=== PATIENT | female | born 1995 | race Caucasian/White ===

== ENCOUNTER 2024-04-08 19:03 | Emergency (ER) | payer OTHER, SELFPAY ==
[2024-04-08 19:15] VITALS: BP 139/81; PULSE 94; RESP 20; TEMP 36.7; O2SAT 98; BMI 32.3
--- NOTE | 2024-04-08 19:23 | CRLHL7_ITS ---
For Patients: As a result of the Cures Act, medical imaging exams and procedure reports are released immediately into your electronic medical record. You may view this report before your referring provider. If you have questions, please contact your health care provider. INDICATION: Shortness of breath TECHNIQUE: Chest radiograph 2 views COMPARISON: None FINDINGS: Mediastinum: The mediastinum is normal in appearance. The heart silhouette is normal in size and morphology. Mild elevation of the right hemidiaphragm is noted. Lung: Both lungs are unremarkable in appearance with small lung volumes. No sign of pleural effusion seen. No pneumothorax is identified. Bone and Soft tissue: Unremarkable for age. IMPRESSION: 1. No acute cardiopulmonary disease is seen. Dictated by Wood Sullivan MD @ 04/08/2024 7:45:11 PM Dictated by: Wood Sullivan MD @ 04/08/2024 19:45:20 (Electronically Signed)
--- OUTSIDE RECORDS SUMMARY | 2024-04-08 19:41 | XMS_ITS | Clinical Summary ---
Author Organization [facility] Address [address] [place] [address]. [place] [address] Care Team Providers Care Quarrying Specialist Name Role Phone Yael Neville MD Primary Care Provider mEmy Vance Industrial Machine Operator MACHINE RIVETER BILLING CUSTOMER SERVICE REPRESENTATIVE Unavailable [phone] Allergies Active Allergy Reactions Criticality Noted Date Comments Azithromycin 11/21/2011 Hives Contrast Dye 04/04/2006 Difficulty breathing Penicillins 12/16/2002 Medications buPROPion (WELLBUTRIN XL) 300 MG 24 hr tablet Take 300 mg by mouth daily 1 Active lamoTRIgine (LAMICTAL) 200 MG tablet Take 200 mg by mouth At Bedtime 1 Active SUMAtriptan (IMITREX) 100 MG tablet TK 1 T PO AOS OF HEADACHE. MAY REPEAT IN 2 H PRN 0 Active propranolol (INDERAL) 20 MG tablet Take 1 tablet (20 mg) by mouth 2 times daily 1 Active ipratropium (ATROVENT) 0.06 % nasal sprayIndicatio ns:Suspected COVID-19 virus infection Tyner 2 sprays in nostril 4 times daily 15 mL 1 1 Active guaiFENesin 1200 MG [id number] s:Suspected COVID-19 virus infection Take 1 tablet (1,200 mg) by mouth 2 times daily 60 tablet 1 Active metFORMIN (GLUCOPHAGE XR) 500 MG 24 hr tabletIndicati ons:PCOS (polycystic ovarian syndrome) TAKE 2 TABLETS BY MOUTH EVERY EVENING WITH DINNER 180 tablet 2 Active drospirenone-e thinyl estradiol (PASHA) 3-0.03 MG tabletIndicati ons:PCOS (polycystic ovarian syndrome) Take 1 tablet by mouth daily Patient will call when needs filled. 84 tablet 3 1 04/05/20 24 Discontinued Active Problems Problem Noted Date Diagnosed Date History of prolonged Q-T interval on ECG 020 Overview (01/13/2020): Associated with medication overdose. Normal after recovery. Seen by cardiology 01/02/20. 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 Provider to review and confirm. Passive suicidal ideations 06/12/2012 0 09/06/2016 Viral wart 06/10/2011 09/06/2016 Encounters Date Type Department Care Team Description 04/05/2024 4:55 AM GRAVITY METER OPERATOR - 04/05/2024 5:54 AM [facility] Emergency [facility] Emergency Dept [address] [place] [address] Juan Mares MD Sore throat; Acute cough Discharge Disposition: Home or Self Care 04/05/2024 Travel from Last 3 Months Immunizations Name Administration Dates Next Due COVID-19 MONOVALENT 12+ (Pfizer) 09/29/2020,05/0 06/2020 DTAP (<7y) 01/06/2003, 9,02/21/1998,12/23,1997 HEPA 07/15/2010,09/03/2009 HIB (PRP-T) 02/01/1999, 8,1997,11/03 HPV 03/03/2015,11/04/2014,07/25/2012 HepB 02/01/1999, 8,1997,09/13 Influenza (H1N1) 05/02/2009 Influenza (IIV3) PF 02/03/2011,06/17/2009 MMR 12/16/2002,02/01/1999 Mantoux Tuberculin Skin Test 12/07/2021,08/15/19 Meningococcal ACWY (Menactra ) 11/30/2015,07/25/2012 OPV, trivalent, live 09/22/1998,1997,11/03 Poliovirus, inactivated (IPV) 12/16/2002 TDAP Vaccine (Adacel) 10/10/2019,09/03/2009 Varicella 12/16/2002 Varicella Pt Report Hx of Varicella/Chicken Pox 05/01/2003 Family History Medical History Relation Comments Diabetes Maternal Grandfather Depression Mother Gastrointestinal Disease Other materna l aunt with IBS,mom's brother iwth some sort of gi issues Breast Cancer No family hx of C.A.D. No family hx of Cancer - colorectal No family hx of Hypertension No family hx of Relation Status Comments Father Alive Maternal Grandfather Mother Alive Other Social History Tobacco Use Types Packs/Day Years Used Date Smoking Tobacco: Former Vaping Device Quit: 12/02/2018 Smokeless Tobacco: Never Tobacco Cessation:Counseling Given: No Alcohol Use Standard Drinks/Week Comments Not Currently 0 (1 standard drink = 0.6 oz pur e alcohol) PHQ-2 Answer Date Recorded PHQ-2 Score 0 10/28/2020 Adolescent Education Answer Date Record ed Getting School Help Needed Not on file 02/01 Estimated Date of Delivery Comme nts Yes 08/06/2024 Sex and Gender Information Value Date Recorded Sex Assigned at Female 08/26/2020 11:58 AM CDT Legal Sex Female 3:37 AM GRAVITY METER OPERATOR Gender Identity Female 08/26/2020 11:58 AM CDT Sexual Orientation Choose not to disclose 2020 11:58 AM CDT Travel History Travel Start Travel End [place] 03/29/2024 03/31/2024 Last Filed Vital Signs Vital Sign Reading Time Taken Comments Blood Pressure 122/81 04/05/2024 4:49 AM GRAVITY METER OPERATOR Pulse 98 04/05/2024 4:49 AM GRAVITY METER OPERATOR Temperature 36.9 C (98.4 F) 04/05/2024 4:49 AM GRAVITY METER OPERATOR Respiratory Rate 20 04/05/2024 4:49 AM GRAVITY METER OPERATOR Oxygen Saturation 99% 04/05/2024 4:49 AM GRAVITY METER OPERATOR Inhaled Oxygen Concentration - - Weight 95.4 kg (210 lb 5.1 oz) 04/05/2024 4:49 A M GRAVITY METER OPERATOR Height 167.6 cm (5' 6) 04/05/2024 4:49 AM GRAVITY METER OPERATOR Body Mass Index 33.95 04/05/2024 4:49 AM GRAVITY METER OPERATOR Plan of Treatment Health Maintenance Due Date Last Done Comments PHQ-9 04/29/2021 10/28/2020, 04/2 11/2020, 09/10/2019, Additional history exists ANNUAL REVIEW OF HM ORDERS 10/28/2021 10/28/2020 YEARLY PREVENTIVE VISIT 10/28/2021 10/29/19 21, 08/14/2017, 11/30/2015, Additional history exists COVID-19 Vaccine ( season) 2023 04/19/2021, 09/29/2020, 08/31/2020 INFLUENZA VACCINE (#1) 2023 , 12/20/2021, 01/15/2021, Additional history exists ADVANCE CARE PLANNING 11/26/2024 11/27/2019 PAP 06/29/2025 06/29/2022, 10/28/2020 DTAP/TDAP/TD IMMUNIZATION (8 - Td or Tdap) 10/09/2029 10/10/2019, 09/03/2009, 01/06/2003, Additional history exists HEPATITIS B IMMUNIZATION Completed 999, 02/01/1999, 02/21/1998, Additional history exists HPV IMMUNIZATION Completed 03/13/2015, 06/2014, 11/04/2014, Additional history exists MENINGITIS IMMUNIZATION Completed 11/30/2015, 07/25 DEPRESSION ACTION PLAN Completed 11/28/2016, 2015 HEPATITIS C SCREENING Completed 10/28/2020 HIV SCREENING Completed 10/28/2020 CHLAMYDIA SCREENING Discontinued 06/29/2022, Pneumococcal Vaccine: Pediatrics (0 to 5 Years) and At-Risk Patients (6 to 64 Years) Aged Out No longer eligible based on patient's age to complete this topic RSV MONOCLONAL ANTIBODY Aged Out No l onger eligible based on patient's age to complete this topic RSV VACCINE (No Doses Required) Completed Procedures Procedure Name Priority Date/Time Associated Diagnosis Comments GROUP A STREPTOCOCCUS PCR THROAT SWAB STAT 04/05/2024 4:55 AM GRAVITY METER OPERATOR INFLUENZA A/B, RSV AND SARS-COV2 PCR STAT 04/05/2024 4:55 AM GRAVITY METER OPERATOR CHLAMYDIA TRACHOMATIS/NEISSERI A GONORRHOEAE BY PCR Routine 06/29/2022 4:48 PM GRAVITY METER OPERATOR Encounter for screening for infections with a predominantly sexual mode of transmission GYNECOLOGIC CYTOLOGY Routine 06/29/2022 4:06 PM GRAVITY METER OPERATOR Encounter for screening for malignant neoplasm of cervix [ICD-10-CM] HIV ANTIGEN ANTIBODY COMBO Routine 10/28/2020 4:20 PM CDT Screening for HIV (human immunodeficiency virus) HEPATITIS C SCREEN REFLEX TO HCV RNA QUANT AND GENOTYPE Routine 10/28/2020 4:20 PM CDT Need for hepatitis C screening test from Last 3 Months or Most Recently Relevant to Health Maintenance Results * Influenza A/B, RSV and SARS-CoV2 PCR (COVID-19) Nose (04/05/2024 4:55 AM GRAVITY METER OPERATOR) Influenza A PCR Negative Negative 04/05/2024 5:41 AM GRAVITY METER OPERATOR [facility] Influenza B PCR Negative Negative 04/05/2024 5:41 AM GRAVITY METER OPERATOR [facility] RSV PCR Negative Negative 04/05/2024 5:41 AM GRAVITY METER OPERATOR [facility] SARS CoV2 PCR Negative Negative 04/05/2024 5:41 AM GRAVITY METER OPERATOR [facility] Comment:NEGATIVE: SARS-CoV-2 (COVID-19) RNA not detected, presumed negative. Swab NASAL STRUCTURE / Unknown Non-blood Collection / Unknown 04/05/2024 4:55 AM GRAVITY METER OPERATOR 04/05/2024 5:02 AM GRAVITY METER OPERATOR Narrative LABORATORY - 04/05/2024 5:41 AM GRAVITY METER OPERATOR Testing was performed using the Xpert Xpress CoV2/Flu/RSV Assay on the [employer] Instrument. This test should be ordered for the detection of SARS- CoV2, influenza, and RSV viruses in individuals with signs and symptoms of respiratory tract infection. This test is for in vitro diagnostic use under the [place] FDA for laboratories certified under CLIA to perform high or moderate complexity testing. This test has been [place] FDA cleared. A negative result does not rule out the presence of PCR inhibitors in the specimen or target RNA in concentration below the limit of detection for the assay. If only one viral target is positive but coinfection with multiple targets is suspected, the sample should be re-tested with another FDA cleared, approved, or authorized test, if coninfection would change clinical management. This test was validated by the [facility] [employer]. These laboratories are certified under the Clinical Laboratory Improvement Amendments of 1988 (CLIA-88) as qualified to perfom high complexity laboratory testing. Juan Mares MD LAB - MICRO GENER AL ORDERABLES Final Result [facility] Acute Care Lab [address] [facility] (1st floor, no room number) [place] [address], [facility] * Group A Streptococcus PCR Throat Swab (04/05/2024 4:55 AM GRAVITY METER OPERATOR) Group A strep by PCR Not Detected Not Detected 04/05/2024 5:29 AM GRAVITY METER OPERATOR LABORATORY Swab STRUCTURE OF ANTERIOR PORTION OF NECK / Unknown Non-blood Collection / Unknown 04/05/2024 4:55 AM GRAVITY METER OPERATOR 04/05/2024 5:02 AM GRAVITY METER OPERATOR Narrative LABORATORY - 04/05/2024 5:29 AM GRAVITY METER OPERATOR The Xpert Xpress Strep A test, performed on the [employer] Systems, is a rapid, qualitative in vitro diagnostic test for the detection of Streptococcus pyogenes (Group A -hemolytic Streptococcus, Strep A) in throat swab specimens from patients with signs and symptoms of pharyngitis. The Xpert Xpress Strep A test can be used as an aid in the diagnosis of Group A Streptococcal pharyngitis. The assay is not intended to monitor treatment for Group A Streptococcus infections. The Xpert Xpress Strep A test utilizes an automated real-time polymerase chain reaction (PCR) to detect Streptococcus pyogenes DNA. us Juan Mares MD LAB - MICRO GENER AL ORDERABLES Final Result [facility] Acute [facility] Lab [address] [facility] (1st floor, no room number) [place] [address], [facility] * Chlamydia trachomatis/Neisseria gonorrhoeae by PCR (06/29/2022 4:48 PM GRAVITY METER OPERATOR) Pathologist [facility] Chlamydia Trachomatis Negative Negative 06/30/2022 12:02 PM GRAVITY METER OPERATOR [facility] Comment: Negative for C. trachomatis rRNA by edge grinder machine mediated amplification. A negative result by edge grinder machine mediated amplification does not preclude the presence of infection because results are dependent on proper and adequate collection, absence of inhibitors and sufficient rRNA to be detected. Neisseria gonorrhoeae Negative Negative 06/30/2022 12:02 PM GRAVITY METER OPERATOR [facility] Comment:Negative for N. gono rrhoeae rRNA by edge grinder machine mediated amplification. A negative result by edge grinder machine mediated amplification does not preclude the presence of C. trachomatis infection because results are dependent on proper and adequate collection, absence of inhibitors and sufficient rRNA to be detected. Swab VAGINAL STRUCTURE / Unknown Non-blood Collection / Unknown 06/29/2022 4:48 PM GRAVITY METER OPERATOR 06/29/2022 8:05 PM GRAVITY METER OPERATOR Rabia Aguilar MD LAB - MICRO G ENERAL ORDERABLES Final Result [facility] Inf. Diseases Diag. Lab [address] [facility], [address] [place] [address], [place] [phone] * Gynecologic Cytology (PAP) (06/29/2022 4:06 PM GRAVITY METER OPERATOR) Interpretation Negative for Intraepithelial Lesion or Malignancy (NILM) 07/04/2022 10:47 AM GRAVITY METER OPERATOR [facility] Comment Papanicolaou Test Limitations: Cervical cytology is a screening test with limited sensitivity, and regular screening is critical for cancer prevention. Pap tests are primarily effective for the diagnosis/prevent ion of squamous cell carcinoma, not adenocarcinoma or other cancers. 07/04/2022 10:47 AM GRAVITY METER OPERATOR [facility] Specimen Adequacy Satisfactory for evaluation, endocervical/holcomb sformation zone component present 07/04/2022 10:47 AM GRAVITY METER OPERATOR [facility] Clinical Information none 07/04/2022 10:47 AM GRAVITY METER OPERATOR [facility] LMP/Menopause Date 06/04/22 07/04/2022 10:47 AM GRAVITY METER OPERATOR [facility] Reflex Testing Yes if ASCUS 07/05/19 10:47 AM GRAVITY METER OPERATOR [facility] Previous Abnormal? No 07/04/2022 10:47 AM GRAVITY METER OPERATOR [facility] Previous Abnormal Diagnosis negative 07/04/2022 10:47 AM GRAVITY METER OPERATOR [facility] Performing Labs The technical component of this testing was completed at [facility] 07/04/2022 10:[address] [facility] Brushing ENDOCERVICAL STRUCTURE / Unknown 06/29/2022 4:06 PM GRAVITY METER OPERATOR 06/29/2022 8:03 PM GRAVITY METER OPERATOR Rabia Lilia RECINOS - TYRONE Final Result [facility] [address] [facility], [address] [place] [address], [facility] [phone] * HIV Antigen Antibody Combo (10/28/2020 4:20 PM CDT) HIV Antigen Antibody Combo Nonreactive NR^Nonrea ctive 10/29/2020 4:34 PM CDT [facility] Comment:HIV-1 p24 Ag & HIV-1 /HIV-2 Ab Not Detected Blood 10/28/2020 4:20 PM CDT 10/28/2020 4:21 PM CDT Yael Neville MD LAB - BLOOD ORDERABLES Cary l Result [facility] [address] [place] [address] * Hepatitis C Screen Reflex to HCV RNA Quant and Genotype (10/28/2020 4:20 PM CDT) Hepatitis C Antibody Nonreactive NR^Nonre active 10/29/2020 4:41 PM CDT [facility] Comment: Assay performance characteristics have not been established for newborns, infants, and children Blood 10/28/2020 4:20 PM CDT 10/28/2020 4:21 PM CDT Yael Neville MD LAB - BLOOD ORDERABLES Cary l Result Performing Organization Address [facility] Co de Phone Number [facility] [address] [place] [address] from Last 3 Months or Most Recently Relevant to Health Maintenance Insurance [employer] [facility] Advance Directives For more information, please contact: [phone] * Full Code (Latest Code Status on File) Date Activated Date Inactivated Comments 10/10/2019 12:38 PM 10/11/2019 4:37 PM Question Answer Comments Code status determined by: Discussion with patie nt/legal decision maker Care Teams Quarrying Specialist Relationship Specialty Start Date End Date Yael Neville MD [facility] [place] [address] PCP - General Internal Medicine 04/11/16 Emmy Vance Cnp, MARU BILLING CUSTOMER SERVICE REPRESENTATIVE [employer] [place] [address] [place] [address] Nurse Practitioner Nurse Practitioner 08/26/20
--- OUTSIDE RECORDS SUMMARY | 2024-04-08 19:42 | XMS_ITS | Encounter Summary ---
Author Organization [facility] Address [address] [place] [address]. [place] [address] Care Team Providers Care Deck And Hull Assembler Name Role Phone Yael Neville MD Primary Care Provider [phone] Yael Neville MD Unavailable [phone] Gabino Peña MD Unavailable [phone] Alison Yan PA-C Unavailable [phone] Emmy Vance Power Transformer Repair Supervisor REGISTERED ASSOCIATE INCLUSION SPECIAL EDUCATOR Unavailable [phone] Encounter Details Date Type Department Care Team (Late st Contact Info) Description 09/01/2020 Documentation Only INTERFACED REPORT Unknown, Provider Social History Tobacco Use Types Packs/Day Years Used Date Smoking Tobacco: Former Vaping Device Quit: 12/02/2018 Smokeless Tobacco: Never Alcohol Use Standard Drinks/Week Comments Not Currently 0 (1 standard drink = 0.6 oz pur e alcohol) PHQ-2 Answer Date Recorded PHQ-2 Score 0 12/02/2019 Comments No Sex and Gender Information Value Date Recorded Sex Assigned at Female 08/26/2020 11:58 AM CDT Legal Sex Female 3:37 AM VOICE ENGINEER Gender Identity Female 08/26/2020 11:58 AM CDT Sexual Orientation Choose not to disclose 2020 11:58 AM CDT Travel History Travel Start Travel End [place] 03/29/2024 03/31/2024 COVID-19 Exposure Response Date Recorded In the last month, have you been in contact with someone who was confirmed or suspected to have Coronavirus / COVID-19? No / Unsure 08/26/2020 2:17 PM CDT documented as of this encounter Plan of Treatment Not on file documented as of this encounter Visit Diagnoses Not on filedocumented in this encounter Additional Health Concerns Assessment Noted Time PHQ-9 Depression Total Score: 3 08/28/19 21 7:02 AM CDT documented as of this encounter Care Teams Deck And Hull Assembler Relationship Specialty Start Date End Date Yael Neville MD [address] [place] [address] [place] [address] PCP - General Internal Medicine 04/11/16 Yael Neville MD [address] [place] [address] [place] [address] Assigned PCP 06/13/16 03/22/24 Gabino Peña MD [address] [place] [address] Assigned Heart and Vascular Provider 02/21/20 07/03/21 Alison Yan PA-C [address] [place] [address] Assigned Sleep Provider 07/15/20 2 Emmy Vance Power Transformer Repair Supervisor, MARU INCLUSION SPECIAL EDUCATOR [employer] [place] [address] [place] [address] Nurse Practitioner Nurse Practitioner 08/26/20 documented as of this encounter
--- OUTSIDE RECORDS SUMMARY | 2024-04-08 19:42 | XMS_ITS | Encounter Summary ---
Author Organization [facility] Address [address] [place] [address]. [place] [address] Care Team Providers Care Structural Steel Worker Apprentice Name Role Phone Yael Neville MD Primary Care Provider [phone] Yael Neville MD Unavailable [phone] Frank Morrow Unavailable Unavailable Saul Freire Unavailable [phone] Gabino Peña MD Unavailable [phone] Alison Yan PA-C Unavailable [phone] Emmy Vance Nutrition Internship SUSTAINABILITY COACH LABORATORY COORDINATOR Unavailable [phone] Reason for Visit * Reason Comments Medication Refill Encounter Details Date Type Department Care Team (Late st Contact Info) Description 06/26/2019 Refill [facility] Jacek [address] [place] [address] [address] [place] [address] Yael Neville MD [address] [place] [address] [place] [address] Medication Refill Social History Tobacco Use Types Packs/Day Years Used Date Smoking Tobacco: Never Smokeless Tobacco: Never Alcohol Use Standard Drinks/Week Comments Yes 0 (1 standard drink = 0.6 oz pur e alcohol) PHQ-2 Answer Date Recorded PHQ-2 Score 0 05/14/2019 Comments No Sex and Gender Information Value Date Recorded Sex Assigned at Female 08/26/2020 11:58 AM CDT Legal Sex Female 3:37 AM COSTUMER Gender Identity Female 08/26/2020 11:58 AM CDT Sexual Orientation Choose not to disclose 2020 11:58 AM CDT Travel History Travel Start Travel End [place] 03/29/2024 03/31/2024 documented as of this encounter Miscellaneous Notes * Telephone Encounter - Arin Tay RN - 06/27/2019 9:51 AM COSTUMER Prescription approved per [facility] Refill Protocol. UMER documented in this encounter Plan of Treatment Not on file documented as of this encounter Visit Diagnoses Diagnosis 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 Polycystic ovaries documented in this encounter Additional Health Concerns Infection Onset Date Last Indicated Resolved Time Rule Out COVID-19 01/14/2020 01/14/2020 01/15/2020 10:31 PM CDT Rule Out COVID-19 04/06/2020 04/06/2020 04/07/2020 10:32 AM COSTUMER Rule Out COVID-19 06/11/2020 06/11/2020 06/11/2020 7:00 PM COSTUMER Assessment Noted Time PHQ-9 Depression Total Score: 8 05/15/19 20 7:02 AM COSTUMER documented as of this encounter Care Teams Structural Steel Worker Apprentice Relationship Specialty Start Date End Date Yael Neville MD [address] [place] [address] [place] [address] PCP - General Internal Medicine 04/11/16 Yael Neville MD [address] [place] [address] [place] [address] Assigned PCP 06/13/16 03/22/24 Frank Morrow Personal Advocate & Liaison (PAL) 03/11/19 11/03/19 Saul Freire LSW [facility] Digital Media Designer Primary Care - CC 12/02/1903/20 Gabino Peña MD [address] [place] [address] Assigned Heart and Vascular Provider 02/21/20 07/03/21 Alison Yan PA-C [address] [place] [address] Assigned Sleep Provider 07/15/20 2 Emmy Vance Cnp, APRN LABORATORY COORDINATOR [employer] [place] [address] [place], [place] [id number] Nurse Practitioner Nurse Practitioner 08/26/20 documented as of this encounter
--- OUTSIDE RECORDS SUMMARY | 2024-04-08 19:42 | XMS_ITS | Encounter Summary ---
Author Organization [facility] Address [address] [place] [address]. [place] [address] Care Team Providers Care Chemical Dependency Counselor Name Role Phone Yael Neville MD Primary Care Provider [phone] Yael Neville MD Unavailable Frank Morrow Unavailable Unavailable Saul Freire Unavailable [phone] Gabino Peña MD Unavailable [phone] Alison Yan PA-C Unavailable [phone] Emmy Vance Ged Preparation Teacher SHELLFISH WEIGHER SQUEEGEE FINISHER Unavailable [phone]- [phone] Encounter Details Date Type Department Care Team (Late st Contact Info) Description 10/07/2019 MyC Medical Advice [facility] [address] [facility] [address] [place] [address] Yael Neville MD [address] [facility] [place] [address] Social History Tobacco Use Types Packs/Day Years Used Date Smoking Tobacco: Never Smokeless Tobacco: Never Alcohol Use Standard Drinks/Week Comments Yes 0 (1 standard drink = 0.6 oz pur e alcohol) PHQ-2 Answer Date Recorded PHQ-2 Score 4 09/10/2019 Comments No Sex and Gender Information Value Date Recorded Sex Assigned at Female 08/26/2020 11:58 AM CDT Legal Sex Female 3:37 AM RESEARCH ARCHAEOLOGIST Gender Identity Female 08/26/2020 11:58 AM CDT Sexual Orientation Choose not to disclose 2020 11:58 AM CDT Travel History Travel Start Travel End [place] 03/29/2024 03/31/2024 COVID-19 Exposure Response Date Recorded In the last month, have you been in contact with someone who was confirmed or suspected to have Coronavirus / COVID-19? No / Unsure 10/10/2019 2:22 AM CDT documented as of this encounter Miscellaneous Notes * Telephone Encounter - Yael Neville MD - 10/09/2019 3:19 PM CDT To staff. saying OK to work on 10/12. She should be able to print from [employer]. Yael Neville M.D. documented in this encounter Plan of Treatment Not on file documented as of this encounter Visit Diagnoses Not on filedocumented in this encounter Additional Health Concerns Infection Onset Date Last Indicated Resolved Time Rule Out COVID-19 01/14/2020 01/14/2020 01/15/2020 10:31 PM CDT Rule Out COVID-19 04/06/2020 04/06/2020 04/07/2020 10:32 AM RESEARCH ARCHAEOLOGIST Rule Out COVID-19 06/11/2020 06/11/2020 06/11/2020 7:00 PM RESEARCH ARCHAEOLOGIST Assessment Noted Time PHQ-9 Depression Total Score: 16 020 8:26 AM CDT documented as of this encounter Care Teams Chemical Dependency Counselor Relationship Specialty Start Date End Date Yael Neville MD [address] [place] [address] [place] [address] PCP - General Internal Medicine 04/11/16 Yael Neville MD [address] [facility] [place] [address] Assigned PCP 06/13/16 03/22/24 Frank Morrow Personal Advocate & Liaison (PAL) 03/11/19 11/03/19 Saul Freire LSW Clinic Correction Officer Head Primary Care - CC 12/02/1903/20 Gabino Peña MD [address] [place] [id number] Assigned Heart and Vascular Provider 02/21/20 07/03/21 Alison Yan PA-C [address] [place] [address] Assigned Sleep Provider 07/15/20 2 Emmy Vance Cnp, MARU DOWNS [employer] [place] [address] [place] [address] Nurse Practitioner Nurse Practitioner 08/26/20 documented as of this encounter
--- OUTSIDE RECORDS SUMMARY | 2024-04-08 19:42 | XMS_ITS | Encounter Summary ---
Author Organization [facility] Address [address] [place] [address]. [place] [address] Care Team Providers Care Photographic Editor Name Role Phone Yael Neville MD Primary Care Provider [phone] Yael Neville MD Unavailable [phone] Gabino Peña MD Unavailable [phone] Alison Yan PA-C Unavailable [phone] Emmy Vance Grooving Machine Operator INSULATION CUPOLA CHARGER MACHINE FEATHEREDGER AND REDUCER Unavailable [phone] Encounter Details Date Type Department Care Team (Late st Contact Info) Description 09/30/2020 Documentation Only INTERFACED REPORT Unknown, Provider Social [...] AM CDT Legal Sex Female 3:37 AM HOTBED LEVER OPERATOR Gender Identity Female 08/26/2020 11:58 AM CDT Sexual Orientation Choose not to disclose 2020 11:58 AM CDT Travel History Travel Start Travel End [place] 03/29/2024 03/31/2024 documented as of this encounter Plan of Treatment Not on file documented as of this encounter Visit Diagnoses Not on filedocumented in this encounter Additional Health Concerns Assessment Noted Time PHQ-9 Depression Total Score: 3 08/28/19 21 7:02 AM CDT documented as of this encounter Care Teams Photographic Editor Relationship Specialty Start Date End Date Yael Neville MD [facility] [place] [address] PCP - General Internal Medicine 04/11/16 Yael Neville MD [address] [place] [address] [place] [address] Assigned PCP 06/13/16 03/22/24 Gabino Peña MD [address] [place] [address] Assigned Heart and Vascular Provider 02/21/20 07/03/21 Alison Yan PA-C [address] [place] [address] Assigned Sleep Provider 07/15/20 2 Emmy Vance Cnp, MARU DOWNS [employer] [place] [address] [place] [address] Nurse Practitioner Nurse Practitioner 08/26/20 documented as of this encounter
--- OUTSIDE RECORDS SUMMARY | 2024-04-08 19:42 | XMS_ITS | Referral Summary ---
Author Organization [facility] Address [address] [place] [address]. [place] [address] Care Team Providers Care Gas Torch Brazier Name Role Phone Yael Neville MD Primary Care Provider Emmy Vance Cardiology Physician AGENCY OPERATOR TAGMAN Unavailable [phone] Encounters Date Type Department Care Team Description 04/05/2024 Travel 04/05/2024 4:55 AM RUBBER TURNER - 04/05/2024 5:54 AM RUBBER TURNER Emergency [facility] Emergency Dept [address] [place] [address] Juan Mares MD Sore throat; Acute cough Discharge Disposition: Home or Self Care from Last 3 Months Allergies Active Allergy Reactions Criticality Noted Date [...] % nasal sprayIndicatio ns:Suspected COVID-19 virus infection [place] 2 sprays in nostril 4 times daily 15 mL 1 1 Active guaiFENesin 1200 MG [id number] s:Suspected COVID-19 virus infection Take 1 tablet [...] 06/12/2012 0 09/06/2016 Viral wart 06/10/2011 09/06/2016 Immunizations Name Administration Dates Next Due COVID-19 [...] Pt Report Hx of Varicella/Chicken Pox 05/01/2003 Social History Tobacco Use Types Packs/Day Years [...] AM CDT Legal Sex Female 3:37 AM RUBBER TURNER Gender Identity Female 08/26/2020 11:58 AM CDT Sexual Orientation Choose not to disclose 2020 11:58 AM CDT Travel History Travel Start Travel End [place] 03/29/2024 03/31/2024 Last Filed Vital Signs Vital Sign Reading Time Taken Comments Blood Pressure 122/81 04/05/2024 4:49 AM RUBBER TURNER Pulse 98 04/05/2024 4:49 AM RUBBER TURNER Temperature 36.9 C (98.4 F) 04/05/2024 4:49 AM RUBBER TURNER Respiratory Rate 20 04/05/2024 4:49 AM RUBBER TURNER Oxygen Saturation 99% 04/05/2024 4:49 AM RUBBER TURNER Inhaled Oxygen Concentration - - Weight 95.4 kg (210 lb 5.1 oz) 04/05/2024 4:49 A M RUBBER TURNER Height 167.6 cm (5' 6) 04/05/2024 4:49 AM RUBBER TURNER Body Mass Index 33.95 04/05/2024 4:49 AM RUBBER TURNER Plan of Treatment Not on file Procedures Procedure Name Priority Date/Time Associated Diagnosis Comments GROUP A STREPTOCOCCUS PCR THROAT SWAB STAT 04/05/2024 4:55 AM RUBBER TURNER INFLUENZA A/B, RSV AND SARS-COV2 PCR STAT 04/05/2024 4:55 AM RUBBER TURNER CHLAMYDIA TRACHOMATIS/NEISSERI A GONORRHOEAE BY PCR Routine 06/29/2022 4:48 PM RUBBER TURNER Encounter for screening for infections with a predominantly sexual mode of transmission GYNECOLOGIC CYTOLOGY Routine 06/29/2022 4:06 PM RUBBER TURNER Encounter for screening for malignant neoplasm of [...] SARS-CoV2 PCR (COVID-19) Nose (04/05/2024 4:55 AM RUBBER TURNER) Influenza A PCR Negative Negative 04/05/2024 5:41 AM RUBBER TURNER [facility] Influenza B PCR Negative Negative 04/05/2024 5:41 AM RUBBER TURNER [facility] RSV PCR Negative Negative 04/05/2024 5:41 AM RUBBER TURNER [facility] SARS CoV2 PCR Negative Negative 04/05/2024 5:41 AM RUBBER TURNER [facility] Comment:NEGATIVE: SARS-CoV-2 (COVID-19) RNA not detected, presumed negative. Swab NASAL STRUCTURE / Unknown Non-blood Collection / Unknown 04/05/2024 4:55 AM RUBBER TURNER 04/05/2024 5:02 AM RUBBER TURNER Narrative LABORATORY - 04/05/2024 5:41 AM RUBBER TURNER Testing was performed using the Xpert Xpress CoV2/Flu/RSV Assay on the [employer] Clubpert Instrument. This test should be ordered for [...] management. This test was validated by the [facility]. These laboratories are certified under the Clinical Laboratory Improvement Amendments of 1988 (CLIA-88) as qualified to perfom high complexity laboratory testing. Juan Mares MD LAB - MICRO GENER AL ORDERABLES Final Result LABORATORY [facility] Acute Care Lab [address] [facility] (1st floor, no room number) [place] [address], [facility] * Group A Streptococcus PCR Throat Swab (04/05/2024 4:55 AM RUBBER TURNER) Group A strep by PCR Not Detected Not Detected 04/05/2024 5:29 AM RUBBER TURNER LABORATORY Swab STRUCTURE OF ANTERIOR PORTION OF NECK / Unknown Non-blood Collection / Unknown 04/05/2024 4:55 AM RUBBER TURNER 04/05/2024 5:02 AM RUBBER TURNER Narrative LABORATORY - 04/05/2024 5:29 AM RUBBER TURNER The Xpert Xpress Strep A test, performed on the GeneXpert Instrument Systems, is a rapid, qualitative in [...] - MICRO GENER AL ORDERABLES Final Result [facility] Acute Care Lab [address] [facility] (1st floor, no room number) [place] [address], [facility] * Chlamydia trachomatis/Neisseria gonorrhoeae by PCR (06/29/2022 4:48 PM RUBBER TURNER) Pathologist [facility] Chlamydia Trachomatis Negative Negative 06/30/2022 12:02 PM RUBBER TURNER [facility] Comment: Negative for C. trachomatis rRNA by glass designer mediated amplification. A negative result by glass designer mediated amplification does not preclude the presence of infection because results are dependent on proper and adequate collection, absence of inhibitors and sufficient rRNA to be detected. Neisseria gonorrhoeae Negative Negative 06/30/2022 12:02 PM RUBBER TURNER [facility] Comment:Negative for N. gono rrhoeae rRNA by glass designer mediated amplification. A negative result by glass designer mediated amplification does not preclude the presence of C. trachomatis infection because results are dependent on proper and adequate collection, absence of inhibitors and sufficient rRNA to be detected. Swab VAGINAL STRUCTURE / Unknown Non-blood Collection / Unknown 06/29/2022 4:48 PM RUBBER TURNER 06/29/2022 8:05 PM RUBBER TURNER Rabia Aguilar MD LAB - MICRO G ENERAL ORDERABLES Final Result [facility] Inf. Diseases Diag. Lab [address] [facility], [address] [place] [address], [place] [phone] * Gynecologic Cytology (PAP) (06/29/2022 4:06 PM RUBBER TURNER) Interpretation Negative for Intraepithelial Lesion or Malignancy (NILM) 07/04/2022 10:47 AM RUBBER TURNER [facility] Comment Papanicolaou Test Limitations: Cervical cytology is a screening test with limited sensitivity, and regular screening is critical for cancer prevention. Pap tests are primarily effective for the diagnosis/prevent ion of squamous cell carcinoma, not adenocarcinoma or other cancers. 07/04/2022 10:47 AM RUBBER TURNER [facility] Specimen Adequacy Satisfactory for evaluation, endocervical/holocmb sformation zone component present 07/04/2022 10:47 AM RUBBER TURNER [facility] Clinical Information none 07/04/2022 10:47 AM RUBBER TURNER [facility] LMP/Menopause Date 06/04/22 07/04/2022 10:47 AM RUBBER TURNER [facility] Reflex Testing Yes if ASCUS 07/05/19 10:47 AM RUBBER TURNER [facility] Previous Abnormal? No 07/04/2022 10:47 AM RUBBER TURNER [facility] Previous Abnormal Diagnosis negative 07/04/2022 10:47 AM RUBBER TURNER [facility] Performing Labs The technical component of this testing was completed at [facility] 07/04/2022 10:47 AM [facility] Brushing ENDOCERVICAL STRUCTURE / Unknown 06/29/2022 4:06 PM RUBBER TURNER 06/29/2022 8:03 PM RUBBER TURNER Rabia Aguilar MD LAB - TYRONE Final Result [facility] [address] [facility], [address] [address], [facility] [phone] * HIV Antigen Antibody Combo (10/28/2020 4:20 PM CDT) HIV Antigen Antibody Combo Nonreactive NR^Nonrea ctive 10/29/2020 4:34 PM CDT [facility] Comment:HIV-1 p24 Ag & HIV-1 /HIV-2 Ab Not Detected Blood 10/28/2020 4:20 PM CDT 10/28/2020 4:21 PM CDT us Yael Neville MD LAB - BLOOD ORDERABLES Cary l Result [facility] [address] [place] [address] * Hepatitis C Screen Reflex to HCV RNA Quant and Genotype (10/28/2020 4:20 PM CDT) Hepatitis C Antibody Nonreactive NR^Nonre active 10/29/2020 4:41 PM CDT [facility] Comment: Assay performance characteristics have not been established for newborns, infants, and children Blood 10/28/2020 4:20 PM CDT 10/28/2020 4:21 PM CDT us Yael Neville MD LAB - BLOOD ORDERABLES Cary l Result Performing Organization Address City/[facility]/ZIP Co de Phone Number [address] [address] from Last 3 Months or Most Recently Relevant to Health Maintenance Insurance [employer] COMMERCIAL [facility] Advance Directives For more information, please contact: [phone] * Full Code (Latest Code Status on File) Date Activated Date Inactivated Comments 10/10/2019 12:38 PM 10/11/2019 4:37 PM Question Answer Comments Code status determined by: Discussion with patie nt/legal decision maker Care Teams Gas Torch Brazier Relationship Specialty Start Date End Date Yael Neville MD [address] [facility] [place] [address] PCP - General Internal Medicine 04/11/16 Emmy Vance Cnp, MARU DOWNS [employer] [place] [address] [place] [address] Nurse Practitioner Nurse Practitioner 08/26/20
--- OUTSIDE RECORDS SUMMARY | 2024-04-08 19:42 | XMS_ITS | Encounter Summary ---
Author Organization [facility] Address [address] [place] [address]. [place] [address] Care Team Providers Care Senior Asic Design Engineer Name Role Phone Yael Neville MD Primary Care Provider [phone] Yael Neville MD Unavailable [phone] Gabino Peña MD Unavailable [phone] Alison Yan PAAshlyC Unavailable [phone] Emmy Vance Communications Tower Climber VALVE MAKER GUNNER'S MATE Unavailable [phone] Encounter Details Date Type Department Care Team (Late st Contact Info) Description 12/10/2020 MyC Medical Advice [facility] [address] [place] [id number] Lucie Dao Social History Tobacco Use Types Packs/Day Years Used Date Smoking Tobacco: Former Vaping Device Quit: 12/02/2018 Smokeless Tobacco: Never Alcohol Use Standard Drinks/Week Comments Not Currently 0 (1 standard drink = 0.6 oz pur e alcohol) PHQ-2 Answer Date Recorded PHQ-2 Score 0 10/28/2020 Comments No Sex and Gender Information Value Date Recorded Sex Assigned at Female 08/26/2020 11:58 AM CDT Legal Sex Female 3:37 AM BREASTFEEDING EDUCATOR Gender Identity Female 08/26/2020 11:58 AM CDT Sexual Orientation Choose not to disclose 2020 11:58 AM CDT Travel History Travel Start Travel End [place] 03/29/2024 03/31/2024 documented as of this encounter Plan of Treatment Not on file documented as of this encounter Visit Diagnoses Not on filedocumented in this encounter Additional Health Concerns Assessment Noted Time PHQ-9 Depression Total Score: 1 10/30/19 21 7:05 AM CDT documented as of this encounter Care Teams Senior Asic Design Engineer Relationship Specialty Start Date End Date Yael Neville MD [address] [place] [address] [place] [address] PCP - General Internal Medicine 04/11/16 Yael Neville MD [address] [place] [address] [place] [address] Assigned PCP 06/13/16 03/22/24 Gabino Peña MD [address] [place] [address] Assigned Heart and Vascular Provider 02/21/20 07/03/21 Alison Yan PA-C [address] [place] [address] Assigned Sleep Provider 07/15/20 2 Emmy Vance Communications Tower Climber, VALVE MAKER GUNNER'S MATE [employer] [place] [address] [place] [address] Nurse Practitioner Nurse Practitioner 08/26/20 documented as of this encounter
--- OUTSIDE RECORDS SUMMARY | 2024-04-08 19:42 | XMS_ITS | Encounter Summary ---
Author Organization [facility] Address [address] [place] [address]. [place] [address] Care Team Providers Care Dry Box Operator Name Role Phone Yael Neville MD Primary Care Provider [phone] Yael Neville MD Unavailable [phone] Gabino Peña MD Unavailable [phone] Emmy Vance Diet Kitchen Cook TUBE TURNER REAL ESTATE ASSOCIATE ATTORNEY Unavailable [phone] Encounter Details Date Type Department Care Team (Late st Contact Info) Description 05/12/2021 MyC Medical Advice [facility] Jacek [address] [place] [address] Drive [address] [place] [phone] [place] [address] [place] [address] [place] [address] Social History Tobacco Use [...] AM CDT Legal Sex Female 3:37 AM BENZENE WORKER Gender Identity Female 08/26/2020 11:58 AM CDT Sexual Orientation Choose not to disclose 2020 11:58 AM CDT Travel History Travel Start Travel End [place] 03/29/2024 03/31/2024 documented as of this encounter Miscellaneous Notes * Telephone Encounter - Arin Tay RN - 05/12/2021 10:[address] Neville, Please see message and advise Thank you Arin Tay RN on 05/12/2021 at 10:54 AM ENE WORKER documented in this encounter Plan of Treatment Not on file documented as of this encounter Visit Diagnoses Not on filedocumented in this encounter Additional Health Concerns Assessment Noted Time PHQ-9 Depression Total Score: 1 10/30/19 21 7:05 AM CDT documented as of this encounter Care Teams Dry Box Operator Relationship Specialty Start Date End Date Yael Neville MD [address] [place] [address] [place] [address] PCP - General Internal Medicine 04/11/16 Yael Neville MD [address] [place] [address] [place] [address] Assigned PCP 06/13/16 03/22/24 Gabino Peña MD [address] [place] [address] Assigned Heart and Vascular Provider 02/21/20 07/03/21 Emmy Vance Cnp, TUBE TURNER REAL ESTATE ASSOCIATE ATTORNEY [facility] [employer] [place] [address] [place] [address] Nurse Practitioner Nurse Practitioner 08/26/20 documented as of this encounter
--- OUTSIDE RECORDS SUMMARY | 2024-04-08 19:42 | XMS_ITS | Encounter Summary ---
Author Organization [facility] Address [address] [place] [address]. [place] [address] Care Team Providers Care Food Supervisor Name Role Phone Yael Neville MD Primary Care Provider [phone] Yael Neville MD Unavailable [phone] Gabino Peña MD Unavailable [phone] Alison YanC Unavailable [phone] Emmy Vance Continuous Yarn Dyeing Machine Operator FITNESS WORKER BOXING INSPECTOR Unavailable [phone] Reason for Visit * Reason Onset Date Comments Appointment 12/09/2020 TB blood test Encounter Details Date Type Department Care Team (Late st Contact Info) Description [facility] [facility] [address] [facility] [address] [place] [phone] Yael Neville MD [address] [place] [address] [place] [address] Appointment (TB blood test) Social History Tobacco Use Types Packs/Day Years [...] AM CDT Legal Sex Female 3:37 AM HOG TRADER Gender Identity Female 08/26/2020 11:58 AM CDT Sexual Orientation Choose not to disclose 2020 11:58 AM CDT Travel History Travel Start Travel End [place] 03/29/2024 03/31/2024 documented as of this encounter Miscellaneous Notes * Telephone Encounter - Lucie Dao - 12/10/2020 11:15 AM CDT Vaximm message sent to patient. * Telephone Encounter - Brenda Kumar - 12/09/2020 8:07 PM CDT Patient needs a TB blood test for school. Can you please put order in for her? documented in this encounter Plan of Treatment Not on file documented as of this encounter Visit Diagnoses Not on filedocumented in this encounter Additional Health Concerns Assessment Noted Time PHQ-9 Depression Total Score: 1 10/30/19 21 7:05 AM CDT documented as of this encounter Care Teams Food Supervisor Relationship Specialty Start Date End Date Yael Neville MD [address] [place] [address] [place] [address] PCP - General Internal Medicine 04/11/16 Yael Neville MD [address] [place] [address] [place] [address] Assigned PCP 06/13/16 03/22/24 Gabino Peña MD [address] [place] [address] Assigned Heart and Vascular Provider 02/21/20 07/03/21 Alison Yan PA-C [address] [facility] [address] [place] [address] Assigned Sleep Provider 07/15/20 2 Emmy Vance Cnp, MARU DOWNS [employer] [place] [address] [place] [address] Nurse Practitioner Nurse Practitioner 08/26/20 documented as of this encounter
--- OUTSIDE RECORDS SUMMARY | 2024-04-08 19:42 | XMS_ITS | Encounter Summary ---
Author Organization [place] [facility] Address [address] [place] [address]. [place] [address] Care Team Providers Care Avid Editor Name Role Phone Yael Neville MD Primary Care Provider [phone] Yael Neville MD Unavailable Gabino Peña MD Unavailable [phone] Alison YanC Unavailable [phone] Emmy Vance Retirement Benefits Specialist TECHNICAL CUSTOMER SUPPORT SPECIALIST COCOA ROOM OPERATOR Unavailable [phone] Reason for Visit * Reason Comments Medication Refill Encounter Details Date Type Department Care Team (Late st Contact Info) Description 07/16/2020 [facility] Jacek [address] [place] [address] [address] [place] [phone] Yael Neville MD [address] [place] [address] [place] [address] Medication Refill Social History [...] AM CDT Legal Sex Female 3:37 AM DIRECTOR HOSPICE OPERATIONS Gender Identity Female 08/26/2020 11:58 AM CDT Sexual Orientation Choose not to disclose 2020 11:58 AM CDT Travel History Travel Start Travel End [place] 03/29/2024 03/31/2024 documented as of this encounter Miscellaneous Notes * Telephone Encounter - Liyah Sosa RN - 07/16/2020 10:35 AM CDT Prescription approved per [facility], [facility] or [facility] refill protocol. Liyah Centeno - Registered Nurse [facility] documented in this encounter Plan of Treatment Not on file documented as of this encounter Visit Diagnoses Diagnosis Suspected COVID-19 virus infection documented in this encounter Additional Health Concerns Assessment Noted Time PHQ-9 Depression Total Score: 16 020 8:26 AM CDT documented as of this encounter Care Teams Avid Editor Relationship Specialty Start Date End Date Yael Neville MD [facility] [place] [address] PCP - General Internal Medicine 04/11/16 Yael Neville MD [address] [place] [address] [place] [address] Assigned PCP 06/13/16 03/22/24 Gabino Peña MD [address] [place] [address] Assigned Heart and Vascular Provider 02/21/20 07/03/21 Alison Yan PA-C [address] [place] [address] Assigned Sleep Provider 07/15/20 2 Emmy Vance Retirement Benefits Specialist, MARU COCOA ROOM OPERATOR [employer] [place] [address], [place] [address] Nurse Practitioner Nurse Practitioner 08/26/20 documented as of this encounter
--- OUTSIDE RECORDS SUMMARY | 2024-04-08 19:42 | XMS_ITS | Encounter Summary ---
Author Organization [facility] Address [address] [place] [address]. [place] [address] Care Team Providers Care Harvest Worker Name Role Phone Yael Neville MD Primary Care Provider +1- [phone] Yael Neville MD Unavailable [phone] Gabino Peña MD Unavailable [phone] Alison Yan PA-C Unavailable + [phone] Emmy Vance Biomedical Specialist PODODERMATOLOGIST MACHINE DESIGN ENGINEER Unavailable +[phone]- [phone] Reason for Visit * Reason Onset Date Comments Refill Request 03/25/2020 metFORMIN (GLUCO PHAGE-XR) 500 MG 24 hr tablet Encounter Details Date Type Department Care Team (Late st Contact Info) Description 03/25/2020 Refill [facility] Jacek [address] [place] [address] [place] [address] [place] [address] [place] [address] Refill Request (metFORMIN (GLUCOPHAGE-XR) 500 MG 24 hr tablet) Social History Tobacco Use Types Packs/Day Years [...] AM CDT Legal Sex Female 3:37 AM POULTRY HANGER Gender Identity Female 08/26/2020 11:58 AM CDT Sexual Orientation Choose not to disclose 2020 11:58 AM CDT Travel History Travel Start Travel End [place] 03/29/2024 03/31/2024 documented as of this encounter Miscellaneous Notes * Telephone Encounter - Pao Stuart RN - 03/27/2020 9:18 AM POULTRY HANGER Prescription approved per [facility] Refill Protocol. Pao Stuart RN [facility] -- Triage Nurse TRY HANGER documented in this encounter Plan of Treatment Not on file documented as of this encounter Visit Diagnoses Diagnosis 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 Polycystic ovaries documented in this encounter Additional Health Concerns Infection Onset Date Last Indicated Resolved Time Rule Out COVID-19 04/06/2020 04/06/2020 04/07/2020 10:32 AM POULTRY HANGER Rule Out COVID-19 06/11/2020 06/11/2020 06/11/2020 7:00 PM POULTRY HANGER Assessment Noted Time PHQ-9 Depression Total Score: 16 020 8:26 AM CDT documented as of this encounter Care Teams Harvest Worker Relationship Specialty Start Date End Date Yael Neville MD [address] [place] [address] [place] [address] PCP - General Internal Medicine 04/11/16 Yael Neville MD [address] [place] [address] [place] [address] Assigned PCP 06/13/16 03/22/24 Gabino Peña MD [address] [place] [address] Assigned Heart and Vascular Provider 02/21/20 07/03/21 Alison Yan PA-C [address] [address] Assigned Sleep Provider 07/15/20 2 Emmy Vance Cnp, MARU DOWNS [facility] [place] [address] [address] Nurse Practitioner Nurse Practitioner 08/26/20 documented as of this encounter
--- OUTSIDE RECORDS SUMMARY | 2024-04-08 19:42 | XMS_ITS | Encounter Summary ---
Author Organization [facility] Address [address] [place] [address]. [place] [address] Care Team Providers Care Energy Manager Name Role Phone Yael Neville MD Primary Care Provider +[phone]- [phone] Yael Neville MD Unavailable [phone] Gabino Peña MD Unavailable [phone] Alison Yan PA-C Unavailable + [phone] Emmy Vance Silviculture Teacher STEAM CONDITIONER OPERATOR EMBEDDED SOFTWARE PROGRAMMER Unavailable [phone]- [phone] Encounter Details Date Type Department Care Team (Late st Contact Info) Description 02/22/2021 Documentation Only INTERFACED REPORT Unknown, Provider Social [...] AM CDT Legal Sex Female 3:37 AM PARTS CHASER Gender Identity Female 08/26/2020 11:58 AM CDT Sexual Orientation Choose not to disclose 2020 11:58 AM CDT Travel History Travel Start Travel End [place] 03/29/2024 03/31/2024 documented as of this encounter Plan of Treatment Not on file documented as of this encounter Visit Diagnoses Not on filedocumented in this encounter Additional Health Concerns Assessment Noted Time PHQ-9 Depression Total Score: 1 10/30/19 21 7:05 AM CDT documented as of this encounter Care Teams Energy Manager Relationship Specialty Start Date End Date Yael Neville MD [address] [place] [address] [place] [address] PCP - General Internal Medicine 04/11/16 Yael Neville MD [address] [place] [address] [place] [address] Assigned PCP 06/13/16 03/22/24 Gabino Peña MD [address] [place] [address] Assigned Heart and Vascular Provider 02/21/20 07/03/21 Alison Yan PA-C [address] [place] [address] Assigned Sleep Provider 07/15/20 2 Emmy Vance Cnp, MARU EMBEDDED SOFTWARE PROGRAMMER [employer] [facility] [place] [address] [place] [address] Nurse Practitioner Nurse Practitioner 08/26/20 documented as of this encounter
--- OUTSIDE RECORDS SUMMARY | 2024-04-08 19:42 | XMS_ITS | Encounter Summary ---
Author Organization [facility] Address [address] [place] [address]. [place] [address] Care Team Providers Care Mineral Mixer Name Role Phone Yael Neville MD Primary Care Provider +[phone]- [phone] Yael Neville MD Unavailable [phone] Frank Morrow Unavailable Unavailable Saul Freire Unavailable [phone] Gabino Peña MD Unavailable [phone] Alison Yan PA-C Unavailable [phone] Emmy Vance Thermocouple Tester CLAY MIXER RESEARCH AND DEVELOPMENT ENGINEER Unavailable [phone]- [phone] Encounter Details Date Type Department Care Team (Late st Contact Info) Description 08/20/[address] [facility] Jacek [address] [facility] [address] [place] [phone] Yael Neville MD [address] [facility] [place] [address] Social History Tobacco Use Types Packs/Day Years Used Date Smoking Tobacco: Never Smokeless Tobacco: Never Alcohol Use Standard Drinks/Week Comments Yes 0 (1 standard drink = 0.6 oz pur e alcohol) PHQ-2 Answer Date Recorded PHQ-2 Score 0 08/06/2019 Comments No Sex and Gender Information Value Date Recorded Sex Assigned at Female 08/26/2020 11:58 AM CDT Legal Sex Female 3:37 AM DOPE WORKER Gender Identity Female 08/26/2020 11:58 AM CDT Sexual Orientation Choose not to disclose 2020 11:58 AM CDT Travel History Travel Start Travel End [place] 03/29/2024 03/31/2024 documented as of this encounter Miscellaneous Notes * Telephone Encounter - Yael Neville MD - 08/21/2019 6:08 PM CDT Done. In my outbox. See additional similar encounter. Yael Neville M.D. documented in this encounter Plan of Treatment Not on file documented as of this encounter Visit Diagnoses Not on filedocumented in this encounter Additional Health Concerns Infection Onset Date Last Indicated Resolved Time Rule Out COVID-19 01/14/2020 01/14/2020 01/15/2020 10:31 PM CDT Rule Out COVID-19 04/06/2020 04/06/2020 04/07/2020 10:32 AM DOPE WORKER Rule Out COVID-19 06/11/2020 06/11/2020 06/11/2020 7:00 PM DOPE WORKER Assessment Noted Time PHQ-9 Depression Total Score: 17 020 7:03 AM CDT documented as of this encounter Care Teams Mineral Mixer Relationship Specialty Start Date End Date Yael Neville MD [address] [place] [address] [place] [address] PCP - General Internal Medicine 04/11/16 Yael Neville MD [address] [place] [address] [place] [address] Assigned PCP 06/13/16 03/22/24 Frank Morrow Personal Advocate & Liaison (PAL) 03/11/19 11/03/19 Saul Freire LSW Clinic Loading Dock Hand Primary Care - CC 12/02/1903/20 Gabino Peañ MD [address] [place] [address] Assigned Heart and Vascular Provider 02/21/20 07/03/21 Alison Yan PA-C [address] [place] [address] Assigned Sleep Provider 07/15/20 2 Emmy Vance Cnp, MARU RESEARCH AND DEVELOPMENT ENGINEER [employer] [facility] [place] [address] [place] [address] Nurse Practitioner Nurse Practitioner 08/26/20 documented as of this encounter
--- OUTSIDE RECORDS SUMMARY | 2024-04-08 19:42 | XMS_ITS | Encounter Summary ---
Author Organization [facility] Address [address] [place] [address]. [place] [address] Care Team Providers Care Sales Engineer Account Manager Name Role Phone Yael Neville MD Primary Care Provider [phone]- [phone] Yael Neville MD Unavailable [phone] Gabino Peña MD Unavailable [phone] Alison YanC Unavailable + [phone] Emmy Vance Recreation Therapist HOG OPERATOR TANNING SALON ATTENDANT Unavailable [phone] Reason for Visit * Reason Onset Date Comments Refill Request 06/23/2020 ipratropium (ATR OVENT) 0.06 % nasal spray Encounter Details Date Type Department Care Team (Late st Contact Info) Description 06/23/2020 Refill [facility] Jacek [address] [place] [address] [address] [place] [address] [place] [address] [place] [address] [place] [address] Refill Request (ipratropium (ATROVENT) 0.06 % nasal spray) Social History Tobacco Use Types Packs/Day Years [...] AM CDT Legal Sex Female 3:37 AM LIFE SCIENCE TECHNICAL OFFICER Gender Identity Female 08/26/2020 11:58 AM CDT Sexual Orientation Choose not to disclose 2020 11:58 AM CDT Travel History Travel Start Travel End [place] 03/29/2024 03/31/2024 COVID-19 Exposure Response Date Recorded In the last month, have you been in contact with someone who was confirmed or suspected to have Coronavirus / COVID-19? Unable to assess 06/11/2020 11:40 AM LIFE SCIENCE TECHNICAL OFFICER documented as of this encounter Miscellaneous Notes * Telephone Encounter - Yesi Best RN - 06/24/2020 12:52 PM CST Medication refilled per [facility] protocol Yesi Best RN SCIENCE TECHNICAL OFFICER documented in this encounter Plan of Treatment Not on file documented as of this encounter Visit Diagnoses Diagnosis Suspected COVID-19 virus infection documented in this encounter Additional Health Concerns Assessment Noted Time PHQ-9 Depression Total Score: 16 020 8:26 AM CDT documented as of this encounter Care Teams Sales Engineer Account Manager Relationship Specialty Start Date End Date Yael Neville MD [address] [place] [address] [place] [address] PCP - General Internal Medicine 04/11/16 Yael Neville MD [address] [place] [address] [place] [address] Assigned PCP 06/13/16 03/22/24 Gabino Peña MD [address] [place] [address] Assigned Heart and Vascular Provider 02/21/20 07/03/21 Alison Yan PA-C [address] [facility] [address] [place] [address] Assigned Sleep Provider 07/15/20 2 Emmy Vance Cnp, MARU DOWNS [employer] [facility] [place] [address] [place] [address] Nurse Practitioner Nurse Practitioner 08/26/20 documented as of this encounter
--- OUTSIDE RECORDS SUMMARY | 2024-04-08 19:42 | XMS_ITS | Encounter Summary ---
Author Organization [facility] Address [address] [place] [address]. [place] [address] Care Team Providers Care Nocturnist Physician Name Role Phone Yael Neville MD Primary Care Provider [phone]- [phone] Yael Neville MD Unavailable [phone] Frank Morrow Unavailable Unavailable Saul Freire Unavailable [phone] Gabino Peña MD Unavailable [phone] Alison Yan PA-C Unavailable [phone] Emmy Vance Cnp MANAGER BUSINESS MANAGEMENT CAD DESIGNER DRAFTER Unavailable [phone] Encounter Details Date Type Department Care Team (Latest Contact Info) Description 08/06/2019 Historic Results Social History Tobacco Use Types Packs/Day Years Used Date Smoking Tobacco: Never Smokeless Tobacco: Never Alcohol Use Standard Drinks/Week Comments Yes 0 (1 standard drink = 0.6 oz pur e alcohol) PHQ-2 Answer Date Recorded PHQ-2 Score 0 08/06/2019 Comments No Sex and Gender Information Value Date Recorded Sex Assigned at Female 08/26/2020 11:58 AM CDT Legal Sex Female 3:37 AM PHOTOGRAPHIC PROCESS ATTENDANT Gender Identity Female 08/26/2020 11:58 AM CDT [...] Out COVID-19 04/06/2020 04/06/2020 04/07/2020 10:32 AM PHOTOGRAPHIC PROCESS ATTENDANT Rule Out COVID-19 06/11/2020 06/11/2020 06/11/2020 7:00 PM PHOTOGRAPHIC PROCESS ATTENDANT Assessment Noted Time PHQ-9 Depression Total Score: 17 020 7:03 AM CDT documented as of this encounter Care Teams Nocturnist Physician Relationship Specialty Start Date End Date Yael Neville MD [address] [place] [address] [place] [address] PCP - General Internal Medicine 04/11/16 Yael Neville MD [address] [place] [address] [place] [address] Assigned PCP 06/13/16 03/22/24 Frank Morrow Personal Advocate & Liaison (PAL) 03/11/19 11/03/19 Saul Freire LSW Clinic Coil Inspector Primary Care - CC 12/02/1903/20 Gabino Peña MD [address] [place] [address] Assigned Heart and Vascular Provider 02/21/20 07/03/21 Alison Yan PA-C [address] [place] [address] Assigned Sleep Provider 07/15/20 2 Emmy Vance Water System Operator, MANAGER BUSINESS MANAGEMENT CAD DESIGNER DRAFTER [employer] [facility] [place] [address] [place], [place] [address] [phone] Nurse Practitioner Nurse Practitioner 08/26/20 documented as of this encounter
--- OUTSIDE RECORDS SUMMARY | 2024-04-08 19:42 | XMS_ITS | Encounter Summary ---
Author Organization [facility] Address [address] [place] [address]. [place] [address] Care Team Providers Care Awning Hanger Name Role Phone Yael Neville MD Primary Care Provider [phone]- [phone] Yael Neville MD Unavailable [phone] Emmy Vance Drill Operator ACCOUNTING COORDINATOR MAINTENANCE GROUNDMAN Unavailable [phone] Encounter Details Date Type Department Care Team (Late st Contact Info) Description 05/14/2022 MyC Medical Advice [facility] Jacek [address] [place] [address] Yael Neville MD [address] [facility] [place] [address] Social History Tobacco Use [...] AM CDT Legal Sex Female 3:37 AM GUEST SPECIALIST Gender Identity Female 08/26/2020 11:58 AM CDT Sexual Orientation Choose not to disclose 2020 11:58 AM CDT Travel History Travel Start Travel End [place] 03/29/2024 03/31/2024 documented as of this encounter Plan of Treatment Not on file documented as of this encounter Visit Diagnoses Not on filedocumented in this encounter Additional Health Concerns Assessment Noted Time PHQ-9 Depression Total Score: 1 10/30/19 21 7:05 AM CDT documented as of this encounter Care Teams Awning Hanger Relationship Specialty Start Date End Date Yael Neville MD [address] [place] [address] [place] [address] PCP - General Internal Medicine 04/11/16 Yael Neville MD [address] [place] [address] [place] [address] Assigned PCP 06/13/16 03/22/24 Emmy Vance Cnp, MARU DOWNS [facility] [place] [address], [place] [address] Nurse Practitioner Nurse Practitioner 08/26/20 documented as of this encounter
--- OUTSIDE RECORDS SUMMARY | 2024-04-08 19:42 | XMS_ITS | Encounter Summary ---
Author Organization [facility] Address [address] [place] [address]. [place] [address] Care Team Providers Care Business Unit Controller Name Role Phone Yael Neville MD Primary Care Provider [phone]- [phone] Yael Neville MD Unavailable [phone] Gabino Peña MD Unavailable [phone] Alison Yan PA-C Unavailable [phone] Emmy Vance Java Support Engineer SUPERVISOR WEBBING MIDDLEWARE CONSULTANT Unavailable [phone]- [phone] Encounter Details Date Type Department Care Team (Late st Contact Info) Description 12/11/2020 Orders Only [facility] Jacek [address] [place] [phone] Yael Neville MD [address] [place] [address] [place] [address] Social History Tobacco Use [...] AM CDT Legal Sex Female 3:37 AM REAL ESTATE REPRESENTATIVE Gender Identity Female 08/26/2020 11:58 AM CDT Sexual Orientation Choose not to disclose 2020 11:58 AM CDT Travel History Travel Start Travel End [place] 03/29/2024 03/31/2024 documented as of this encounter Plan of Treatment Not on file documented as of this encounter Visit Diagnoses Not on filedocumented in this encounter Additional Health Concerns Assessment Noted Time PHQ-9 Depression Total Score: 1 10/30/19 21 7:05 AM CDT documented as of this encounter Care Teams Business Unit Controller Relationship Specialty Start Date End Date Yael Neville MD [address] [place] [address] [place] [address] PCP - General Internal Medicine 04/11/16 Yael Neville MD [address] [place] [address] [place] [address] Assigned PCP 06/13/16 03/22/24 Gabino Peña MD [address] [place] [address] Assigned Heart and Vascular Provider 02/21/20 07/03/21 Alison Yan PA-C [address] [place] [address] Assigned Sleep Provider 07/15/20 2 Emmy Vance Java Support Engineer, SUPERVISOR WEBBING MIDDLEWARE CONSULTANT [employer] [facility] [place] [address] [place] [address] Nurse Practitioner Nurse Practitioner 08/26/20 documented as of this encounter
--- OUTSIDE RECORDS SUMMARY | 2024-04-08 19:42 | XMS_ITS | Encounter Summary ---
Author Organization [facility] Address [address] [place] [address]. [place] [address] Care Team Providers Care Building Cleaning Supervisor Name Role Phone Yael Neville MD Primary Care Provider [phone]- [phone] Yael Neville MD Unavailable [phone] Gabino Peña MD Unavailable [phone] Alison Yan PA-C Unavailable + [phone] Emmy Vance Manager Of Medical CUPOLA OPERATOR TRANSCRIPTER Unavailable [phone] Encounter Details Date Type Department Care Team (Late st Contact Info) Description 07/22/2020 MyC Medical Advice [address] [place] [id number] Mikki Gonzalez Social History Tobacco Use Types Packs/Day Years [...] AM CDT Legal Sex Female 3:37 AM PHP WEB DEVELOPER Gender Identity Female 08/26/2020 11:58 AM CDT [...] documented as of this encounter Care Teams Building Cleaning Supervisor Relationship Specialty Start Date End Date Yael Neville MD [address] [place] [address] [place] [address] PCP - General Internal Medicine 04/11/16 Yael Neville MD [address] [place] [address] [place] [address] Assigned PCP 06/13/16 03/22/24 Gabino Peña MD [address] [place] [address] Assigned Heart and Vascular Provider 02/21/20 07/03/21 Alison Yan PA-C [address] [place] [address] Assigned Sleep Provider 07/15/20 2 Emmy Vance Cnp, MARU TRANSCRIPTER [employer] [facility] [place] [address] [place] [address] Nurse Practitioner Nurse Practitioner 08/26/20 documented as of this encounter
--- OUTSIDE RECORDS SUMMARY | 2024-04-08 19:42 | XMS_ITS | Encounter Summary ---
Author Organization [facility] Address [address] [place] [address]. [place] [address] Care Team Providers Care Aerophysics Engineer Name Role Phone Yael Neville MD Primary Care Provider [phone]- [phone] Yael Neville MD Unavailable [phone] Gabino Peña MD Unavailable [phone] Alison YanC Unavailable [phone] Emmy Vance Boring Mill Set Up Operator Vertical CUSTOMER PRICING MANAGER MECHANISM INSPECTOR Unavailable [phone]- [phone] Encounter Details Date Type Department Care Team (Late st Contact Info) Description 07/21/2020 [facility] [address] [facility] [address] [place] [phone] Yael Neville MD [address] [place] [address] [place] [address] Social History Tobacco Use [...] AM CDT Legal Sex Female 3:37 AM ASSOCIATE PROFESSOR OF RADIOLOGY Gender Identity Female 08/26/2020 11:58 AM CDT Sexual Orientation Choose not to disclose 2020 11:58 AM CDT Travel History Travel Start Travel End [place] 03/29/2024 03/31/2024 documented as of this encounter Plan of Treatment Not on file documented as of this encounter Visit Diagnoses Not on filedocumented in this encounter Additional Health Concerns Assessment Noted Time PHQ-9 Depression Total Score: 16 020 8:26 AM CDT documented as of this encounter Care Teams Aerophysics Engineer Relationship Specialty Start Date End Date Yael Neville MD [address] [place] [address] [place] [address] PCP - General Internal Medicine 04/11/16 Yael Neville MD [address] [place] [address] [place] [address] Assigned PCP 06/13/16 03/22/24 Gabino Peña MD [address] [place] [address] Assigned Heart and Vascular Provider 02/21/20 07/03/21 Alison Yan PA-C [address] [place] [address] Assigned Sleep Provider 07/15/20 2 Emmy Vance Boring Mill Set Up Operator Vertical, MARU MECHANISM INSPECTOR [employer] [facility] [place] [address] [place] [address] Nurse Practitioner Nurse Practitioner 08/26/20 documented as of this encounter
--- OUTSIDE RECORDS SUMMARY | 2024-04-08 19:42 | XMS_ITS | Encounter Summary ---
Author Organization [facility] Address [address] [place] [address]. [place] [address] Care Team Providers Care Telecommunications Project Manager Name Role Phone Yael Neville MD Primary Care Provider [phone]- [phone] Yael Neville MD Unavailable [phone] Emmy Vance Deliverer Outside DENTAL HYGIENIST MOBILE COORDINATOR COUNTRY SALES MANAGER Unavailable + [phone] Encounter Details Date Type Department Care Team (Late st Contact Info) Description 07/28/2021 MyC Medical Advice [address] [address] Keya Jamison RN Social History Tobacco Use Types Packs/Day Years [...] AM CDT Legal Sex Female 3:37 AM WRIST HEMMER Gender Identity Female 08/26/2020 11:58 AM CDT Sexual Orientation Choose not to disclose 2020 11:58 AM CDT Travel History Travel Start Travel End [place] 03/29/2024 03/31/2024 documented as of this encounter Plan of Treatment Not on file documented as of this encounter Visit Diagnoses Not on filedocumented in this encounter Additional Health Concerns Assessment Noted Time PHQ-9 Depression Total Score: 1 10/30/19 21 7:05 AM CDT documented as of this encounter Care Teams Telecommunications Project Manager Relationship Specialty Start Date End Date Yael Neville MD [address] [place] [place] [address] [place] [address] PCP - General Internal Medicine 04/11/16 Yael Neville MD [address] [place] [address] [place] [address] Assigned PCP 06/13/16 03/22/24 Emmy Vance Cnp, MARU DOWNS [employer] [facility] [place] [address] [place] [address] Nurse Practitioner Nurse Practitioner 08/26/20 documented as of this encounter
--- OUTSIDE RECORDS SUMMARY | 2024-04-08 19:42 | XMS_ITS | Encounter Summary ---
Author Organization [facility] Address [address] [place] [address]. [place] [address] Care Team Providers Care Photo Equipment Technician Name Role Phone Yael Neville MD Primary Care Provider [phone] Yael Neville MD Unavailable Frank Morrow Unavailable Unavailable Saul Freire Unavailable [phone] Gabino Peña MD Unavailable [phone] Alison Yan PA-C Unavailable [phone] Emmy Vance Compliance Officer PEDIATRIC SPORTS MEDICINE SPECIALIST PURSE SEINER Unavailable [phone] Reason for Visit * Reason Onset Date Comments Refill Request 07/19/2018 Encounter Details Date Type Department Care Team (Late st Contact Info) Description 07/19/2018 MyC Refill M [facility] Jacek [address] [place] [address] Drive [address] [place] [phone] Yael Neville MD [address] [place] [address] [place] [address] Refill Request Social History Tobacco Use Types Packs/Day Years Used Date Smoking Tobacco: Never Smokeless Tobacco: Never Alcohol Use Standard Drinks/Week Comments Yes 0 (1 standard drink = 0.6 oz pur e alcohol) PHQ-2 Answer Date Recorded PHQ-2 Score 2 05/08/2018 Comments No Sex and Gender Information Value Date Recorded Sex Assigned at Female 08/26/2020 11:58 AM CDT Legal Sex Female 3:37 AM PRODUCTION INTERN Gender Identity Female 08/26/2020 11:58 AM CDT Sexual Orientation Choose not to disclose 2020 11:58 AM CDT Travel History Travel Start Travel End [place] 03/29/2024 03/31/2024 documented as of this encounter Plan of Treatment Not on file documented as of this encounter Visit Diagnoses Diagnosis 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 Polycystic ovaries documented in this encounter Additional Health Concerns Infection Onset Date Last Indicated Resolved Time Rule Out COVID-19 01/14/2020 01/14/2020 01/15/2020 10:31 PM CDT Rule Out COVID-19 04/06/2020 04/06/2020 04/07/2020 10:32 AM PRODUCTION INTERN Rule Out COVID-19 06/11/2020 06/11/2020 06/11/2020 7:00 PM PRODUCTION INTERN Assessment Noted Time PHQ-9 Depression Total Score: 17 019 11:09 AM PRODUCTION INTERN documented as of this encounter Care Teams Photo Equipment Technician Relationship Specialty Start Date End Date Yael Neville MD [address] [facility] [place] [address] PCP - General Internal Medicine 04/11/16 Yael Neville MD [facility] [place] [address] Assigned PCP 06/13/16 03/22/24 Frank Morrow Personal Advocate & Liaison (PAL) 03/11/19 11/03/19 Saul Freire LSW Clinic Plater Hot Dip Primary Care - CC 12/02/1903/20 Gabino Peña MD [address] [place] [address] Assigned Heart and Vascular Provider 02/21/20 07/03/21 Alison Yan PA-C [address] [facility] [address] [place] [address] Assigned Sleep Provider 07/15/20 2 Emmy Vance Cnp, APRN CNP [employer] [place] [address] [place] [address] Nurse Practitioner Nurse Practitioner 08/26/20 documented as of this encounter
--- OUTSIDE RECORDS SUMMARY | 2024-04-08 19:42 | XMS_ITS | Encounter Summary ---
Author Organization [facility] Address [address] [place] [address]. [place] [address] Care Team Providers Care Prosthetics Assistant Name Role Phone Yael Neville MD Primary Care Provider [phone] Yael Neville MD Unavailable Frank Morrow Unavailable Unavailable Saul Freire Unavailable [phone] Gabino Peña MD Unavailable [phone] Alison Yan PA-C Unavailable [phone] Emmy Vance Valve Grinder MEDICAL COLLECTIONS SPECIALIST FRIED CAKE MAKER Unavailable [phone] Reason for Visit * Reason Comments Medication Refill Encounter Details Date Type Department Care Team (Late st Contact Info) Description 09/07/2019 Refill [facility] Jacek [address] [place] [address] Drive [address] [place] [phone] Yael Neville MD [address] [place] [address] [place] [address] Medication Refill Social History [...] AM CDT Legal Sex Female 3:37 AM COMMISSIONING AGENT Gender Identity Female 08/26/2020 11:58 AM CDT Sexual Orientation Choose not to disclose 2020 11:58 AM CDT Travel History Travel Start Travel End [place] 03/29/2024 03/31/2024 COVID-19 Exposure Response Date Recorded In the last month, have you been in contact with someone who was confirmed or suspected to have Coronavirus / COVID-19? No / Unsure 09/10/2019 9:26 AM CDT documented as of this encounter Miscellaneous Notes * Telephone Encounter - Liyah Meza RN - 09/09/2019 2:29 PM CDT Prescription approved per [facility], [facility] or [facility] refill protocol. Liyah Centeno - Registered Nurse [facility] documented in this encounter Plan of Treatment Not on file documented as of this encounter Visit Diagnoses Diagnosis 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 Polycystic ovaries documented in this encounter Additional Health Concerns Infection Onset Date Last Indicated Resolved Time Rule Out COVID-19 01/14/2020 01/14/2020 01/15/2020 10:31 PM CDT Rule Out COVID-19 04/06/2020 04/06/2020 04/07/2020 10:32 AM COMMISSIONING AGENT Rule Out COVID-19 06/11/2020 06/11/2020 06/11/2020 7:00 PM COMMISSIONING AGENT Assessment Noted Time PHQ-9 Depression Total Score: 17 020 7:03 AM CDT documented as of this encounter Care Teams Prosthetics Assistant Relationship Specialty Start Date End Date Yael Neville MD [address] [place] [address] [place] [address] PCP - General Internal Medicine 04/11/16 Yael Neville MD [address] [place] [address] [place] [address] Assigned PCP 06/13/16 03/22/24 Frank Morrow Personal Advocate & Liaison (PAL) 03/11/19 11/03/19 Saul Freire LSW Clinic Blast Furnace Supervisor Primary Care - CC 12/02/1903/20 Gabino Peña MD [address] [place] [id number] Assigned Heart and Vascular Provider 02/21/20 07/03/21 Alison Yan PA-C [address] [place] [id number] Assigned Sleep Provider 07/15/20 2 Emmy Vance Cnp, MARU FRIED CAKE MAKER [employer] [place] [address] [place] [address] Nurse Practitioner Nurse Practitioner 08/26/20 documented as of this encounter
--- OUTSIDE RECORDS SUMMARY | 2024-04-08 19:42 | XMS_ITS | Encounter Summary ---
Author Organization [facility] Address [address] [place] [address]. [place] [address] Care Team Providers Care Radiochemical Technician Name Role Phone Yael Neville MD Primary Care Provider [phone] Yael Neville MD Primary Care Provider [phone] Yael Neville MD Unavailable [phone] Yael Neville MD Unavailable Frank Morrow Unavailable Unavailable Saul Freire Unavailable [phone] Gabino Peña MD Unavailable [phone] Alison Yan PA-C Unavailable [phone] Emmy Vance Deli Associate SITE DAMAGE PREVENTION TECHNICIAN TABLEAU ARCHITECT Unavailable [phone] Reason for Visit * Reason Onset Date Comments Refill Request 01/19/2015 ESCITALOPRAM 5MG Encounter Details Date Type Department Care Team (Late st Contact Info) Description 01/17/2015 Refill [facility] Jacek [address] [facility] [place] [address] Yael Neville MD [address] [facility] [place] [address] Refill Request (ESCITALOPRAM 5MG) Social History Tobacco Use Types Packs/Day Years Used Date Smoking Tobacco: Never Smokeless Tobacco: Never Alcohol Use Standard Drinks/Week Comments No 0 (1 standard drink = 0.6 oz pur e alcohol) Comments No Sex and Gender Information Value Date Recorded Sex Assigned at Female 08/26/2020 11:58 AM CDT Legal Sex Female 3:37 AM OXYGEN THERAPIST Gender Identity Female 08/26/2020 11:58 AM CDT Sexual Orientation Choose not to disclose 2020 11:58 AM CDT Travel History Travel Start Travel End [place] 03/29/2024 03/31/2024 documented as of this encounter Miscellaneous Notes * Telephone Encounter - Sandy Deleon LPN - 01/21/2015 4:25 PM CDT Called and talked with Mom, Amirah and Daysi had run out of pills and pharmacy's system was down and so they will warehouse order picker pills soon. [facility] will call us back to do PHQ 9 soon. Sandy Deleon LPN * Telephone Encounter - Lucero Vincent - 01/20/2015 10:53 AM CDT Escitalopram for anxiety. Depression on problem list. Needs phq9 or f/u visit to 11-04-14 appointment. Can you call her please? Medication is being filled for 1 time refill only due to: as above. Lucero Vincent RN * Telephone Encounter - Leslie Serra - 01/19/2015 8:09 AM CDT ESCITALOPRAM 5MG Last Written Prescription Date: 11/04/2014 Last Fill Quantity: 30, # refills: 1 Last Office Visit with [facility] primary care provider: 11/04/2014 Last PHQ-9 score on record= PHQ-9 SCORE 11/04/2014 Total Score 8 documented in this encounter Plan of Treatment Not on file documented as of this encounter Visit Diagnoses Diagnosis LINDA (generalised anxiety disorder)- Primary Generalized anxiety disorder documented in this encounter Additional Health Concerns Infection Onset Date Last Indicated Resolved Time Rule Out COVID-19 01/14/2020 01/14/2020 01/15/2020 10:31 PM CDT Rule Out COVID-19 04/06/2020 04/06/2020 04/07/2020 10:32 AM OXYGEN THERAPIST Rule Out COVID-19 06/11/2020 06/11/2020 06/11/2020 7:00 PM OXYGEN THERAPIST documented as of this encounter Care Teams Radiochemical Technician Relationship Specialty Start Date End Date Yael Neville MD [address] [place] [address] [place] [address] PCP - General Internal Medicine 06/12/12 03/28/16 Yael Neville MD [address] [place] [address] [place] [address] PCP - General Internal Medicine 04/11/16 Yael Neville MD [address] [place] [address] [place] [address] PCP - Assigned PCP 06/13/16 07/03/18 Yael Neville MD [address] [place] [address] [place] [address] Assigned PCP 06/13/16 03/22/24 Frank Morrow Personal Advocate & Liaison (PAL) 03/11/19 11/03/19 Saul Freire LSW Clinic Slurry Man Primary Care - CC 12/02/1903/20 Gabino Peña MD [address] [place] [address] Assigned Heart and Vascular Provider 02/21/20 07/03/21 Alison Yan PA-C [address] [facility] [address] [place] [address] Assigned Sleep Provider 07/15/20 2 Emmy Vance Cnp, MARU DOWNS [employer] [place] [address] [place] [address] Nurse Practitioner Nurse Practitioner 08/26/20 documented as of this encounter
--- OUTSIDE RECORDS SUMMARY | 2024-04-08 19:42 | XMS_ITS | Encounter Summary ---
Author Organization [facility] Address [address] [place] [address]. [place] [address] Care Team Providers Care Foil Stamp Operator Name Role Phone Yael Neville MD Primary Care Provider [phone] Yael Neville MD Unavailable Frank Morrow Unavailable Unavailable Saul Freire Unavailable [phone] Gabino Peña MD Unavailable [phone] Alison Yan PA-C Unavailable [phone] Emmy Vance Patient Scheduling Manager ROOMING HOUSE OPERATOR MANAGER [place] Unavailable [phone] Reason for Visit * Reason Onset Date Comments Refill Request 02/01/2019 Encounter Details Date Type Department Care Team (Late st Contact Info) Description 02/01/2019 Refill [facility] Jacek [address] [place] [address] Drive [address] [place] [address] Yael Neville MD [address] [place] [address] [place] [address] Refill Request Social History [...] AM CDT Legal Sex Female 3:37 AM BIODIESEL PRODUCTION TECHNICIAN Gender Identity Female 08/26/2020 11:58 AM CDT Sexual Orientation Choose not to disclose 2020 11:58 AM CDT Travel History Travel Start Travel End [place] 03/29/2024 03/31/2024 documented as of this encounter Miscellaneous Notes * Telephone Encounter - Kimmy Vernon, RN - 02/01/2019 12:31 PM CDT This medication was ordered 2 months ago with diagnosis of viral illness. Routing to provider to advise on refilling medication. Sophie YOO, RN documented in this encounter Plan of Treatment Not on file documented as of this encounter Visit Diagnoses Diagnosis Viral illness Unspecified viral infection, in conditions classified elsewhere and of unspecified site documented in this encounter Additional Health Concerns Infection Onset Date Last Indicated Resolved Time Rule Out COVID-19 01/14/2020 01/14/2020 01/15/2020 10:31 PM CDT Rule Out COVID-19 04/06/2020 04/06/2020 04/07/2020 10:32 AM BIODIESEL PRODUCTION TECHNICIAN Rule Out COVID-19 06/11/2020 06/11/2020 06/11/2020 7:00 PM BIODIESEL PRODUCTION TECHNICIAN Assessment Noted Time PHQ-9 Depression Total Score: 17 019 11:09 AM BIODIESEL PRODUCTION TECHNICIAN documented as of this encounter Care Teams Foil Stamp Operator Relationship Specialty Start Date End Date Yael Neville MD [address] [place] [address] [place] [address] PCP - General Internal Medicine 04/11/16 Yael Neville MD [address] [place] [address] [place] [address] Assigned PCP 06/13/16 03/22/24 Frank Morrow Personal Advocate & Liaison (PAL) 03/11/19 11/03/19 Saul FreireIRMA Clinic Pilot Boat Deckhand Primary Care - CC 12/02/1903/20 Gabino Peña MD [address] [place] [address] Assigned Heart and Vascular Provider 02/21/20 07/03/21 Alison Yan PA-C [address] [place] [address] Assigned Sleep Provider 07/15/20 2 Emmy Vance Cnp, APRN CNP [employer] [place] [address] [place] [address] Nurse Practitioner Nurse Practitioner 08/26/20 documented as of this encounter
--- OUTSIDE RECORDS SUMMARY | 2024-04-08 19:42 | XMS_ITS | Encounter Summary ---
Author Organization [place] Address [address] [place] [address]. [place] [address] Care Team Providers Care Lead Cargo Mover Name Role Phone Yael Neville MD Primary Care Provider Emmy Vance Group Burner Machine HYDROMETEOROLOGIST ENVIRONMENTAL CONFLICT MANAGER Unavailable [phone] Reason for Visit * Reason Comments Pharyngitis Encounter Details Date Type Department Care Team (Late st Contact Info) Description 04/05/2024 4:55 AM COMMUNICATIONS ENGINEERING TECHNICIAN - 04/05/2024 5:54 AM COMMUNICATIONS ENGINEERING TECHNICIAN Emergency [facility] Emergency Dept [address] [place] [address] Juan Mares MD [facility] [address] [place] [address] Sore throat; Acute cough Discharge Disposition: Home or Self Care Social History Tobacco Use Types Packs/Day Years [...] AM CDT Legal Sex Female 3:37 AM COMMUNICATIONS ENGINEERING TECHNICIAN Gender Identity Female 08/26/2020 11:58 AM CDT Sexual Orientation Choose not to disclose 2020 11:58 AM CDT Travel History Travel Start Travel End [place] 03/29/2024 03/31/2024 documented as of this encounter Last Filed Vital Signs Vital Sign Reading Time Taken Comments Blood Pressure 122/81 04/05/2024 4:49 AM COMMUNICATIONS ENGINEERING TECHNICIAN Pulse 98 04/05/2024 4:49 AM COMMUNICATIONS ENGINEERING TECHNICIAN Temperature 36.9 C (98.4 F) 04/05/2024 4:49 AM COMMUNICATIONS ENGINEERING TECHNICIAN Respiratory Rate 20 04/05/2024 4:49 AM COMMUNICATIONS ENGINEERING TECHNICIAN Oxygen Saturation 99% 04/05/2024 4:49 AM COMMUNICATIONS ENGINEERING TECHNICIAN Inhaled Oxygen Concentration - - Weight 95.4 kg (210 lb 5.1 oz) 04/05/2024 4:49 A M COMMUNICATIONS ENGINEERING TECHNICIAN Height 167.6 cm (5' 6) 04/05/2024 4:49 AM COMMUNICATIONS ENGINEERING TECHNICIAN Body Mass Index 33.95 04/05/2024 4:49 AM COMMUNICATIONS ENGINEERING TECHNICIAN documented in this encounter Discharge Instructions * Discharge Instructions* Juan Mares MD - 04/05/2024 5:47 AM COMMUNICATIONS ENGINEERING TECHNICIAN Natural, -Safe Remedies Before you try any medications, there are natural remedies you may find adequate relief from first.Here are a couple of safe, natural remedies to try: Gargle warm salt water Get as much restful sleep as possible Sip honey in hot water Stay well hydrated Use nasal saline sprays Try a humidifier While not all herbs and supplements are safe in . You may be able to safely take: Vitamin C Zinc Manuka Honey Elderberry Talk with your doctor or executive assistant before taking any supplements or trying at-home remedies or essential oils during . If natural remedies don???t provide enough relief, consider these -safe medications. -Safe Cold & Flu Medication It is best to avoid taking medications when possible. If you do need to take something, follow the package directions carefully. Talk with your doctor or executive assistant before taking medication during . These [id number] medications are considered safe for most patients: Acetaminophen (Tylenol) Safe during the entire . Take only as needed. Try to limit regular exposure. Not safe if you are allergic to it or have liver problems. Pseudoephedrine (Sudafed) Safe in the second and third trimester Not safe in the first trimester due to a small risk of abdominal wall defects Not safe if you have high blood pressure (hypertension) or a history of heart disease Chlorpheniramine (Chlor-Trimeton) Safe during . Not safe while . Diphenhydramine (Benadryl) Safe throughout . Watch out for extra ingredients. Many cold and flu medications treat more symptoms than you may be experiencing. For example, Tylenol Cold Multi-Symptom treats headaches, fever, body aches, cough, chest congestion, stuffy nose, and more. If you just have a stuffy nose, this is more medication than you need. A word about antibiotics. Some sinus infections are treated with antibiotics. In general, patients should not take antibiotics unless it is necessary. Make sure your health care provider knows you are if they prescribe antibiotics. UNICATIONS ENGINEERING TECHNICIAN * Attachments The following attachments cannot be sent through Care Everywhere. * Cough (Cook Islander) * Sore Throat ([place] Islander) * Sore Throat: Here's Help: Video ([place] Islander) documented in this encounter Medications at Time of Discharge buPROPion (WELLBUTRIN XL) 300 MG 24 hr tablet Take 300 mg by mouth daily 08/04/2020 guaiFENesin 1200 MG [id number]:S uspected COVID-19 virus infection Take 1 tablet (1,200 mg) by mouth 2 times daily 60 tablet 02/22/2021 ipratropium (ATROVENT) 0.06 % nasal sprayIndications: Suspected COVID-19 virus infection [place] 2 sprays in nostril 4 times daily 15 mL 1 02/22/2021 lamoTRIgine (LAMICTAL) 200 MG tablet Take 200 mg by mouth At Bedtime 08/15/2020 metFORMIN (GLUCOPHAGE XR) 500 MG 24 hr tabletIndications :PCOS (polycystic ovarian syndrome) TAKE 2 TABLETS BY MOUTH EVERY EVENING WITH DINNER 180 tablet 10/28/2021 propranolol (INDERAL) 20 MG tablet Take 1 tablet (20 mg) by mouth 2 times daily 10/28/2020 SUMAtriptan (IMITREX) 100 MG tablet TK 1 T PO AOS OF HEADACHE. MAY REPEAT IN 2 H PRN 01/01/2020 documented as of this encounter ED Notes * Juan Mares MD - 04/05/2024 4:57 AM CST Emergency Department Note History of Present Illness Chief Complaint Pharyngitis HPI Daysi Heck is a 28 year old female, currently 22 weeks , with history of PCOS who presents to the ED for evaluation of pharyngitis. Patient presents with 2 days of productive cough and pharyngitis. Daysi states she is bringing up green phlegm. She felt feverish last night and wokeup in a cold sweat. Patient took Tylenol earlier this morning around 0030. Endorses some shortness of breath and reports she feels like there are shards of glass in her back when she coughs. Notes nausea no vomiting. Denies history of asthma or previous breathing problems. Daysi reports she has been around an ill 12-week old. No complications during current . Independent Historian None Past Medical History Medical History and Problem List PCOS Moderate major depression LINDA Prolonged QT interval Colitis Hirsutism Insulin resistance Secondary amenorrhea Medications Wellbutrin Atrovent Lamictal Glucophage Inderal Imitrex Surgical History Bilateral mammoplasty reduction Physical Exam Patient Vitals for the past 24 hrs: BP Temp Temp src Pulse Resp SpO2 Height Weight 04/05/24 0449 122/81 98.4 ??F (36.9 ??C) Oral 98 20 99 % 1.676 m (5' 6) 95.4 kg (210 lb 5.1 oz) Physical Exam General: Patient is awake, alert Head: The scalp, face, and head appear normal Eyes: The pupils are equal, round, and reactive to light. Conjunctivae and sclerae are normal ENT: External acoustic canals are normal. The oropharynx is normal without erythema. Uvula is in the midline Neck: Normal range of motion. CV: Regular rate and rhythm. Resp: Lungs are clear without wheezes or rales. No respiratory distress. GI: Abdomen is soft, no rigidity, guarding, or rebound. No distension. No tenderness to palpation in any quadrant. MS: Normal tone. Joints grossly normal without effusions. No asymmetric leg swelling, calf or thightenderness. Skin: No rash or lesions noted. Normal capillary refill noted Neuro: Speech is normal and fluent. Face is symmetric. Moving all extremities. Psych: Normal affect. Appropriate interactions. Diagnostics Lab Results Labs Ordered and Resulted from Time of ED Arrival to Time of ED Departure INFLUENZA A/B, RSV AND SARS-COV2 PCR - Normal Result Value Influenza A PCR Negative Influenza B PCR Negative RSV PCR Negative SARS CoV2 PCR Negative GROUP A STREPTOCOCCUS PCR THROAT SWAB - Normal Group A strep by PCR Not Detected Imaging No orders to display Independent Interpretation None ED Course Medications Administered Medications - No data to display Procedures Procedures Discussion of Management None ED Course ED Course as of 04/05/24 0639 MonApr 05, 2024 0504 I obtained history and examined the patient as noted above. Additional Documentation None Medical Decision Making / Diagnosis [facility] Diagnoses: None MIPS None [facility] Daysi Heck is a 28 year old female who presents for evaluation of sore throat, cough and cold sweats. On initial evaluation here she is hemodynamically stable with normal vital signs. She isafebrile and oxygenating well on room air. Lungs are clear bilaterally on exam. COVID, influenza and RSV testing negative. Strep testing negative. Given that the patient is otherwise hemodynamically s table without significant hypoxia, I do not believe that the patient requires admission here today.They are at risk for pneumonia but no signs of this are detected on today's visit. Given that the patient is not febrile nor hypoxic and has a clear lung exam, I felt the risks of x-ray outweighed the benefits and a 22-week woman. However we did discuss reasons to return to the emergency department and early signs of pneumonia. Return to the ED for high fevers > 103 for more than 48 hours more, increasing productive cough, shortness of breath, or confusion. There is no signs of serious bacterial infection such as bacteremia, meningitis, UTI/pyelonephritis, strep pharyngitis, etc. I discussed my findings and plan with the patient and they are amenable at this time. All questions were answered and patient will be discharged home in stable condition. Disposition The patient was discharged. Diagnosis ICD-10-CM 1. Sore throat J02.9 2. Acute cough R05.1 Scribe Disclosure: Tito, Lilia Yeh, am serving as a scribe at 4:59 AM on 04/05/2024 to document services personallyperformed by Juan Mares MD based on my observations and the provider's statements to me. Juan Mares MD 04/05/24 0639 UNICATIONS ENGINEERING TECHNICIAN * Eva Ya RN - 04/05/2024 4:51 AM CST Presents with c/o cough and sore throat for 2 days. Unsure if she has had fever. Took apap at midnight. 22 weeks . No n/v/d or abdominal pain UNICATIONS ENGINEERING TECHNICIAN documented in this encounter Plan of Treatment Not on file documented as of this encounter Procedures Procedure Name Priority Date/Time Associated Diagnosis Comments INFLUENZA A/B, RSV AND SARS-COV2 PCR STAT 04/05/2024 4:55 AM COMMUNICATIONS ENGINEERING TECHNICIAN GROUP A STREPTOCOCCUS PCR THROAT SWAB STAT 04/05/2024 4:55 AM COMMUNICATIONS ENGINEERING TECHNICIAN documented in this encounter Results * Influenza A/B, RSV and SARS-CoV2 PCR (COVID-19) Nose (04/05/2024 4:55 AM COMMUNICATIONS ENGINEERING TECHNICIAN) Influenza A PCR Negative Negative 04/05/2024 5:41 AM COMMUNICATIONS ENGINEERING TECHNICIAN [facility] Influenza B PCR Negative Negative 04/05/2024 5:41 AM COMMUNICATIONS ENGINEERING TECHNICIAN [facility] RSV PCR Negative Negative 04/05/2024 5:41 AM COMMUNICATIONS ENGINEERING TECHNICIAN [facility] SARS CoV2 PCR Negative Negative 04/05/2024 5:41 AM COMMUNICATIONS ENGINEERING TECHNICIAN [facility] Comment:NEGATIVE: SARS-CoV-2 (COVID-19) RNA not detected, presumed negative. Swab NASAL STRUCTURE / Unknown Non-blood Collection / Unknown 04/05/2024 4:55 AM COMMUNICATIONS ENGINEERING TECHNICIAN 04/05/2024 5:02 AM COMMUNICATIONS ENGINEERING TECHNICIAN [facility] - 04/05/2024 5:41 AM COMMUNICATIONS ENGINEERING TECHNICIAN Testing was performed using the Xpert Xpress CoV2/Flu/RSV Assay on the Cepheid GeneXpert Instrument. This test should be ordered for [...] management. This test was validated by the [facility] [employer]. These laboratories are certified under the Clinical Laboratory Improvement Amendments of 1988 (CLIA-88) as qualified to perfom high complexity laboratory testing. Juan Mares MD LAB - MICRO GENER AL ORDERABLES Final Result [facility] [address] [facility] Lab (1st floor, no room number) [place] [address], [facility] * Group A Streptococcus PCR Throat Swab (04/05/2024 4:55 AM COMMUNICATIONS ENGINEERING TECHNICIAN) Group A strep by PCR Not Detected Not Detected 04/05/2024 5:29 AM [facility] Swab STRUCTURE OF ANTERIOR PORTION OF NECK / Unknown Non-blood Collection / Unknown 04/05/2024 4:55 AM COMMUNICATIONS ENGINEERING TECHNICIAN 04/05/2024 5:02 AM COMMUNICATIONS ENGINEERING TECHNICIAN [facility]ORY - 04/05/2024 5:29 AM COMMUNICATIONS ENGINEERING TECHNICIAN The Xpert Xpress Strep A test, performed on the [employer], is a rapid, qualitative in [...] - MICRO GENER AL ORDERABLES Final Result [facility] [address] [facility] Lab (1st floor, no room number) [place] [address], [facility] documented in this encounter Visit Diagnoses Diagnosis Sore throat Acute pharyngitis Acute cough documented in this encounter Additional Health Concerns Assessment Noted Time PHQ-9 Depression Total Score: 1 10/30/19 21 7:05 AM CDT documented as of this encounter Care Teams Lead Cargo Mover Relationship Specialty Start Date End Date Yael Neville MD [address] [facility] [place] [address] PCP - General Internal Medicine 04/11/16 Emmy Vance Cnp, MARU DOWNS [employer] [place] [address] [place] [address] Nurse Practitioner Nurse Practitioner 08/26/20 documented as of this encounter
--- OUTSIDE RECORDS SUMMARY | 2024-04-08 19:42 | XMS_ITS | Encounter Summary ---
Author Organization [place] Address [address] [place] [address]. [place] [address] Care Team Providers Care Toolroom Attendant Name Role Phone Yael Neville MD Primary Care Provider [phone] Yael Neville MD Unavailable Frank Morrow Unavailable Unavailable Saul Freire Unavailable [phone] Gabino Peña MD Unavailable [phone] Alison Yan PA-C Unavailable [phone] Emmy Vance Agriculture Scientist CREWMAN MAIN BATTLE TANK CLIN TECH Unavailable [phone] Reason for Visit * Reason Comments Medication Refill Lamictal 100 mg tabl et Encounter Details Date Type Department Care Team (Late st Contact Info) Description 07/03/2019 Refill [facility] Jacek [address] [place] [address] [address] [place] [id number] Yael Neville MD [address] [place] [address] [place] [address] Medication Refill (Lamictal 100 mg tablet) Social History Tobacco Use Types Packs/Day Years Used Date Smoking Tobacco: Never Smokeless Tobacco: Never Alcohol Use Standard Drinks/Week Comments Yes 0 (1 standard drink = 0.6 oz pur e alcohol) PHQ-2 Answer Date Recorded PHQ-2 Score 0 05/14/2019 Comments No Sex and Gender Information Value Date Recorded Sex Assigned at Female 08/26/2020 11:58 AM CDT Legal Sex Female 3:37 AM STRUCTURAL ANALYSIS ENGINEER Gender Identity Female 08/26/2020 11:58 AM CDT Sexual Orientation Choose not to disclose 2020 11:58 AM CDT Travel History Travel Start Travel End [place] 03/29/2024 03/31/2024 documented as of this encounter Miscellaneous Notes * Telephone Encounter - Sofya Schmid MA - 07/10/2019 3:50 PM CDT Called patient back and assisted in scheduling a phone visit with PCP for 07/14. Sofya Dunn MA 3:50 PM 07/10/2019 * Telephone Encounter - Nga Katz - 07/10/2019 1:37 PM CDT Patient called back pt prefers to do a telephone as PCP is schedule to August. Please call her and schedule one as I am not authorized to schedule a telephone visit on the PCP schedule. Please call her cell it is ok to leave a message * Telephone Encounter - Sofya Schmid MA - 07/10/2019 9:19 AM CDT 2nd attempt: left VM to return call. Please assist pt in scheduling a medication follow up or notify to establish care with psychiatry. Sofya Dunn MA 9:21 AM 07/10/2019 * Telephone Encounter - Kaylah Finley CMA - 07/09/2019 10:44 AM CDT Called pt and left VM Kaylah Finley MA 10:44 AM 07/09/2019 * Telephone Encounter - Yael Neville MD - 07/08/2019 7:05 PM CDT Needs follow up or to establish care with psychiatry. Filled x 3 months. Yael Neville M.D. * Telephone Encounter - Meg Yancey RN - 07/04/2019 9:14 AM CST Routing refill request to provider for review/approval because: Labs not current: CBC, Platelet PHQ9 score out of range T'd up 3 month for provider review. Requested Prescriptions Pending Prescriptions Disp Refills ??? lamoTRIgine (LAMICTAL) 100 MG tablet [Pharmacy Med Name: LAMOTRIGINE 100MG TABLETS] 30 tablet 3 Sig: TAKE 1 TABLET(100 MG) BY MOUTH DAILY Last Written Prescription Date: 03/12/2019 Last Fill Quantity: 30, # refills: 3 Last office visit: 05/14/2019 with prescribing provider: Future Office Visit: Anti-Seizure Meds Protocol Failed - 07/03/2019 3:27 AM Failed - Review Authorizing provider's last note. Refer to last progress notes: confirm request is for original authorizing provider (cannot be through other providers). PHQ-9 score: PHQ 05/14/2019 PHQ-9 Total Score 8 Q9: Thoughts of better off /self-harm past 2 weeks Not at all Failed - Normal CBC on file in past 26 months Recent Labs Lab Test 04/05/17 1248 WBC 7.3 RBC 4.36 HGB 12.9 HCT 38.3 PLT 261 Failed - Normal platelet count on file in past 26 months Recent Labs Lab Test 04/05/17 1248 PLT 261 Passed - Recent (12 mo) or future (30 days) visit within the authorizing provider's specialty Patient has had an office visit with the authorizing provider or a provider within the authorizing providers department within the previous 12 mos or has a future within next 30 days. See Patient Info tab in inbasket, or Choose Columns in Meds & Orders section of the refill encounter. Passed - Normal ALT or AST on file in past 26 months Recent Labs Lab Test 04/16/18 1017 ALT 24 Recent Labs Lab Test 04/16/18 1017 AST 12 Passed - Medication is active on med list Passed - No active on record Passed - No positive test in last 12 months Meg Yancey, RN CTURAL ANALYSIS ENGINEER documented in this encounter Plan of Treatment Not on file documented as of this encounter Visit Diagnoses Diagnosis Moderate major depression (H) Major depressive disorder, single episode, moderate Generalized anxiety disorder documented in this encounter Additional Health Concerns Infection Onset Date Last Indicated Resolved Time Rule Out COVID-19 01/14/2020 01/14/2020 01/15/2020 10:31 PM CDT Rule Out COVID-19 04/06/2020 04/06/2020 04/07/2020 10:32 AM STRUCTURAL ANALYSIS ENGINEER Rule Out COVID-19 06/11/2020 06/11/2020 06/11/2020 7:00 PM STRUCTURAL ANALYSIS ENGINEER Assessment Noted Time PHQ-9 Depression Total Score: 8 05/15/19 20 7:02 AM STRUCTURAL ANALYSIS ENGINEER documented as of this encounter Care Teams Toolroom Attendant Relationship Specialty Start Date End Date Yael Neville MD [address] [place] [address] [place] [address] PCP - General Internal Medicine 04/11/16 Yael Neville MD [address] [place] [address] [place] [address] Assigned PCP 06/13/16 03/22/24 Frank Morrow Personal Advocate & Liaison (PAL) 03/11/19 11/03/19 Saul Freire LSW [facility] Plate Glass Grinder [facility] - [facility] 12/02/1903/20 Gabino Peña MD [address] [place] [address] Assigned Heart and Vascular Provider 02/21/20 07/03/21 Alison Yan PA-C [address] [place] [address] Assigned Sleep Provider 07/15/20 2 Emmy Vance Cnp, MARU DOWNS [employer] [place] [address] [place] [address] Nurse Practitioner Nurse Practitioner 08/26/20 documented as of this encounter
--- OUTSIDE RECORDS SUMMARY | 2024-04-08 19:42 | XMS_ITS | Encounter Summary ---
Author Organization [place] Address [address] [place] [address]. [place] [address] Care Team Providers Care Sheriff'S Sergeant Name Role Phone Yael Neville MD Primary Care Provider [phone] Emmy Vance Industrial Boilermaker JOURNEYMAN MILLWRIGHT AGRONOMY RESEARCH MANAGER Unavailable [phone] Encounter Details Date Type Department Care Team (Latest Contact Info) Description 04/05/2024 Travel Social History Tobacco Use Types Packs/Day Years [...] AM CDT Legal Sex Female 3:37 AM FIELD COIL WINDER Gender Identity Female 08/26/2020 11:58 AM CDT Sexual Orientation Choose not to disclose 2020 11:58 AM CDT Travel History Travel Start Travel End [place] 03/29/2024 03/31/2024 documented as of this encounter Plan of Treatment Not on file documented as of this encounter Visit Diagnoses Not on filedocumented in this encounter Additional Health Concerns Assessment Noted Time PHQ-9 Depression Total Score: 1 10/30/19 7:05 AM CDT documented as of this encounter Care Teams Sheriff'S Sergeant Relationship Specialty Start Date End Date Yael Neville MD [address] [facility] [place] [address] PCP - General Internal Medicine 04/11/16 Emmy Vance Cnp, APRN CNP [employer] [place] [address], [place] [address] Nurse Practitioner Nurse Practitioner 08/26/20 documented as of this encounter
--- OUTSIDE RECORDS SUMMARY | 2024-04-08 19:42 | XMS_ITS | Encounter Summary ---
Author Organization [place] Address [address] [place] [address]. [place] [address] Care Team Providers Care Dish Cloth Inspector Name Role Phone Yael Neville MD Primary Care Provider [phone] Yael Neville MD Unavailable [phone] Gabino Peña MD Unavailable [phone] Alison Yan PA-C Unavailable [phone] Emmy Vance Garment Fitter BODY TECHNICIAN/PAINTER SPECIAL SERVICES DIRECTOR Unavailable [phone] Encounter Details Date Type Department Care Team (Late st Contact Info) Description 04/28/[address] [facility] [address] [facility] [address] [place] [phone] Yael Neville MD [address] [place] [address] [place] [id number] Social History Tobacco Use Types Packs/Day Years [...] AM CDT Legal Sex Female 3:37 AM CLOTH EDGE SINGER Gender Identity Female 08/26/2020 11:58 AM CDT [...] documented as of this encounter Care Teams Dish Cloth Inspector Relationship Specialty Start Date End Date Yael Neville MD [address] [place] [address] [place] [address] PCP - General Internal Medicine 04/11/16 Yael Neville MD [address] [place] [address] [place] [address] Assigned PCP 06/13/16 03/22/24 Gabino Peña MD [address] [place] [address] Assigned Heart and Vascular Provider 02/21/20 07/03/21 Alison Yan PA-C [address] [place] [address] Assigned Sleep Provider 07/15/20 2 Emmy Vance Garment Fitter, MARU SPECIAL SERVICES DIRECTOR [employer] [place] [address] [place] [address] Nurse Practitioner Nurse Practitioner 08/26/20 documented as of this encounter
--- OUTSIDE RECORDS SUMMARY | 2024-04-08 19:42 | XMS_ITS | Clinical Summary ---
Author Organization [facility] Address [place], [place] [address] Care Team Providers Care Food Operations Manager Name Role Phone Yael Neville MD Primary Care Provider Allergies Active Allergy Reactions Criticality Noted Date Comments Diatrizoate Allergen Hives,Shortness Of Breath 09/08/2016 Penicillins Hives 09/08/2016 Azithromycin Hives 09/08/2016 Medications drospirenone-e thinyl estradiol (PASHA, 28,) 3-0.03 mg tablet Take 1 tablet by mouth once daily. Active HYDROcodone-ac etaminophen, 5-325 mg, (NORCO) per tabletIndicati ons:Macromasti a Take 1-2 tablets by mouth every 4 hours if needed for Pain. Max acetaminophen dose: 4000 mg in 24 hrs. 50 tablet 09/08/2016 2:19 PM CDT 7 Active Social History Tobacco Use Types Packs/Day Years Used Date Smoking Tobacco: Never Assessed Comments Unknown Sex and Gender Information Value Date Recorded Sex Assigned at Not on file Legal Sex Female 3:33 PM CDT Gender Identity Not on file Sexual Orientation Not on file Obstetrics History Last Filed Vital Signs Vital Sign Reading Time Taken Comments Blood Pressure 122/59 09/08/2016 2:05 PM CDT Pulse 93 09/08/2016 2:05 PM CDT Temperature 37.2 C (99 F) 09/08/2016 1:20 PM CDT Respiratory Rate 16 09/08/2016 2:05 PM CDT Oxygen Saturation 95% 09/08/2016 2:05 PM CDT Inhaled Oxygen Concentration - - Weight 84.8 kg (187 lb) 09/08/2016 8:32 AM CDT Height 167 cm (5' 5.75) 09/08/2016 8:32 AM CDT Body Mass Index 30.41 09/08/2016 8:32 AM CDT Plan of Treatment Health Maintenance Due Date Last Done Comments Tdap 2008 Depression screening for age 12+ 2009 HIV for age 15-65 2012 HPV series for age 9-26 (1 - 3-dose series) 2012 Hepatitis C screening for ag e 18-79 08/24/2015 BMI (ht and wt on same day) for age 18+ 08/05/2017 08/05/2016 Tetanus booster 2017 Pap test for age 21-65 2018 COVID-19 vaccine series ( season) 2023 Influenza for age 9-49 12/31/2023 Pneumococcal series for age 6-64 Aged Out No longer eligible based on patient's age to complete this topic Advance Directives * Full Code (Latest Code Status on File) Date Activated Date Inactivated Comments 09/08/2016 8:19 AM 09/09/2016 2:31 AM Care Teams Food Operations Manager Relationship Specialty Start Date End Date Yael Neville MD [address] [place] [address] [place] [address] PCP - General Internal Medicine 09/06/16
[2024-04-08 19:47] LABS: Basophils Percent Auto 0.2 % (0.0-3.0); Eosinophils Percent Auto 0.5 % (0.0-7.0); Hematocrit 32.8 % (33.0-51.0); Hemoglobin* 10.6 gm/dL (12.0-16.0); Immature Granulocytes Pct Auto 0.6 %; Lymphocytes Percent Auto 19.5 % (20-44); Mean Corpuscular HGB Conc 32 gm/dL (32-36); Mean Corpuscular Hemoglobin 28 pg (26-34); Mean Corpuscular Volume 85 fL (80-100); Monocytes Percent Auto 9.1 % (0.0-11.0); Neutrophils Percent Auto 70.1 % (42.0-72.0); Platelet Count* 230 K/uL (140-440); RDW Coefficient of Variation % 13.5 % (11.5-15.5); Red Blood Count 3.86 m/uL (4.00-5.20)
--- NOTE | 2024-04-08 20:02 | ED_ITS ---
HPI - General Adult General Chief complaint: Cough Stated complaint: chest congestion, cough Time Seen by Provider: 04/08/24 19:22 Source: patient Mode of arrival: ambulatory Limitations: no limitations History of Present Illness HPI narrative: 28-year-old female G1 at 23 weeks gestation presenting today with cough, congestion insulin throat for 5 days. Patient states that she was seen at [facility] over 3 days ago he had all of her swabs were negative. She states that today her cough got worse and became productive. She describes feeling sweaty and that feeling chills, no measured elevated temperatures. has been uncomplicated. She denies any sick contacts. No significant diarrhea. No urinary symptoms. No abdominal or chest pain. No skin rashes. Generally healthy. Takes no medications. Related Data Home Medications ?Medication ?Instructions ?Recorded ?Confirmed No Known Home Medications 04/08/24 04/08/24 Allergies Allergy/AdvReac Type Severity Reaction Status Date / Time azithromycin AdvReac Verified 04/08/24 19:20 Penicillins AdvReac Verified 04/08/24 19:20 Review of Systems Status of ROS: Reports: 10 or more systems reviewed and unremarkable except as noted in History and below Exam Narrative: Exam Narrative: Well-nourished well-developed patient in no acute distress, appears tired. Aler t and oriented. Answers questions appropriately. Mood and affect are appropriate. Thoughts are goal oriented and rational. No tangential or magical thinking noted. Patient speaks in full sentences without needing to catch her breath. Voice does sound congested. HEENT: Normocephalic atraumatic. Pupils are equally round reactive to light. Extraocular muscles are intact. Conjunctivae are moist without any icterus noted. Moist mucous membranes. Posterior pharynx is normal. Neck is soft without any lymphadenopathy or thyromegaly. No masses are appreciated. Cardiovascular: Heart is regular rate and rhythm S1 and S2 are present without any murmurs. Lungs: Clear to auscultation bilaterally no wheezes rhonchi or rales are appreciated. Patient takes deep breaths without any discomfort. Abdomen: Soft and nontender nondistended with normal bowel sounds. Extremities: Bilateral lower extremities are without edema. Skin: Well perfused without any obvious rashes. Const: Vital Signs, click to edit/add: Vital Signs - 24 hr 04/08/24 19:15 Temperature 98.1 F Pulse Rate [Pulse Oximeter] 94 Respiratory Rate 20 Blood Pressure [Ri t Upper Arm] 139/81 Pulse Oximetry 98 Oxygen Delivery Me thod Room Air Course Course ED Course: CBC shows a slightly elevated white cell count and anemia-both consistent with . Triple swab is negative. Normal chemistries. Chest x-ray, read by me, does not show any acute infiltrates or pathology. Vital Signs Vital signs: Initial Vital Signs Temperature 98.1 F 04/08/24 19:15 Temperature Source Temporal Artery Scan 04/08/24 19:15 Pulse Rate 94 04/08/24 19:15 Respiratory Rate 20 04/08/24 19:15 Blood Pressure 139/81 04/08/24 19:15 Blood Pressure Mean 100 04/08/24 19:15 Blood Pressure Position Sitting 04/08/24 19:15 Pulse Oximetry 98 04/08/24 19:15 Oxygen Delivery Method Room Air 04/08/24 19:15 Vital Signs Temperature 98.1 F 04/08/24 19:15 Pulse Rate 94 04/08/24 19:15 Respiratory Rate 20 04/08/24 19:15 Blood Pressure 139/81 04/08/24 19:15 Pulse Oximetry 98 04/08/24 19:15 Oxygen Delivery Method Room Air 04/08/24 19:15 Temperature 98.1 F 04/08/24 19:15 Pulse Rate 94 04/08/24 19:15 Respiratory Rate 20 04/08/24 19:15 Blood Pressure 139/81 04/08/24 19:15 Pulse Oximetry 98 04/08/24 19:15 Oxygen Delivery Method Room Air 04/08/24 19:15 Medical Decision Making [facility] Narrative Medical decision making narrative: 28-year-old female with a URI. We did not do a rapid strep today as patient has been afebrile, cough is her main symptom which is causing a sore throat. Throat exam is normal and not consistent with strep pharyngitis. Did also order a pertusses PCR since pertusses has been going around the community. This is pending. No evidence of pneumonia. We discussed symptomatic treatment. Patient will follow-up with her OBGYN to discuss any antitussives. Lab Data Lab results reviewed: Yes I reviewed the patient's lab results Labs: Lab Results 04/08/24 04/08/24 Range/Units 19:33 19:42 WBC 13.00 H (4.50-11.00) K/uL RBC 3.86 L (4.00-5.20) m/uL Hgb 10.6 L (12.0-16.0) gm/dL Hct 32.8 L (33.0-51.0) % MCV 85 (80-100) fL MCH 28 (26-34) pg MCHC 32 (32-36) gm/dL RDW Coeff of Perla 13.5 (11.5-15.5) % Plt Count 230 (140-440) K/uL Neut % (Auto) 70.1 (42.0-72.0) % Lymph % (Auto) 19.5 L (20-44) % [place] % (Auto) 9.1 (0.0-11.0) % Eos % (Auto) 0.5 (0.0-7.0) % Baso % (Auto) 0.2 (0.0-3.0) % Neut # (Auto) 9.10 H (1.7-7.0) K/uL Lymph # (Auto) 2.50 (0.90-2.90) K/uL [place] # (Auto) 1.20 H (0.00-0.90) K/UL Eos # (Auto) 0.10 (0.00-0.50) K/uL Baso # (Auto) 0.00 (0.00-0.30) K/uL Abs Immat Gran (auto) 0.10 (0.00-0.30) K/uL Imm/Tot Granulo (auto) 0.6 % Sodium 136 (135-149) mmol/L Potassium 4.1 (3.6-5.1) mmol/L Chloride 109 (96-114) mmol/L Carbon Dioxide 21 (20-32) mmol/L Anion Gap 6 L (7-15) mEq/L BUN 9 (5-24) mg/dL Creatinine 0.4 L (0.5-1.5) mg/dL Estimated Creat Clear 199.52 Estimated GFR 140 ml/min Glucose 80 (60-115) mg/dL Calcium 9.2 (8.4-10.6) mg/dL SARS-CoV-2 (PCR) Negative SARS-CoV-2 (Negative) Influenza Type A (PCR) Negative PCR FLU A (Negative) Influenza Type B (PCR) Negative PCR FLU B (Negative) RSV (PCR) Negative PCR RSV (Negative) Imaging Data Chest x-ray: Attestation: I have reviewed the pertinent imaging results. Radiologist's impression: TECHNIQUE: Chest radiograph 2 views COMPARISON: None FINDINGS: Mediastinum: The mediastinum is normal in appearance. The heart silhouette is normal in size and morphology. Mild elevation of the right hemidiaphragm is noted. Lung: Both lungs are unremarkable in appearance with small lung volumes. No sign of pleural effusion seen. No pneumothorax is identified. Bone and Soft tissue: Unremarkable for age. IMPRESSION: 1. No acute cardiopulmonary disease is seen. Discharge Plan Discharge Clinical Impression: Acute upper respiratory infection Patient Disposition: Home, Self-Care Condition: Stable Instructions: Upper Respiratory Infection (DC) Additional Instructions: There is no evidence of pneumonia on your workup today. We also tested for COVID, influenza and RSV-all of which were negative. Last test that is pending is for whooping cough. If this is positive, you will be called with results. Recommend steamer or humidifier to help with cough. Can also try warm tea with honey. I would call your OBGYN 1st thing in the morning to ask their advice on any anti tussive medications then you can take while -this is medication to help with cough. Return to the emergency department if you develop high fevers or have difficulty breathing. Prescriptions: No Action No Known Home Medications Follow Up/Referrals: Yael Neville MD [Primary Care Provider] - Stand Alone Forms: [facility] Info Instructions
[2024-04-08 20:09] LABS: Slide Review Reflex No
[2024-04-08 20:10] LABS: Chloride* 109 mmol/L (96-114); Potassium* 4.1 mmol/L (3.6-5.1); Sodium* 136 mmol/L (135-149)
[2024-04-08 20:13] LABS: Anion Gap 6 mEq/L (7-15); Blood Urea Nitrogen* 9 mg/dL (5-24); Calcium* 9.2 mg/dL (8.4-10.6); Carbon Dioxide* 21 mmol/L (20-32); Creatinine* 0.4 mg/dL (0.5-1.5); Est. Creatinine Clearance* 199.52; Estimated Glomerular Filt Rate 140 ml/min; Glucose* 80 mg/dL (60-115)
[2024-04-08 20:19] LABS: PCR FLU A Negative PCR FLU A (Negative); PCR FLU B Negative PCR FLU B (Negative); PCR RSV Negative PCR RSV (Negative); SARS PCR* Negative SARS-CoV-2 (Negative)
[2024-04-08 20:58] VITALS: BP 128/74; PULSE 85; RESP 20; TEMP 36.7; O2SAT 98
[2024-04-11 19:29] LABS: B. pertussis/parapertus Source Not Provided; Bordetella parapertussis PCR Not Detected; Bordetella pertussis by PCR Not Detected
== END 2024-04-08 20:46 | disposition home or self-care (01) ==
PROVIDERS: Emergency Provider Family Medicine; PCP Internal Medicine
DX: J06.9 Acute upper respiratory infection, unspecified (principal)
CPT/HCPCS: 36415; 71046; 80048; 85025; 87631; 99283; 99284

== ENCOUNTER 2024-06-05 16:46 | Emergency (ER) | payer OTHER, SELFPAY ==
--- OUTSIDE RECORDS SUMMARY | 2024-06-05 16:49 | XMS_ITS | Encounter Summary ---
Author Organization [facility] Address [address] [place] [address]. [place] [address] Care Team Providers Care Medical Payment Poster Name Role Phone Yael Neville MD Primary Care Provider [phone] Yael Neville MD Unavailable [phone] Gabino Peña MD Unavailable [phone] Alison YanC Unavailable [phone] Emmy Vance Seed Laboratory Assistant FOOT DRILL OPERATOR KNOT SAW OPERATOR Unavailable [phone] Reason for Visit * Reason Onset Date Comments Refill Request 06/23/2020 ipratropium (ATR OVENT) 0.06 % nasal spray Encounter Details Date Type Department Care Team (Late st Contact Info) Description 06/23/[address] [facility] Jacek [address] [place] [address] Drive [address] [place] [phone] [place] [address] [place] [address] [place] [address] Refill Request (ipratropium (ATROVENT) 0.06 [...] AM CDT Legal Sex Female 3:37 AM CHARGE ACCOUNT AUTHORIZER Gender Identity Female 08/26/2020 11:58 AM CDT Sexual Orientation Choose not to disclose 2020 11:58 AM CDT COVID-19 Exposure Response Date Recorded In the last month, have you been in contact with someone who was confirmed or suspected to have Coronavirus / COVID-19? Unable to assess 06/11/2020 11:40 AM CHARGE ACCOUNT AUTHORIZER documented as of this encounter Miscellaneous Notes * Telephone Encounter - Yesi Best RN - 06/24/2020 12:52 PM CST Medication refilled per [facility] protocol Yesi Best RN GE ACCOUNT AUTHORIZER documented in this encounter Plan of Treatment Upcoming Encounters Date Type Department Care Team (Late st Contact Info) Description 06/19/2024 12:00 PM CHARGE ACCOUNT AUTHORIZER Infusion Therapy Visit [place] [address] [place] [phone] Jeff Wong MD [facility] [address] [place], [place] [phone] 06/24/2024 9:00 AM CHARGE ACCOUNT AUTHORIZER Infusion Therapy Visit [facility] [address] [place] [phone] Jeff Wong MD [facility] [address] [place], [place] [phone] 06/26/2024 2:00 PM CHARGE ACCOUNT AUTHORIZER Infusion Therapy Visit [facility] [address] [place] [phone] Jeff Wong MD [facility] [address] [place], [place] [phone] documented as of this encounter Visit Diagnoses Diagnosis Suspected COVID-19 virus infection documented in this encounter Additional Health Concerns Assessment Noted Time PHQ-9 Depression Total Score: 16 020 8:26 AM CDT documented as of this encounter Care Teams Medical Payment Poster Relationship Specialty Start Date End Date Yael Neville MD [address] [place] [address] [place] [address] PCP - General Internal Medicine 04/11/16 Yael Neville MD [address] [place] [address] [place] [address] Assigned PCP 06/13/16 03/22/24 Gabino Peña MD [address] [place] [address] Assigned Heart and Vascular Provider 02/21/20 07/03/21 Alison Yan PA-C [address] [place] [address] Assigned Sleep Provider 07/15/20 2 Emmy Vance Cnp, MARU KNOT SAW OPERATOR [employer] [facility] [place] [address] [place] [address] Nurse Practitioner Nurse Practitioner 08/26/20 documented as of this encounter
--- OUTSIDE RECORDS SUMMARY | 2024-06-05 16:49 | XMS_ITS | Encounter Summary ---
Author Organization [facility] Address [address] [place] [address]. [place] [address] Care Team Providers Care Park Activities Coordinator Name Role Phone Yael Neville MD Primary Care Provider [phone] Yael Neville MD Unavailable [phone] Gabino Peña MD Unavailable [phone] Alison Yan PAAshlyC Unavailable [phone] Emmy Vance Lathe Hand RESEARCH FOOD TECHNOLOGIST BLANKET BINDER Unavailable [phone] Encounter Details Date Type Department Care Team (Late st Contact Info) Description 07/22/2020 MyC Medical Advice [address] [place] [phone] Mikki Gonzalez Social History Tobacco Use [...] AM CDT Legal Sex Female 3:37 AM SUTURE POLISHER Gender Identity Female 08/26/2020 11:58 AM CDT Sexual Orientation Choose not to disclose 2020 11:58 AM CDT documented as of this encounter Plan of Treatment Upcoming Encounters Date Type Department Care Team (Late st Contact Info) Description 06/19/2024 12:00 PM SUTURE POLISHER Infusion Therapy Visit [place] [address] [facility] [address] [place] [phone] Jeff Wong MD [facility] [address] [place], [place] [phone] 06/24/2024 9:00 AM SUTURE POLISHER Infusion Therapy Visit [facility] [address] [facility] [address] [place] [phone] Jeff Wong MD [facility] [address] [place] [address] 06/26/2024 2:00 PM SUTURE POLISHER Infusion Therapy Visit [facility] [address] [place] [phone] Jeff Wong MD [facility] [address] [place] [address] documented as of this encounter Visit Diagnoses Not on filedocumented in this encounter Additional Health Concerns Assessment Noted Time PHQ-9 Depression Total Score: 16 020 8:26 AM CDT documented as of this encounter Care Teams Park Activities Coordinator Relationship Specialty Start Date End Date Yael Neville MD [address] [place] [address] [place] [address] PCP - General Internal Medicine 04/11/16 [place] [address] [place] [address] [place] [address] Assigned PCP 06/13/16 03/22/24 Gabino Peña MD [address] [place] [address] Assigned Heart and Vascular Provider 02/21/20 07/03/21 Alison Yan PA-C [address] [place] [address] Assigned Sleep Provider 07/15/20 2 Emmy Vance Cnp, APRN CNP [facility] [place] [address] [place] [address] Nurse Practitioner Nurse Practitioner 08/26/20 documented as of this encounter
--- OUTSIDE RECORDS SUMMARY | 2024-06-05 16:49 | XMS_ITS | Encounter Summary ---
Author Organization [facility] Address [address] [place] [address]. [place] [address] Care Team Providers Care Strategy Analyst Name Role Phone Yael Neville MD Primary Care Provider [phone] Yael Neville MD Unavailable [phone] Gabino Peña MD Unavailable [phone] Alison YanC Unavailable [phone] Emmy Vance Sand Digger GAS PROCESSING PLANT OPERATOR CONCRETE CONVEYOR OPERATOR Unavailable [phone] Reason for Visit * Reason Onset Date Comments Refill Request 03/25/2020 metFORMIN (GLUCO PHAGE-XR) 500 MG 24 hr tablet Encounter Details Date Type Department Care Team (Late st Contact Info) Description [facility] [address] [place] [phone] [place] [address] [place] [address] [place] [address] Refill Request (metFORMIN (GLUCOPHAGE-XR) [...] AM CDT Legal Sex Female 3:37 AM NICKEL OPERATOR Gender Identity Female 08/26/2020 11:58 AM CDT Sexual Orientation Choose not to disclose 2020 11:58 AM CDT documented as of this encounter Miscellaneous Notes * Telephone Encounter - Pao Stuart RN - 03/27/2020 9:18 AM NICKEL OPERATOR Prescription approved per [facility] Refill Protocol. Pao Stuart RN [facility] -- Triage Nurse EL OPERATOR documented in this encounter Plan of Treatment Upcoming Encounters Date Type Department Care Team (Late st Contact Info) Description 06/19/2024 12:00 PM NICKEL OPERATOR Infusion Therapy Visit [place] [address] [place] [phone] Jeff Wong MD [facility] [address] [place], [place] [phone] 06/24/2024 9:00 AM NICKEL OPERATOR Infusion Therapy Visit [place] [address] [place] [phone] Jeff Wong MD [facility] [address] [place], [place] [phone] 06/26/2024 2:00 PM NICKEL OPERATOR Infusion Therapy Visit [place] [address] [place] [phone] Jeff Wong MD [facility] [address] [place], [place] [phone] documented as of this encounter Visit Diagnoses Diagnosis 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 Polycystic ovaries documented in this encounter Additional Health Concerns Infection Onset Date Last Indicated Resolved Time Rule Out COVID-19 04/06/2020 04/06/2020 04/07/2020 10:32 AM NICKEL OPERATOR Rule Out COVID-19 06/11/2020 06/11/2020 06/11/2020 7:00 PM NICKEL OPERATOR Assessment Noted Time PHQ-9 Depression Total Score: 16 020 8:26 AM CDT documented as of this encounter Care Teams Strategy Analyst Relationship Specialty Start Date End Date Yael Neville MD [address] [place] [address] [place] [address] PCP - General Internal Medicine 04/11/16 Yael Neville MD [address] [place] [address] [place] [address] Assigned PCP 06/13/16 03/22/24 Gabino Peña MD [address] [place] [address] Assigned Heart and Vascular Provider 02/21/20 07/03/21 Alison Yan PA-C [address] [place] [address] Assigned Sleep Provider 07/15/20 2 Emmy Vance Cnp, MARU CONCRETE CONVEYOR OPERATOR [employer] [facility] [place] [address] [place] [address] Nurse Practitioner Nurse Practitioner 08/26/20 documented as of this encounter
--- OUTSIDE RECORDS SUMMARY | 2024-06-05 16:49 | XMS_ITS | Encounter Summary ---
Author Organization [facility] Address [address] [place] [address]. [place] [address] Care Team Providers Care Supervisor Cured Meats Name Role Phone Yael Neville MD Primary Care Provider [phone] Yael Neville MD Unavailable [phone] Emmy Vance Cherry Grower KILN FEEDER DRAMA TEACHER Unavailable Encounter Details Date Type Department Care Team (Late st Contact Info) Description 05/14/2022 MyC Medical Advice [facility] Jacek [address] [place] [phone] Yael Neville MD [address] [facility] [place] [address] Social History Tobacco [...] AM CDT Legal Sex Female 3:37 AM HIM ASSISTANT Gender Identity Female 08/26/2020 11:58 AM CDT Sexual Orientation Choose not to disclose 2020 11:58 AM CDT documented as of this encounter Plan of Treatment Upcoming Encounters Date Type Department Care Team (Late st Contact Info) Description 06/19/2024 12:00 PM HIM ASSISTANT Infusion Therapy Visit [place] [address] [facility] [address] [place] [phone] Jeff Wong MD [facility] [address] [place], [place] [phone] 06/24/2024 9:00 AM HIM ASSISTANT Infusion Therapy Visit [place] [address] [place] [phone] Jeff Wong MD [facility] [address] [place] [address] 06/26/2024 2:00 PM HIM ASSISTANT Infusion Therapy Visit [place] [address] [place] [phone] Jeff Wong MD [facility] [address] [place] [address] documented as of this encounter Visit Diagnoses Not on filedocumented in this encounter Additional Health Concerns Assessment Noted Time PHQ-9 Depression Total Score: 1 10/30/19 21 7:05 AM CDT documented as of this encounter Care Teams Supervisor Cured Meats Relationship Specialty Start Date End Date Yael Neville MD [address] [place] [address] [place] [address] PCP - General Internal Medicine 04/11/16 [place] [address] [place] [address] [place] [address] Assigned PCP 06/13/16 03/22/24 Emmy Vance Cnp, MARU DOWNS [facility] [address] [address] Nurse Practitioner Nurse Practitioner 08/26/20 documented as of this encounter
--- OUTSIDE RECORDS SUMMARY | 2024-06-05 16:49 | XMS_ITS | Encounter Summary ---
Author Organization [facility] Address [address] [place] [address]. [place] [address] Care Team Providers Care Artist Manager Name Role Phone Yael Neville MD Primary Care Provider [phone] Yael Neville MD Unavailable [phone] Gabino Peña MD Unavailable [phone] Alison YanC Unavailable [phone] Emmy Vance Primary Teacher [employer]ZE SUPER[employer] H[employer] TRIMMER Unavailable [phone] Reason for Visit * Reason Onset Date Comments Appointment 12/09/2020 TB blood test Encounter Details Date Type Department Care Team (Late st Contact Info) Description 12/09/[facility] [address] [place] [phone] Yael Neville MD [address] [place] [address] [place] [id number] Appointment (TB blood test) [...] CDT Legal Sex Female 3:37 AM RESEARCH GENETICIST Gender Identity Female 08/26/2020 11:58 AM CDT Sexual Orientation Choose not to disclose 2020 11:58 AM CDT documented as of this encounter Miscellaneous Notes * Telephone Encounter - Lucie Dao - 12/10/2020 11:15 AM CDT [employer] message sent to patient. * Telephone Encounter - Brenda Kumar - 12/09/2020 8:07 PM CDT Patient needs a TB blood test for school. Can you please put order in for her? documented in this encounter Plan of Treatment Upcoming Encounters Date Type Department Care Team (Late st Contact Info) Description 06/19/2024 12:00 PM RESEARCH GENETICIST Infusion Therapy Visit [place] [id number] [place] [phone] Jeff Wong MD [facility] [address] [place] [address] 06/24/2024 9:00 AM RESEARCH GENETICIST Infusion Therapy Visit [facility] [id number] [place] [phone] Jeff Wong MD [facility] [address] [place], [place] [id number] 06/26/2024 2:00 PM RESEARCH GENETICIST Infusion Therapy Visit [facility] [address] [place] [phone] Jeff Wong MD [facility] [address] [place], [place] [id number] documented as of this encounter Visit Diagnoses Not on filedocumented in this encounter Additional Health Concerns Assessment Noted Time PHQ-9 Depression Total Score: 1 10/30/19 21 7:05 AM CDT documented as of this encounter Care Teams Artist Manager Relationship Specialty Start Date End Date Yael Neville MD [address] [place] [address] [place] [id number] PCP - General Internal Medicine 04/11/16 Yael Neville MD [address] [place] [address] [place] [id number] Assigned PCP 06/13/16 03/22/24 Gabino Peña MD [address] [place] [address] Assigned Heart and Vascular Provider 02/21/20 07/03/21 Alison Yan PA-C [address] [place] [address] Assigned Sleep Provider 07/15/20 2 Emmy Vance Cnp, GLAZE SUPERVISOR HIDE TRIMMER [employer] [facility] [address] [place] [address] Nurse Practitioner Nurse Practitioner 08/26/20 documented as of this encounter
--- OUTSIDE RECORDS SUMMARY | 2024-06-05 16:49 | XMS_ITS | Data Portability ---
Author Organization [facility], [id number] Address [address] [address] [place] [address] Assessment Encounter Date Assessment Date Assessment LastModified by Organization Details LastModified Time 06/26/2023 06/26/2023 27yo G1 with a missed @ 7w4d, measuring 7w3d. I reviewed the ultrasound findings with Daysi and her partner. We discussed the findings of a collapsing GS, larger KIRBY as well as no FCA, diagnostic of a missed . As such, we reviewed management options as well as the risks and benefits of each including but not limited to expectant management x 1-2 weeks, medical management and surgical management (in office ipas versus in OR suction D&C). Daysi elects for a suction D&C in the OR [facility]. Surgery orders were placed and her preoperative exam was completed today. All risks, benefits and alternatives of the procedure were discussed today including but not limited to bleeding, infection, injury to surrounding organs/structure s (bowel, bladder, ureters, urethra, vagina, cervix, ovaries, tubes)/blood vessels/nerves, need for further procedure, need for hysterectomy, medical complications (pneumonia, stroke, heart attack, DVT/PE, ), risks of anesthesia, uterine perforation (<1/100), uterine scarring, complications for future pregnancies. She will be scheduled for the above procedure and contacted by our digital traffic coordinator and scheduled for any necessary pre and postoperative visits. Bleeding precautions were reviewed. All of her questions were answered. [email or web address] Not available 06/26/2023 14:10:27 Plan of Treatment Reminders Order Date Submit Date Provider Last Modified By Organization Details Last Modified Time Details Appointments None record ed. Lab None record ed. Referral None record ed. Procedures None record ed. Surgeries suctio n dilati on & curett age (SURG) 2023 024 [facility], [address], [address], [place], [address], 4 11:33:02 Imaging US, obstet kaz, transv aginal 2023 024 [email or web address] [id number] [facility], [address], [address], [place], [address], 4 13:21:57 US, obstet kaz, transv aginal 2023 024 [email or web address] [id number] [facility], [address], [address], [place], [address], 4 09:29:41 US, obstet kaz, transv aginal 2023 024 [email or web address] [id number] [facility], [address], [address], [place], [address], 4 14:05:36 Medication Orders None record ed. Patient TargetsNo targets recorded. Patient InstructionsNo instructions recorded. Reason for Referral None Reported. Results Created Date Observation Date Name Description Value Unit Range Abnormal Flag Note LastModifiedBy Organization Detail LastModifiedTime 05/26/19 24 05/26/2023 HCG PREGN ABHIJEET QUANT ITATI VE SERUM /PLAS MA HCG quantitative 20 mIU/m L <5 high Adult : 0-5 mIU/m L for healt hy non-p regna nt perso n Neona swetha: Shoul d be withi n candido l range s by 2 days after Not Available [address], [place], [address], 05/26/2023 16:43:03 05/26/19 05/26/2023 ABO RH TYPE AND SCREE N specimen expiration date [id number] 00 Not Available [address], [place], [address], 05/26/2023 16:43:05 05/26/19 24 05/26/2023 ABO RH TYPE AND SCREE N ABO Rh(D) O POS Not Available [address], [place], [address], 05/26/2023 16:43:05 05/26/19 24 05/26/2023 ABO RH TYPE AND SCREE N antibody screen Negati ve negati ve Not Available [address], [place], [address], 05/26/2023 16:43:05 05/29/19 24 05/29/2023 HCG PREGN ABHIJEET QUANT ITATI VE SERUM /PLAS MA HCG quantitative 106 mIU/m L <5 high Adult : 0-5 mIU/m L for healt hy non-p regna nt perso n Neona swetha: Shoul d be withi n candido l range s by 2 days after Not Available [address], [place], [address], 05/29/2023 13:09:29 05/31/19 24 05/31/2023 HCG PREGN ABHIJEET QUANT ITATI VE SERUM /PLAS MA HCG quantitative 281 mIU/m L <5 high Adult : 0-5 mIU/m L for healt hy non-p regna nt perso n Neona swetha: Shoul d be withi n candido l range s by 2 days after Not Available [address], [place], [address], 05/31/2023 12:22:17 06/02/19 24 06/02/2023 HCG PREGN ABHIJEET QUANT ITATI VE SERUM /PLAS MA HCG quantitative 805 mIU/m L <5 high Adult : 0-5 mIU/m L for healt hy non-p regna nt perso n Neona swetha: Shoul d be withi n candido l range s by 2 days after Not Available [facility] [address], [place], [address], 06/02/2023 12:33:15 06/06/19 24 06/06/2023 HCG PREGN ABHIJEET QUANT ITATI VE SERUM /PLAS MA HCG quantitative 4170 mIU/m L <5 high Adult : 0-5 mIU/m L for healt hy non-p regna nt perso n Neona swetha: Shoul d be withi n candido l range s by 2 days after Not Available [facility] [address], [place], [address], 06/07/2023 16:26:21 10/24/19 24 10/24/2023 HCG PREGN ABHIJEET QUANT ITATI VE SERUM /PLAS MA HCG quantitative 1 mIU/m L <5 Adult : 0-5 mIU/m L for healt hy non-p regna nt perso n Neona swetha: Shoul d be withi n candido l range s by 2 days after Not Available [facility] [address], [place], [address], 10/24/2023 12:15:24 06/07/19 24 06/07/2023 US, obste tric, trans vagin al No observ ation record ed. [email or web address] [address]ya [address], [place], [address], 06/11/2023 22:06:32 06/21/19 24 06/21/2023 US, obste tric, trans vagin al No observ ation record ed. [email or web address] [address], [place], [address], 06/22/2023 10:40:28 06/26/19 24 06/26/2023 US, obste tric, trans vagin al No observ ation record ed. [email or web address] [address], [place], [address], 06/27/2023 12:21:08 Result Notes None recorded. Problems Name Problem SNOMED Code Status Onset Date Resolution Date Notes Provider Name and Address Organization Details Recorded Time Colitis 77683328 Active Asha Chau (TERMED) null, [place] STOCK REPAIRER 2 15:47:11 Anxiety 19225508 Active Asha Cahu (TERMED) null, [facility] STOCK REPAIRER 2 15:47:22 Depressive disorder 84852521 Active Asha Chau (TERMED) null, [facility] STOCK REPAIRER 2 15:47:30 Problem Notes None recorded. Procedures Surgical History Date Name Laterality Status Provider Name and Address Organization Details Recorded Time 4 SUCTION DILATION & CURETTAGE (SURG) completed Yuki Díaz [facility]/GYN 07/03/2023 07:55:49 3 Date of Last Pap Smear completed Stephanie Cervantes [facility] STOCK REPAIRER 07/04/2022 13:50:17 1 Date of Last Colonoscopy completed Asha Mcgrann (TERMED) [facility]GYN 07/29/2021 15:48:04 7 Other completed Carmen Loomis [facility] STOCK REPAIRER 05/26/2023 10:05:20 [place] [address] [address] [facility],[address], [place], [address], Critical [facility] hospital STOCK REPAIRER 07/29/2021 16:03:28 [place] [address], [place], [address], Critical access hospital STOCK REPAIRER 07/29/2021 16:03:40 extraction [place] [address], [place], [address], Critical access hospital STOCK REPAIRER 07/29/2021 16:03:47 Imaging Results Imaging Date Name Status LastModified by Organization Details LastModified Time 06/07/2023 US, obstetric, transvaginal completed [email or web address] [address]ya [address], [place], [address], 06/11/2023 22:06:32 06/21/2023 US, obstetric, transvaginal completed [email or web address] [address], [place], [address], 06/22/2023 10:40:28 06/26/2023 US, obstetric, transvaginal completed [email or web address] [address], [place], [address], 06/27/2023 12:21:08 Procedure Notes None recorded. Medical Equipment None Reported. Allergies Allergen ID Allergen Name Allergen Category Reaction Reaction Severity Criticality Documentation Date Start Date Code Code System Note Provider Name and Address Organization Details Recorded Time 21290804 penicilli n G Not available hives Not available Not available 07/29/2021 7980 RxNorm Asha Mcgrann (TERMED) [place], [facility] STOCK REPAIRER 2 15:15:57 846193 Iodinated contrast media (substanc e) medicatio n hives Not available Not available 07/29/2021 41876 2004 SNOMED Ash[facility] Mcgrann (TERMED) [place] [facility] 2 15:16:18 482258 azithromy jaimee medicatio n hives Not available Not available 07/29/2021 70894 RxNorm Asha Mcgrann (TERMED) [place], [facility] STOCK REPAIRER 2 15:16:42 Medications Name Sig Start Date Stop Date Status Note LastModified by Organization Details LastModified Time cyclobenzap rine 10 mg tablet 03/09 completed Not Available Not Available Not Available lamotrigine 200 mg tablet TAKE 1 TABLET BY MOUTH DAILY 05/04 completed Not Available Not Available Not Available prednisone 20 mg tablet TAKE 2 TABLETS BY MOUTH DAILY active Not Available Not Available No t Available buspirone 10 mg tablet TAKE 1 TABLET BY MOUTH TWICE DAILY 03/09 completed Not Available Not Available Not Available hyoscyamine 0.125 mg sublingual tablet 01/04 /2024 completed Not Available Not Available Not Available norethindro ne acetate 1 mg-ethinyl estradiol 20 mcg tablet TAKE 1 TABLET BY MOUTH EVERY DAY 05/04 completed Not Available Not Available Not Available ibuprofen 600 mg tablet 03/09 completed Not Available Not Available Not Available propranolol 20 mg tablet TAKE 1 TABLET BY MOUTH THREE TIMES DAILY NEEDED 05/04 completed Not Available Not Available Not Available metformin ER 500 mg tablet,exte nded release 24 hr 05/04 completed Not Available Not Available Not Available drospirenon e 3 mg-ethinyl estradiol 0.03 mg tablet TAKE 1 TABLET BY MOUTH DAILY 03/09 completed Not Available Not Available Not Available cyclobenzap rine 5 mg tablet TAKE 1 TO 2 TABLETS BY MOUTH THREE TIMES DAILY NEEDED active Not Available Not Available No t Available bupropion HCl XL 300 mg 24 hr tablet, extended release TAKE 1 TABLET BY MOUTH DAILY 05/04 completed Not Available Not Available Not Available bupropion HCl XL 150 mg 24 hr tablet, extended release TAKE 1 TABLET BY MOUTH DAILY 05/04 completed Not Available Not Available Not Available + DHA daily active Not Available Not Available Not Available Linzess 145 mcg capsule 03/09 completed Not Available Not Available Not Available QuickVue At-Home COVID-19 Test kit TEST DIRECTED 06/06 completed Not Available Not Available Not Available Vitals Date Recorded Body height Body mass index (BMI) Body weight Systolic blood pressure Diastolic blood pressure Provider Name and Address Organization Details Last Updated DateTime 06/21/2023 167.64 cm 27.8 kg/m2 77145.32 g 110 mm[Hg] 70 mm[Hg] [facility] 12:10:17 Date Recorded Body height Systolic blood pressure Diastolic blood pressure Provider Name and Address Organization Details Last Updated DateTime 06/26/2023 167.64 cm 126 mm[Hg] 72 mm[Hg] Raffaele Silva(TERM) [facility] STOCK REPAIRER 06/26/2023 12:51:51 Social History Question Answer Notes LastModified by Organizat ion Details LastModified Time Tobacco [place] [address] [facility],[address], [place], [address], [place] - [facility] STOCK REPAIRER 07/29/2021 16:06:18 What Is Your Level Of Alcohol Consumption? None Former Social Drinking, Sober X 2 Years 2021 [email or web address] Information not available 07/29/2021 What Is Your Level Of Caffeine Consumption? Moderate 1-3 C/d Information not available 05/26/2023 Are You Currently Employed? 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 Domestic Partner Information not available 05/26/2023 Are You Sexually Active? Yes Information not available 05/26/2023 How Much Tobacco Do You Smoke? No Information not available 05/26/2023 Do You Use Any Illicit Or Recreational Drugs? No [email or web address] Information not available 03/09/2022 Are You Currently In School? Yes RN Information not available 05/26/2023 Sex: Unknown Functional Status Question Answer Note LastModified by Organizat ion Details LastModified Time What is your exercise level? Occasional Information not available 05/26/2023 Mental Status None recorded. Family History Relationship Description Onset Age of this Age Resolved Age Notes LastModified by Organization Details LastModified Time Mother Depressive disorder [email or web address] Not available 2021 15:49:13 Mother Anal polyp [email or web address] Not av ailable 05/04/2023 16:47:29 Mother Endometriosi s (clinical) [email or web address] Not available 05/04/2023 16:47:29 Maternal Grandmother Depressive disorder [email or web address] Not available 2021 15:49:13 Maternal Grandmother Endometrial hyperplasia [email or web address] Not available 05/04/2023 16:47:29 Maternal Grandmother Hysterectomy [email or web address] Not avail able 05/04/2023 16:47:29 Maternal Aunt Depressive disorder [email or web address] Not available 2021 15:49:13 Maternal Uncle Depressive disorder [email or web address] Not available 2021 15:49:13 Maternal Uncle Diabetes mellitus [email or web address] Not available 2021 15:49:38 Maternal Grandfather Diabetes mellitus 75 [email or web address] Not available 12/2021 10:40:50 Medical History Condition Response Psych- Anxiety Disorder Y ID-Other N Psych- Depression Y GI- Irritable Bowel Syndrome Y Gynecological History Statement/Question Response Sexually Active N History of Abnormal PAP N Age at Menarche: 20 Date of Last Colonoscopy 05/01/2020 Date of LMP 04/24/2023 Y History of Sexually Transmitted Infectio n N HPV Vaccine Complete Current Control Method Planning Pr egnancy Menstrual Cycle Length (days) 28 Urinary Incontinence Symptoms N Date of Last Pap Smear 06/29/2022 Obstetrics History GPAL:G 1 P 0 0 1 0 Type Value Multiple Births 0 Full Term 0 Induced 0 Spontaneous 1 Premature 0 Living 0 Ectopics 0 Total 1 Immunizations Vaccine Type Date Status Note Provider Nam e and Address Organization Details Recorded Time Hib, unspecified formulation 8 completed Africa Leidner null, [place] - [facility] REPAIR[facility] 06/29/2022 15:34:00 Hib, unspecified formulation 8 completed Africa Leidner null, [place] [facility]PA[facility] 06/29/2022 15:34:00 IPV 3 completed Africa Leidner null, [place] [facility]PA[facility] 06/29/2022 15:34:00 Influenza, MDCK, quadrivalent, PF 2 completed Africa Leidner null, [place] [facility]PA[facility] 06/29/2022 15:34:00 MMR 3 completed Africa Leidner null, [place] [facility]PA[facility] 06/29/2022 15:34:00 MMR 9 completed Africa Leidner null, [place] [facility]PA[facility] 06/29/2022 15:34:00 COVID-19, mRNA, LNP-S, PF, 30 mcg/0.3 mL dose 1 completed Africa Leidner null, [place] [facility]PA[facility] 06/29/2022 15:34:00 COVID-19, mRNA, LNP-S, PF, 30 mcg/0.3 mL dose 1 completed Africa Leidner null, [place] [facility]PA[facility] 06/29/2022 15:34:00 COVID-19, mRNA, LNP-S, PF, 30 mcg/0.3 mL dose 1 completed Africa Leidner null, [place] [facility]PA[facility] 06/29/2022 15:34:00 Tdap 0 completed Africa Leidner null, [place] [facility]PA[facility] 06/29/2022 15:34:00 Tdap 0 completed Africa Leidner [place], [place] [facility]PA[facility] 06/29/2022 15:34:00 varicella 3 completed Africa Leidner [place], [place] [facility]PA[facility] 06/29/2022 15:34:00 OPV 9 completed Africa Leidner null, [place] [facility] REPA[facility] 06/29/2022 15:34:00 OPV 8 completed Africa Leidner [place] [facility]PA[facility] 06/29/2022 15:34:00 OPV 8 completed Africa Leidner [place] [facility]PA[facility] 06/29/2022 15:34:00 HPV, unspecified formulation 5 completed Africa Leidner [place] [facility]PA[facility] 06/29/2022 15:34:00 Influenza, split virus, trivalent, preservative 1 completed Africa Leidner null, [place] [facility]PA[facility] 06/29/2022 15:34:00 Influenza, split virus, trivalent, PF 0 completed Africa Leidner [place] [facility]PA[facility] 06/29/2022 15:34:00 HPV, quadrivalent 3 completed Africa Leidner [place] [facility]PA[facility] 06/29/2022 15:34:00 HPV, quadrivalent 5 completed Africa Leidner [place] [facility]PA[facility] 06/29/2022 15:34:00 Hep B, adolescent or pediatric 8 completed Africa Leidner [place] [facility]PA[facility] 06/29/2022 15:34:00 Hep B, adolescent or pediatric 8 completed Africa Leidner [place] [facility]PA[facility] 06/29/2022 15:34:00 Hep B, adolescent or pediatric 9 completed Africa Leidner [place] [facility]PA[facility] 06/29/2022 15:34:00 Hep B, adolescent or pediatric 8 completed Africa Leidner [place] [facility]PA[facility] 06/29/2022 15:34:00 Hep A, ped/adol, 2 dose 1 completed Africa Leidner [place] [facility]PA[facility] 06/29/2022 15:34:00 Hep A, ped/adol, 2 dose 0 completed Africa Leidner [place] [facility]PA[facility] 06/29/2022 15:34:00 Meningococcal MCV4O 3 completed Africa Leidner [place] [facility]PA[facility] 06/29/2022 15:34:00 meningococcal MCV4P 6 completed Africa Leidner [place] [facility]PA[facility] 06/29/2022 15:34:00 DTaP 8 completed Africa Leidner [place] [facility]PA[facility] 06/29/2022 15:34:00 DTaP 3 completed Africa Leidner [place] [facility]PA[facility] 06/29/2022 15:34:00 DTaP 8 completed Africa Leidner [place] [facility]PA[facility] 06/29/2022 15:34:00 DTaP-Hib 8 completed Africa Leidner [place] [facility]PA[facility] 06/29/2022 15:34:00 DTaP-Hib 9 completed Africa Leidner [place] [facility] 06/29/2022 15:34:00 Influenza, split virus, quadrivalent, PF 1 completed Africa Skinner [place], [place] [facility]PA[facility] 06/29/2022 15:34:00 Influenza, split virus, quadrivalent, PF 9 completed Africa Skinner [place] [facility] 06/29/2022 15:34:00 Influenza, split virus, quadrivalent, PF 3 completed Carmen Vladislav null, [place] [facility]PA[facility] 06/02/2023 08:37:44 Past Encounters Encounter ID Performer Location Encounter Start Date Encounter Closed Date Diagnosis/Indication Diagnosis SNOMED-CT Code Diagnosis ICD10 Code Diagnosis Note [id number] VAL SHI MD [id number] ,[facility] [address] [place] [id number] 07/29/2021 15:03:45 07/29/2021 16:19:35 Polycystic ovary syndrome 620858995 E28.2 -plan labs today-cont inue on ocp and metformin. will call with results to determine if plan of care needs to change.-di scussed increased insulin resistance with pcos and risk of developing cardiovasc ular disease and recommend healthy diet and exercise to avoid this. 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 -on meds [id number] TERESITA JIANG MD [id number] ,[facility] [address] [place] [address] 03/09/2022 10:33:47 03/17/2022 15:56:21 Polycystic ovary syndrome 626668406 E28.2 recommend pt discontinu e metformin as she has had chronic and on going GI issues and this has not improved androgen levels or regulated menses trial of a different OCP as drosperino ne was causing multiple side effects Irritable bowel syndrome characterized by constipation 330491120 K58.1 likely due to metformin usewill discontinu e Mixed anxi ety and depressive disorder 709418047 F41.8 on meds and stable; was worse on Karla [id number] TERESITA JIANG MD [id number] [place]_[facility] [address] ,[address] [place] [address] 06/29/2022 15:32:03 06/29/2022 17:41:59 Screening for malignant neoplasm of cervix 982157844 Z12.4 pt due for pap smear Contracept ion care management 750032143 Z30.9 OCP use for prevention reviewed Polycystic ovary syndrome 468633136 E28.2 will stay off of metformin and continue OCPs Venereal d isease screening 960948983 Z11.3 [id number] TERESITA JIANG MD [id number] [facility]_ED [facility]JU [address] [place] [address], [address] [place] [id number] 05/04/2023 16:45:25 05/23/2023 15:16:51 Reproductive care management 460415749 Z31.9 Discussed preconcept ion recommenda tions with the patient. Discussed starting a vitamin and the importance of folic acid. Discussed and offered genetic carrier screening. No family history of concerns.D iscussed timing of intercours e and ovulation predictor kits. Reviewed the patient s current medication s and discussed risks, benefits, and alternativ es in . Recommend tracking menstrual cycles. Encouraged to call the clinic with a positive test. Encouraged enrolling in [employer] lity which can assist in lifestyle optimizati on Polycystic ovary syndrome 846180243 E28.2 pt stopped metformin about a year ago and felt much betternow off OCPs and menses monthly and normaldisc ussed JOHN misael to track cycles and predict ovulationr eviewed options for fertility management for associated oligoovula tion including clomid and letrazole Anxiety 81327673 F41.9 off medication and doing very wellreview safe options for treatment preconcept ion and [id number] TERESITA JIANG MD [id number] [facility] [address] [place] [address],[address] [address] [place] [address] 06/06/2023 16:41:33 06/07/2023 15:24:55 First trimester bleeding 7585320527 513786 O46.91 normal rising BhCG - plan to recheck todaysched ule ultrasound to determine location of given heavy bleeding 1 week agopt has had blood type checked : O+ [id number] VAL SHI MD [id number] [facility]_[address] ,[address] [place] [address] 06/07/2023 11:19:18 06/07/2023 12:03:39 Vaginal bleeding complicating early 466333411 O20.9 [id number] TERESITA JIANG MD [id number] [facility]_[address] ,[address] [place], [place] [address] 06/07/2023 13:54:55 06/20/2023 16:24:12 First trimester bleeding 7953656445 006787 O46.91 sono confimrs intrauteri ne pregnancyn ormal rising [facility] to recheck sono in 2 weeks to confirm viabilityp recautions given for on going risk of miscarriag ebld type : O+ [id number] NINO PENDLETON MD [id number] [place] ,[address] [place] [address] 06/21/2023 11:24:59 06/21/2023 12:41:48 Finding of viability of 361096809 O36.80X0 Gestation period, 6 weeks 83320638 Z3A.01 [id number] TERESITA JIANG MD [id number] [place] ,[address] [place] [address] 06/21/2023 12:07:45 07/07/2023 20:11:24 Threatened miscarriage 72251729 O20.0 no bleeding in > 1 weeksono reassuring : viable IUP with appropriat e growth from previous ultrasound schedule NOB patient advise sm amount of spotting ok but she should call with nay heavy bleedingRh + [id number] MD EZRA HARRINGTON004_SOU [place]_[facility] [place] [address] [place] [address],[place] [address] 06/26/2023 12:06:22 06/27/2023 14:05:35 Vaginal bleeding complicating early 991947042 O20.9 Gestation period, 7 weeks 38375565 Z3A.01 [id number] JUAN FIELD MD [id number] [place]_[facility] [place] [address] [place] [address] 06/26/2023 12:46:19 06/27/2023 14:06:00 Missed miscarriage [id number] O02.1 Surgery Scheduling : 1. Surgery: suction D&C 2. Reason/ind ication: missed 3. Instructor Ground Services? : none 4. Anesthesia : MAC 5. Location/a dmission status: [facility]/first available( tomorrow) 6. Time: 75 7. Instrument s: suction D&C 8. Rep?: none 9. Antibiotic s?: Doxycyline PO 200mg x 1 in preop 10. Preop: done today11. Postop: 2 weeks with whomever does their surgery Health Concerns Section Related Observation LastModified by Organization Detai ls LastModified Time None Recorded Concern Status LastModified by Organization Details LastModified Time None Recorded Advance Directives Directive None Recorded Payers Encounter Date Sequence Insurance Name Policy Number Policy Donaldson Covered Member ID Donaldson Member ID Guarantor Name 06/07/2023 1 [facility] [id number] Daysi Mcgraw Aracelisbacam [id number] Daysi Mcgraw Maria R 06/21/2023 1 [facility] [id number] Daysi Mcgraw Aracelisbacam [id number] Daysi Mcgraw Aracelisbacam 06/21/2023 1 [facility] [id number] Daysi Mcgraw [place] [id number] Daysi Mcgraw Aracelisbacam 06/26/2023 1 [facility] [id number] Daysi Mcgraw Aracelisbacam [id number] Daysi Mcgraw Maria R 06/26/2023 1 [facility] [facility] [id number] Daysi Mcgraw Aracelisbacam [id number] Daysi Mcgraw Maria R Notes Date Note Type Note Provider Name and Address Organization Details Recorded Time 06/07/2023 text/html ultrasound today for recent 1st trimester bleedingnormally rising BhCG sono: 5+2 gestational sac; no pole [place]no [place] [address], [place], [address], [place] [facility] STOCK REPAIRER 06/17/2023 14:15:29 06/21/2023 text/html follow up ultras ound for uncertain viability and 1st trimester bleedingsono : IUP at 6+6; very sm KIRBY c/w bleeding 2 wks ago no bleeding or pain pt reassured ; [place] [address], [place], [address], [place] [facility] STOCK REPAIRER 06/28/2023 14:00:09 06/26/2023 text/html 27yo G1 @ 7w4d b y 6wk U/S who presents with complaints of increased vaginal bleeding in early . She has been followed since 05/26 with serial hcgs which have been as follows:05/26: 201/29: 1061/31: 2812/2: 8052/6: 4170 She is Rh positive. Pelvic U/S 06/21 showed the followinw6d fetus, FCA 118bpm, KIRBY 1.5cm Today, pelvic U/S showed a CRL 1.2cm, corresponding to 7w3d, and no FCA. Today, the KIRBY measured 5.8cm Daysi reports her bleeding started after having intercourse Monday night. This became heavier Monday night. Now, it has tapered some. She denies pre/syncope. She denies fevers, chills, abdominal or pelvic pain. She denies constipation, diarrhea, dysuria. POC hgb [place] [address], [place], [address], [facility] STOCK REPAIRER 06/26/2023 14:11:08 OBGyn Episode No OBEpisode recorded.
--- OUTSIDE RECORDS SUMMARY | 2024-06-05 16:49 | XMS_ITS | Encounter Summary ---
Author Organization [facility] Address [address] [place] [address]. [place] [address] Care Team Providers Care Supervisor Metal Placing Name Role Phone Yael Neville MD Primary Care Provider [phone]- [phone] Yael Neville MD Unavailable [phone] Gabino Peña MD Unavailable [phone] Alison Yan PA-C Unavailable + [phone] Emmy Vance Hearing Aid Technician CARPET LOOM FIXER CADMIUM LIQUOR MAKER Unavailable [phone]- [phone] Encounter Details Date Type Department Care Team [...] AM CDT Legal Sex Female 3:37 AM POCKET GRINDER OPERATOR Gender Identity Female 08/26/2020 11:58 AM CDT Sexual Orientation Choose not to disclose 2020 11:58 AM CDT documented as of this encounter Plan of Treatment Upcoming Encounters Date Type Department Care Team (Late st Contact Info) Description 06/19/2024 12:00 PM POCKET GRINDER OPERATOR Infusion Therapy Visit [facility] [address] [address] [address] [place] [address] Jeff Wong MD [facility] [address] [place] [address] 06/24/2024 9:00 AM POCKET GRINDER OPERATOR Infusion Therapy Visit [facility] [address] [place] [address] [place] [address] Jeff Wong MD [facility] [address] [place] [address] 06/26/2024 2:00 PM POCKET GRINDER OPERATOR Infusion Therapy Visit [facility] [address] [address] [address] [place] [address] Jeff Wong MD [facility] [address] [place] [address] documented as of this encounter Visit Diagnoses Not on filedocumented in this encounter Additional Health Concerns Assessment Noted Time PHQ-9 Depression Total Score: 1 10/30/19 21 7:05 AM CDT documented as of this encounter Care Teams Supervisor Metal Placing Relationship Specialty Start Date End Date Yael Neville MD [address] [place] [address] [place] [address] PCP - General Internal Medicine 04/11/16 [place] [address] [place] [address] [place] [address] Assigned PCP 06/13/16 03/22/24 Gabino Peña MD [address] [place] [address] Assigned Heart and Vascular Provider 02/21/20 07/03/21 Alison Yan PA-C [address] [place] [address] Assigned Sleep Provider 07/15/20 2 Emmy Vance Cnp, APRN CNP [facility] [place] [address] [place] [address] Nurse Practitioner Nurse Practitioner 08/26/20 documented as of this encounter
--- OUTSIDE RECORDS SUMMARY | 2024-06-05 16:49 | XMS_ITS | Encounter Summary ---
Author Organization [facility] Address [address] [place] [address]. [place] [address] Care Team Providers Care Parking Enforcer Name Role Phone Yael Neville MD Primary Care Provider [phone]- [phone] Yael Neville MD Unavailable [phone] Gabino Peña MD Unavailable [phone] Alison YanC Unavailable + [phone] Emmy Vance Document Management Specialist GIS PROGRAMMER DRIVER UTILITY WORKER Unavailable [phone]- [phone] Reason for Visit * Reason Comments Medication Refill Encounter Details Date Type Department Care Team (Late st Contact Info) Description 07/16/2020 [facility] Jacek [address] [place] [address] [address] [place] [address] Yael Neville MD [address] [place] [address] [place] [address] Medication Refill Social History [...] AM CDT Legal Sex Female 3:37 AM TANK CAR REPAIRER Gender Identity Female 08/26/2020 11:58 AM CDT Sexual Orientation Choose not to disclose 2020 11:58 AM CDT documented as of this encounter Miscellaneous Notes * Telephone Encounter - Liyah Sosa RN - 07/16/2020 10:35 AM CDT Prescription approved per [facility], [facility] or [facility] refill protocol. Liyah Centeno - Registered Nurse [facility] documented in this encounter Plan of Treatment Upcoming Encounters Date Type Department Care Team (Late st Contact Info) Description 06/19/2024 12:00 PM TANK CAR REPAIRER Infusion Therapy [place] [address] [place] [place] [address] Jeff Wong MD [facility] [address] [place], [place] [address] 06/24/2024 9:00 AM TANK CAR REPAIRER Infusion Therapy Visit [place] [address] [address] [place] [address] Jeff Wong MD [facility] [address] [place], [place] [address] 06/26/2024 2:00 PM TANK CAR REPAIRER Infusion Therapy Visit [place] [address] [address] [place] [address] Jeff Wong MD [facility] [address] [place], [place] [address] documented as of this encounter Visit Diagnoses Diagnosis Suspected COVID-19 virus infection documented in this encounter Additional Health Concerns Assessment Noted Time PHQ-9 Depression Total Score: 16 020 8:26 AM CDT documented as of this encounter Care Teams Parking Enforcer Relationship Specialty Start Date End Date Yael Neville MD [address] [place] [address] [place] [address] PCP - General Internal Medicine 04/11/16 Yael Neville MD [address] [place] [address] [place] [address] Assigned PCP 06/13/16 03/22/24 Gabion Peña MD [address] [place] [address] Assigned Heart and Vascular Provider 02/21/20 07/03/21 Alison Yan PA-C [address] [place] [address]3025 Assigned Sleep Provider 07/15/20 2 Emmy Vance Cnp, MARU DRIVER UTILITY WORKER [facility] [place] [address] [place] [address] Nurse Practitioner Nurse Practitioner 08/26/20 documented as of this encounter
--- OUTSIDE RECORDS SUMMARY | 2024-06-05 16:49 | XMS_ITS | Encounter Summary ---
Author Organization [facility] Address [address] [place] [address]. [place] [address] Care Team Providers Care Import Coordinator Name Role Phone Yael Neville MD Primary Care Provider [phone]- [phone] Yael Neville MD Unavailable [phone] Gabino Peña MD Unavailable [phone] Alison Yan PA-C Unavailable [phone] Emmy Vance Water Filterer CERTIFIED MEDICAL CODING SPECIALIST OCCUPATIONAL THERAPY DIRECTOR Unavailable [phone]- [phone] Encounter Details Date Type Department Care Team (Late st Contact Info) Description 12/11/2020 Orders Only [facility] Jacek [address] [place] [address] [place] [address] [place] [address] [place] [address] Social History Tobacco Use [...] AM CDT Legal Sex Female 3:37 AM THERAPY AIDE Gender Identity Female 08/26/2020 11:58 AM CDT Sexual Orientation Choose not to disclose 2020 11:58 AM CDT documented as of this encounter Plan of Treatment Upcoming Encounters Date Type Department Care Team (Late st Contact Info) Description 06/19/2024 12:00 PM THERAPY AIDE Infusion Therapy Visit [place] [address] [place] [address] [place] [address] Jeff Wong MD [facility] [address] [place], [place] [address] 06/24/2024 9:00 AM THERAPY AIDE Infusion Therapy Visit [facility] [address] [address] [place] [address] Jeff Wong MD [facility] [address] [place] [address] 06/26/2024 2:00 PM THERAPY AIDE Infusion Therapy Visit [place] [address] [address] [place] [address] Jeff Wong MD [facility] [address] [place], [place] [address] documented as of this encounter Visit Diagnoses Not on filedocumented in this encounter Additional Health Concerns Assessment Noted Time PHQ-9 Depression Total Score: 1 10/30/19 21 7:05 AM CDT documented as of this encounter Care Teams Import Coordinator Relationship Specialty Start Date End Date Yael Neville MD [address] [place] [address] [place] [address] PCP - General Internal Medicine 04/11/16 Yael Neville MD [address] [facility] [place] [address] Assigned PCP 06/13/16 03/22/24 Gabino Peña MD [address] [place] [address]27[address] Assigned Heart and Vascular Provider 02/21/20 07/03/21 Alison Yan PA-C [address] [place] [address] Assigned Sleep Provider 07/15/20 2 Emmy Vance Cnp, MARU OCCUPATIONAL THERAPY DIRECTOR [employer] [facility] [place] [address] [place] [address] Nurse Practitioner Nurse Practitioner 08/26/20 documented as of this encounter
--- OUTSIDE RECORDS SUMMARY | 2024-06-05 16:49 | XMS_ITS | Encounter Summary ---
Author Organization [facility] Address [address] [place] [address]. [place] [address] Care Team Providers Care Wrapper And Preserver Name Role Phone Yael Neville MD Primary Care Provider [phone]- [phone] Yael Neville MD Unavailable [phone] Emmy Vance Asset Management Analyst LIVE TRUCK TECHNICIAN HOT WOUND SPRING PRODUCTION SUPERVISOR Unavailable + [phone] Encounter Details Date Type Department Care Team (Late st Contact Info) Description 07/28/2021 MyC Medical Advice [address] [address] Keya Jamison RN Social History [...] AM CDT Legal Sex Female 3:37 AM TOOLING ENGINEER Gender Identity Female 08/26/2020 11:58 AM CDT Sexual Orientation Choose not to disclose 2020 11:58 AM CDT documented as of this encounter Plan of Treatment Upcoming Encounters Date Type Department Care Team (Late st Contact Info) Description 06/19/2024 12:00 PM TOOLING ENGINEER Infusion Therapy Visit [facility] [address] [place] [address] [place] [address] Jeff Wong MD [facility] [address] [place] [address] 06/24/2024 9:00 AM TOOLING ENGINEER Infusion Therapy Visit [facility] [address] [place] [address] [place] [address] Jeff Wong MD [facility] [address] [place] [address] 06/26/2024 2:00 PM TOOLING ENGINEER Infusion Therapy Visit [place] [address] [place] [address] [place] [address] Jeff Wong MD [facility] [address] [place] [address] documented as of this encounter Visit Diagnoses Not on filedocumented in this encounter Additional Health Concerns Assessment Noted Time PHQ-9 Depression Total Score: 1 10/30/19 21 7:05 AM CDT documented as of this encounter Care Teams Wrapper And Preserver Relationship Specialty Start Date End Date Yael Neville MD [address] [place] [address] [place] [address] PCP - General Internal Medicine 04/11/16 Yael Neville MD [address] [place] [address] [place] [address] Assigned PCP 06/13/16 03/22/24 Emmy Vance Cnp, LIVE TRUCK TECHNICIAN HOT WOUND SPRING PRODUCTION SUPERVISOR [employer] [facility] [place] [address] [place] [address] Nurse Practitioner Nurse Practitioner 08/26/20 documented as of this encounter
--- OUTSIDE RECORDS SUMMARY | 2024-06-05 16:49 | XMS_ITS | Encounter Summary ---
Author Organization [facility] Address [address] [place] [address]. [place] [address] Care Team Providers Care Cassandra Consultant Name Role Phone Yael Neville MD Primary Care Provider [phone]- [phone] Yael Neville MD Unavailable [phone] Gabino Peña MD Unavailable [phone] Alison Yan PA-C Unavailable + [phone] Emmy Vance Stone Finisher PATIENT SUPPORT ASSOCIATE EDGE STITCHER Unavailable [phone] Encounter Details Date Type Department Care Team [...] AM CDT Legal Sex Female 3:37 AM BROADCASTER Gender Identity Female 08/26/2020 11:58 AM CDT Sexual Orientation Choose not to disclose 2020 11:58 AM CDT documented as of this encounter Plan of Treatment Upcoming Encounters Date Type Department Care Team (Late st Contact Info) Description 06/19/2024 12:00 PM BROADCASTER Infusion Therapy Visit [facility] [address] [place] [address] [place] [address] Jeff Wong MD [facility] [address] [place] [address] 06/24/2024 9:00 AM BROADCASTER Infusion Therapy Visit [facility] [address] [place] [address] [place] [address] Jeff Wong MD [facility] [address] [place] [address] 06/26/2024 2:00 PM BROADCASTER Infusion Therapy Visit [place] [address] [place] [address] [place] [address] Jeff Wong MD [facility] [address] , [address] [place] [address] documented as of this encounter Visit Diagnoses Not on filedocumented in this encounter Additional Health Concerns Assessment Noted Time PHQ-9 Depression Total Score: 3 08/28/19 21 7:02 AM CDT documented as of this encounter Care Teams Cassandra Consultant Relationship Specialty Start Date End Date Yael Neville MD [address] [place] [address] [place] [address] PCP - General Internal Medicine 04/11/16 Yael Neville MD [address] [place] [address] [place] [address] Assigned PCP 06/13/16 03/22/24 Gaibno Peña MD [address] [place] [address] Assigned Heart and Vascular Provider 02/21/20 07/03/21 Alison Yan PA-C [address] [place] [address] Assigned Sleep Provider 07/15/20 2 Emmy Vance Cnp, MARU EDGE STITCHER [employer] [facility] [place] [address] [place] [address] Nurse Practitioner Nurse Practitioner 08/26/20 documented as of this encounter
--- OUTSIDE RECORDS SUMMARY | 2024-06-05 16:49 | XMS_ITS | Encounter Summary ---
Author Organization [facility] Address [address] [place] [address]. [place] [address] Care Team Providers Care Anthropology Instructor Name Role Phone Yael Neville MD Primary Care Provider [phone]- [phone] Yael Neville MD Unavailable [phone] Gabino Peña MD Unavailable [phone] Alison Yan PA-C Unavailable + [phone] Emmy Vance Head Men'S Golf Coach BULK INTAKE WORKER WOOL MIXER Unavailable [phone] Encounter Details Date Type Department Care Team [...] AM CDT Legal Sex Female 3:37 AM RADIO REPAIRMAN Gender Identity Female 08/26/2020 11:58 AM CDT [...] st Contact Info) Description 06/19/2024 12:00 PM RADIO REPAIRMAN Infusion Therapy Visit [place] [address] [place] [address] Jeff Wong MD [facility] [address] [place] [address] 06/24/2024 9:00 AM RADIO REPAIRMAN Infusion Therapy Visit [place] [address] [place] [address] [place] [address] Jeff Wong MD [facility] [address] [place] [address] 06/26/2024 2:00 PM RADIO REPAIRMAN Infusion Therapy Visit [place] [address] [place] [address] [place] [address] Jeff Wong MD [facility] [address] [place], [place] [address] documented as of this encounter Visit Diagnoses Not on filedocumented in this encounter Additional Health Concerns Assessment Noted Time PHQ-9 Depression Total Score: 3 08/28/19 21 7:02 AM CDT documented as of this encounter Care Teams Anthropology Instructor Relationship Specialty Start Date End Date Yael Neville MD [address] [place] [address] [place] [address] PCP - General Internal Medicine 04/11/16 Yael Neville MD [address] [place] [address] [place] [address] Assigned PCP 06/13/16 03/22/24 Gabino Peña MD [address] [place] [address] Assigned Heart and Vascular Provider 02/21/20 07/03/21 Alison Yan PA-C [address] [place] [address] Assigned Sleep Provider 07/15/20 2 Emmy Vance Cnp, APRN CNP [facility] [place] [address] [place] [address] Nurse Practitioner Nurse Practitioner 08/26/20 documented as of this encounter
--- OUTSIDE RECORDS SUMMARY | 2024-06-05 16:49 | XMS_ITS | Encounter Summary ---
Author Organization [facility] Address [address] [place] [address]. [place] [address] Care Team Providers Care Database Management System Specialist Name Role Phone Yael Neville MD Primary Care Provider [phone] Yael Neville MD Unavailable Gabino Peña MD Unavailable [phone] Emmy Vance Counter Intelligence Technician LINE CONSTRUCTION SUPERINTENDENT MILITARY NURSE Unavailable [phone] Encounter Details Date Type Department Care Team (Late st Contact Info) Description 05/12/2021 MyC Medical Advice [facility] Jacek [address] [place] [address] Drive [address] [place] [address] [place] [address] [place] [address] [place] [address] Social History Tobacco Use [...] AM CDT Legal Sex Female 3:37 AM BANKING REPRESENTATIVE Gender Identity Female 08/26/2020 11:58 AM CDT Sexual Orientation Choose not to disclose 2020 11:58 AM CDT documented as of this encounter Miscellaneous Notes * Telephone Encounter - Arin Tay RN - 05/12/2021 10:[address] Nev[place], Please see message and advise Thank you Arin Tay RN on 05/12/2021 at 10:54 AM ING REPRESENTATIVE documented in this encounter Plan of Treatment Upcoming Encounters Date Type Department Care Team (Late st Contact Info) Description 06/19/2024 12:00 PM BANKING REPRESENTATIVE Infusion Therapy Visit [place] [address] [place] [address] [place] [address] Jeff Wong MD [facility] [address] [place], [place] [address] 06/24/2024 9:00 AM BANKING REPRESENTATIVE Infusion Therapy Visit [place] [address] [address] [place] [address] Jeff Wong MD [facility] [address] [place], [place] [address] 06/26/2024 2:00 PM BANKING REPRESENTATIVE Infusion Therapy Visit [facility] [address] [address] [place] [address] Jeff Wong MD [facility] [address] [place], [place] [address] documented as of this encounter Visit Diagnoses Not on filedocumented in this encounter Additional Health Concerns Assessment Noted Time PHQ-9 Depression Total Score: 1 10/30/19 21 7:05 AM CDT documented as of this encounter Care Teams Database Management System Specialist Relationship Specialty Start Date End Date Yael Neville MD [address] [place] [address] [place] [address] PCP - General Internal Medicine 04/11/16 Yael Neville MD [address] [place] [address] [place] [address] Assigned PCP 06/13/16 03/22/24 Gabino Peña MD [address] [place] [address] Assigned Heart and Vascular Provider 02/21/20 07/03/21 Emmy Vance Counter Intelligence Technician, LINE CONSTRUCTION SUPERINTENDENT MILITARY NURSE [facility] [place] [address] [place] [address] Nurse Practitioner Nurse Practitioner 08/26/20 documented as of this encounter
--- OUTSIDE RECORDS SUMMARY | 2024-06-05 16:49 | XMS_ITS | Encounter Summary ---
Author Organization [facility] Address [address] [place] [address]. [place] [address] Care Team Providers Care Candy Separator Enrobing Name Role Phone Yael Neville MD Primary Care Provider [phone]- [phone] Yael Neville MD Unavailable Frank Morrow Unavailable Unavailable Saul Freire Unavailable [phone] Gabino Peña MD Unavailable [phone] Alison Yan PA-C Unavailable [phone] Emmy Vance Night Time Babysitter BIOTECHNOLOGIST DELI CUTTER SLICER Unavailable [phone] Reason for Visit * Reason Onset Date Comments Refill Request 07/19/2018 Encounter Details Date Type Department Care Team (Late st Contact Info) Description 07/19/2018 MyC Refill M [facility] Jace[address] [place] [address] Drive [address] [place] [phone] Yael Neville MD [address] [place] [address] [place] [address] Refill Request Social History Tobacco Use [...] AM CDT Legal Sex Female 3:37 AM BUNCH BREAKER Gender Identity Female 08/26/2020 11:58 AM CDT Sexual Orientation Choose not to disclose 2020 11:58 AM CDT documented as of this encounter Plan of Treatment Upcoming Encounters Date Type Department Care Team (Late st Contact Info) Description 06/19/2024 12:00 PM BUNCH BREAKER Infusion Therapy Visit [facility] [address] [place] [address] [place] [address] Jeff Wong MD [facility] [address] [place], [place] [address] 06/24/2024 9:00 AM BUNCH BREAKER Infusion Therapy Visit [facility] [address] [address] [place] [address] Jeff Wong MD [facility] [address] [place], [place] [address] 06/26/2024 2:00 PM BUNCH BREAKER Infusion Therapy Visit [facility] [address] [address] [place] [address] Jeff Wong MD [facility] [address] [place], [place] [address] documented as of this encounter Visit Diagnoses Diagnosis 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 Polycystic ovaries documented in this encounter Additional Health Concerns Infection Onset Date Last Indicated Resolved Time Rule Out COVID-19 01/14/2020 01/14/2020 01/15/2020 10:31 PM CDT Rule Out COVID-19 04/06/2020 04/06/2020 04/07/2020 10:32 AM BUNCH BREAKER Rule Out COVID-19 06/11/2020 06/11/2020 06/11/2020 7:00 PM BUNCH BREAKER Assessment Noted Time PHQ-9 Depression Total Score: 17 019 11:09 AM BUNCH BREAKER documented as of this encounter Care Teams Candy Separator Enrobing Relationship Specialty Start Date End Date Yael Neville MD [address] [place] [address] [place] [address] PCP - General Internal Medicine 04/11/16 Yael Neville MD [address] [place] [address] [place] [address] Assigned PCP 06/13/16 03/22/24 Frank Morrow Personal Advocate & Liaison (PAL) 03/11/19 11/03/19 Saul Freire [facility] Sound Effects Person Primary Care - CC 12/02/1903/20 Gabino Peña MD [address] [place] [address] Assigned Heart and Vascular Provider 02/21/20 07/03/21 Alison Yan PA-C [address] [place] [address] Assigned Sleep Provider 07/15/20 2 Emmy Vance Cnp, BIOTECHNOLOGIST DELI CUTTER SLICER [facility] [place] [address] [place] [address] Nurse Practitioner Nurse Practitioner 08/26/20 documented as of this encounter
--- OUTSIDE RECORDS SUMMARY | 2024-06-05 16:49 | XMS_ITS | Encounter Summary ---
Author Organization [facility] Address [address] [place] [address]. [place] [address] Care Team Providers Care Pilot Teacher Name Role Phone Yael Neville MD Primary Care Provider [phone] Yael Neville MD Unavailable [phone] Gabino Peña MD Unavailable [phone] Alison Yan PAAshlyC Unavailable + [phone] Emmy Vance Jockey Room Custodian AREA CAPTAIN ELECTROPHONIC ENGINEER Unavailable [phone]- [phone] Encounter Details Date Type Department Care Team (Late st Contact Info) Description 12/10/2020 [facility] [address] [place] [phone] Lucie Dao Social History Tobacco Use [...] AM CDT Legal Sex Female 3:37 AM EMPLOYEE DEVELOPMENT MANAGER Gender Identity Female 08/26/2020 11:58 AM CDT Sexual Orientation Choose not to disclose 2020 11:58 AM CDT documented as of this encounter Plan of Treatment Upcoming Encounters Date Type Department Care Team (Late st Contact Info) Description 06/19/2024 12:00 PM EMPLOYEE DEVELOPMENT MANAGER Infusion Therapy [place] [address] [place] [address] Jeff Wong MD [facility] [address] [place], [place] [phone] 06/24/2024 9:00 AM EMPLOYEE DEVELOPMENT MANAGER Infusion Therapy Visit [place] [address] [place] [address] Jeff Wong MD [facility] [address] [place] [address] 06/26/2024 2:00 PM EMPLOYEE DEVELOPMENT MANAGER Infusion Therapy Visit [place] [address] [place] [address] Jeff Wong MD [facility] [address] [place] [address] documented as of this encounter Visit Diagnoses Not on filedocumented in this encounter Additional Health Concerns Assessment Noted Time PHQ-9 Depression Total Score: 1 10/30/19 21 7:05 AM CDT documented as of this encounter Care Teams Pilot Teacher Relationship Specialty Start Date End Date Yael Neville MD [address] [place] [address] [place] [address] PCP - General Internal Medicine 04/11/16 [place] [address] [place] [address] [place] [address] Assigned PCP 06/13/16 03/22/24 Gabino Peña MD [address] [place] [address] Assigned Heart and Vascular Provider 02/21/20 07/03/21 Alison Yan PA-C [address] [place] [address] Assigned Sleep Provider 07/15/20 2 Emmy Vance Cnp, APRN CNP [facility] [place] [address] [place] [address] Nurse Practitioner Nurse Practitioner 08/26/20 documented as of this encounter
--- OUTSIDE RECORDS SUMMARY | 2024-06-05 16:49 | XMS_ITS | Encounter Summary ---
Author Organization [facility] Address [address] [place] [address]. [place] [address] Care Team Providers Care Grad Intern Name Role Phone Yael Neville MD Primary Care Provider [phone] Yael Neville MD Primary Care Provider [phone] Yael Neville MD Unavailable [phone] Yael Neville MD Unavailable Frank Morrow Unavailable Unavailable Saul Freire Unavailable [phone] Gabino Peña MD Unavailable [phone] Alison Yan PA-C Unavailable [phone] Emmy Vance Weigh Boss DISTRIBUTION ANALYST OLIVE PICKER Unavailable [phone] Reason for Visit * Reason Onset Date Comments Refill Request 01/19/2015 ESCITALOPRAM 5MG Encounter Details Date Type Department Care Team (Late st Contact Info) Description 01/17/2015 Refill [facility] Jacek [address] [facility] [place] [address] Yael Neville MD [address] [facility] [place] [address] Refill Request (ESCITALOPRAM 5MG) Social History Tobacco Use Types Packs/Day Years Used Date Smoking Tobacco: Never Smokeless Tobacco: Never Alcohol Use Standard Drinks/Week Comments No 0 (1 standard drink = 0.6 oz pur e alcohol) Comments No Sex and Gender Information Value Date Recorded Sex Assigned at Female 08/26/2020 11:58 AM CDT Legal Sex Female 3:37 AM DIRECTOR OF HUMAN RESOURCES Gender Identity Female 08/26/2020 11:58 AM CDT Sexual Orientation Choose not to disclose 2020 11:58 AM CDT documented as of this encounter Miscellaneous Notes * Telephone Encounter - Sandy Deleon LPN - 01/21/2015 4:25 PM CDT Called and talked with Mom, Amirah and Daysi had run out of pills and pharmacy's system was down and so they will knot picker cloth pills soon. Daysi will call us back [...] # refills: 1 Last Office Visit with [facility] primary care provider: 11/04/2014 Last PHQ-9 score on record= PHQ-9 SCORE 11/04/2014 Total Score 8 documented in this encounter Plan of Treatment Upcoming Encounters Date Type Department Care Team (Late st Contact Info) Description 06/19/2024 12:00 PM DIRECTOR OF HUMAN RESOURCES Infusion Therapy Visit [facility] [place] [address] [place] [place] [address] Jeff Wong MD [facility] [address] [place] [address] 06/24/2024 9:00 AM DIRECTOR OF HUMAN RESOURCES Infusion Therapy Visit [place] [address] [place] [address] Jeff Wong MD [facility] [address] [place] [address] 06/26/2024 2:00 PM DIRECTOR OF HUMAN RESOURCES Infusion Therapy Visit [place] [address] [place] [place] [address] Jeff Wong MD [facility] [address] [place] [address] documented as of this encounter Visit Diagnoses Diagnosis LINDA (generalised anxiety disorder)- Primary Generalized anxiety disorder documented in this encounter Additional Health Concerns Infection Onset Date Last Indicated Resolved Time Rule Out COVID-19 01/14/2020 01/14/2020 01/15/2020 10:31 PM CDT Rule Out COVID-19 04/06/2020 04/06/2020 04/07/2020 10:32 AM DIRECTOR OF HUMAN RESOURCES Rule Out COVID-19 06/11/2020 06/11/2020 06/11/2020 7:00 PM DIRECTOR OF HUMAN RESOURCES documented as of this encounter Care Teams Grad Intern Relationship Specialty Start Date End Date Yael Neville MD [address] [place] [address] [place] [address] PCP - General Internal Medicine 06/12/12 03/28/16 Yael Neville MD [address] [place] [address] [place] [address] PCP - General Internal Medicine 04/11/16 Yael Neville MD [address] [place] [address] [place] [address] PCP - Assigned PCP 06/13/16 07/03/18 Yael Neville MD [address] [place] [address] [place] [address] Assigned PCP 06/13/16 03/22/24 Frank Morrow Personal Advocate & Liaison (PAL) 03/11/19 11/03/19 Saul Freire LSW Clinic Tube Puller Primary Care - CC 12/02/1903/20 Gabino Peña MD [address] [place] [address] Assigned Heart and Vascular Provider 02/21/20 07/03/21 Alison Yan PA-C [address] [place] [address] Assigned Sleep Provider 07/15/20 Emmy Alegre Cnp, DISTRIBUTION ANALYST OLIVE PICKER [employer] [facility] [place] [address] [place] [address] Nurse Practitioner Nurse Practitioner 08/26/20 documented as of this encounter
--- OUTSIDE RECORDS SUMMARY | 2024-06-05 16:49 | XMS_ITS | Encounter Summary ---
Author Organization [facility] Address [address] [place] [address]. [place] [address] Care Team Providers Care It Network Administrator Name Role Phone Yael Neville MD Primary Care Provider [phone] Yael Neville MD Unavailable Gabino Peña MD Unavailable [phone] Alison YanC Unavailable [phone] Emmy Vance Product Safety Coordinator STRIP TANK TENDER INSULATION MECHANIC Unavailable [phone] Encounter Details Date Type Department Care Team (Late st Contact Info) Description 07/21/2020 MyC Medical Advice [facility] Jacek [address] [facility] [address] [place] [address] Yael Neville MD [address] [place] [address] [place] [address] Social History Tobacco Use [...] AM CDT Legal Sex Female 3:37 AM HUMAN RESOURCES HR REPRESENTATIVE Gender Identity Female 08/26/2020 11:58 AM CDT Sexual Orientation Choose not to disclose 2020 11:58 AM CDT documented as of this encounter Plan of Treatment Upcoming Encounters Date Type Department Care Team (Late st Contact Info) Description 06/19/2024 12:00 PM HUMAN RESOURCES HR REPRESENTATIVE Infusion Therapy Visit [place] [address] [place] [address] Jeff Wong MD [facility] [address] [place], [place] [address] 06/24/2024 9:00 AM HUMAN RESOURCES HR REPRESENTATIVE Infusion Therapy Visit [facility] [address] [place] [address] Jeff Wong MD [facility] [address] [place] [address] 06/26/2024 2:00 PM HUMAN RESOURCES HR REPRESENTATIVE Infusion Therapy Visit [place] [address] [place] [address] Jeff Wong MD [facility] [address] [place], [place] [phone] documented as of this encounter Visit Diagnoses Not on filedocumented in this encounter Additional Health Concerns Assessment Noted Time PHQ-9 Depression Total Score: 16 020 8:26 AM CDT documented as of this encounter Care Teams It Network Administrator Relationship Specialty Start Date End Date Yael Neville MD [address] [place] [address] [place] [address] PCP - General Internal Medicine 04/11/16 Yael Neville MD [address] [facility] [place] [address] Assigned PCP 06/13/16 03/22/24 Gaibno Peña MD [address] [place] [address] Assigned Heart and Vascular Provider 02/21/20 07/03/21 Alison Yan PA-C [address] [place] [address] Assigned Sleep Provider 07/15/20 2 Emmy Vance Cnp, MARU INSULATION MECHANIC [employer] [facility] [place] [address] [place] [address] Nurse Practitioner Nurse Practitioner 08/26/20 documented as of this encounter
--- OUTSIDE RECORDS SUMMARY | 2024-06-05 16:49 | XMS_ITS | Encounter Summary ---
Author Organization [facility] Address [address] [place] [address]. [place] [address] Care Team Providers Care Event Marketing Manager Name Role Phone Yeal Neville MD Primary Care Provider [phone] Yael Neville MD Unavailable Gabino Peña MD Unavailable [phone] Alison Yan PA-C Unavailable [phone] Emmy Vance Food Expeditor FILLING OPERATOR OFFICIAL GREETER Unavailable [phone] Encounter Details Date Type Department Care Team (Late st Contact Info) Description 04/28/2021 [facility] [address] [facility] [address] [place] [address] Yael Neville MD [address] [place] [address] [place] [id number] Social History Tobacco Use Types Packs/Day Years [...] AM CDT Legal Sex Female 3:37 AM INCOME TAX ADMINISTRATOR Gender Identity Female 08/26/2020 11:58 AM CDT Sexual Orientation Choose not to disclose 2020 11:58 AM CDT documented as of this encounter Plan of Treatment Upcoming Encounters Date Type Department Care Team (Late st Contact Info) Description 06/19/2024 12:00 PM INCOME TAX ADMINISTRATOR Infusion Therapy Visit [facility] [address] [place] [address] [place] [address] Jeff Wong MD [facility] [address] [place], [place] [phone] 06/24/2024 9:00 AM INCOME TAX ADMINISTRATOR Infusion Therapy Visit [facility] [address] [place] [address] Jeff Wong MD [facility] [address] [place] [address] 06/26/2024 2:00 PM INCOME TAX ADMINISTRATOR Infusion Therapy Visit [place] [address] [place] [address] Jeff Wong MD [facility] [address] [place], [place] [phone] documented as of this encounter Visit Diagnoses Not on filedocumented in this encounter Additional Health Concerns Assessment Noted Time PHQ-9 Depression Total Score: 1 10/30/19 21 7:05 AM CDT documented as of this encounter Care Teams Event Marketing Manager Relationship Specialty Start Date End Date Yael Neville MD [address] [facility] [place] [address] PCP - General Internal Medicine 04/11/16 aYel Neville MD [address] [facility] [place] [address] Assigned PCP 06/13/16 03/22/24 Gabino Peña MD [address] [place] [address] Assigned Heart and Vascular Provider 02/21/20 07/03/21 Alison Yan PA-C [address] [place] [address] Assigned Sleep Provider 07/15/20 Emmy Alegre Cnp, MARU OFFICIAL GREETER [employer] [facility] [place] [address] [place] [address] Nurse Practitioner Nurse Practitioner 08/26/20 documented as of this encounter
--- OUTSIDE RECORDS SUMMARY | 2024-06-05 16:50 | XMS_ITS | Encounter Summary ---
Author Organization [facility] Address [address] [place] [address]. [place] [address] Care Team Providers Care Java Jsf Developer Name Role Phone Yael Neville MD Primary Care Provider [phone] Yael Neville MD Unavailable Frank Morrow Unavailable Unavailable Saul Freire Unavailable [phone] Gabino Peña MD Unavailable [phone] Alison Yan PA-C Unavailable [phone] Emmy Vance Developmental Training Counselor MARKET ASSET PROTECTION MANAGER OUTREACH PROFESSIONAL Unavailable [phone] Reason for Visit * Reason Comments Medication Refill Lamictal 100 mg tabl et Encounter Details Date Type Department Care Team (Late st Contact Info) Description 07/03/2019 Refill [facility] Jacek [address] [place] [address] [address] [place] [phone] Yael Neville MD [address] [place] [address] [place] [address] Medication Refill (Lamictal 100 [...] AM CDT Legal Sex Female 3:37 AM INFORMATICS DEVELOPER Gender Identity Female 08/26/2020 11:58 AM [...] positive test in last 12 months Meg Yancey RN RMATICS DEVELOPER documented in this encounter Plan of Treatment Upcoming Encounters Date Type Department Care Team (Late st Contact Info) Description 06/19/2024 12:00 PM INFORMATICS DEVELOPER Infusion Therapy Visit [place] [address] [place] [address] [place] [address] Jeff Wong MD [facility] [address] [place], [place] [phone] 06/24/2024 9:00 AM INFORMATICS DEVELOPER Infusion Therapy Visit [facility] [address] [place] [address] [place] [phone] Jeff Wong MD [facility] [address] [place] [address] 06/26/2024 2:00 PM INFORMATICS DEVELOPER Infusion Therapy Visit [place] [address] [place] [address] Jeff Wong MD [facility] [address] [place], [place] [phone] documented as of this encounter Visit Diagnoses Diagnosis Moderate major depression (H) Major depressive disorder, single episode, moderate Generalized anxiety disorder documented in this encounter Additional Health Concerns Infection Onset Date Last Indicated Resolved Time Rule Out COVID-19 01/14/2020 01/14/2020 01/15/2020 10:31 PM CDT Rule Out COVID-19 04/06/2020 04/06/2020 04/07/2020 10:32 AM INFORMATICS DEVELOPER Rule Out COVID-19 06/11/2020 06/11/2020 06/11/2020 7:00 PM INFORMATICS DEVELOPER Assessment Noted Time PHQ-9 Depression Total Score: 8 05/15/19 7:02 AM INFORMATICS DEVELOPER documented as of this encounter Care Teams Java Jsf Developer Relationship Specialty Start Date End Date Yael Neville MD [address] [place] [address] [place] [address] PCP - General Internal Medicine 04/11/16 Yael Neville MD [address] [place] [address] [place] [address] Assigned PCP 06/13/16 03/22/24 Frank Morrow Personal Advocate & Liaison (PAL) 03/11/19 11/03/19 Saul Freire LSW Clinic Environmental Tech Primary Care - CC 12/02/1903/20 Gabino Peña MD [address] [place] [address] Assigned Heart and Vascular Provider 02/21/20 07/03/21 Alison Yan PA-C [address] [place] [address] Assigned Sleep Provider 07/15/20 2 Emmy Vance Cnp, MARKET ASSET PROTECTION MANAGER OUTREACH PROFESSIONAL [employer] [facility] [place] [address] [place] [address] Nurse Practitioner Nurse Practitioner 08/26/20 documented as of this encounter
--- OUTSIDE RECORDS SUMMARY | 2024-06-05 16:50 | XMS_ITS | Encounter Summary ---
Author Organization [facility] Address [address] [place] [address]. [place] [address] Care Team Providers Care Installation Helper Name Role Phone Yael Neville MD Primary Care Provider [phone] Yael Neville MD Unavailable [phone] Frank Morrow Unavailable Unavailable Saul Freire Unavailable [phone] Gabino Peña MD Unavailable [phone] Ailson Yan PA-C Unavailable [phone] Emmy Vance Casual Shoe Inspector MAILER APPRENTICE STAKE SETTER Unavailable [phone] Reason for Visit * Reason Comments Medication Refill Encounter Details Date Type Department Care Team (Late st Contact Info) Description 06/26/2019 Refill [facility] Jacek [address] [place] [address] [address] [place] [address] Yael Neville MD [address] [place] [address] [place] [address] Medication Refill Social History [...] AM CDT Legal Sex Female 3:37 AM MEDICAL BILLING COORDINATOR Gender Identity Female 08/26/2020 11:58 AM CDT Sexual Orientation Choose not to disclose 2020 11:58 AM CDT documented as of this encounter Miscellaneous Notes * Telephone Encounter - Arin Tay RN - 06/27/2019 9:51 AM MEDICAL BILLING COORDINATOR Prescription approved per [facility] Refill Protocol. CAL BILLING COORDINATOR documented in this encounter Plan of Treatment Upcoming Encounters Date Type Department Care Team (Late st Contact Info) Description 06/19/2024 12:00 PM MEDICAL BILLING COORDINATOR Infusion Therapy Visit [place] [address] [place] [address] [place] [phone] Jeff Wong MD [facility] [address] [place], [place] [phone] 06/24/2024 9:00 AM MEDICAL BILLING COORDINATOR Infusion Therapy Visit [place] [phone] [place] [address] Jeff Wong MD [facility] [address] [place], [place] [phone] 06/26/2024 2:00 PM MEDICAL BILLING COORDINATOR Infusion Therapy Visit [facility] [address] [place] [address] Jeff Wong MD [facility] [address] [place], [place] [address] documented as of this encounter Visit Diagnoses Diagnosis 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 Polycystic ovaries documented in this encounter Additional Health Concerns Infection Onset Date Last Indicated Resolved Time Rule Out COVID-19 01/14/2020 01/14/2020 01/15/2020 10:31 PM CDT Rule Out COVID-19 04/06/2020 04/06/2020 04/07/2020 10:32 AM MEDICAL BILLING COORDINATOR Rule Out COVID-19 06/11/2020 06/11/2020 06/11/2020 7:00 PM MEDICAL BILLING COORDINATOR Assessment Noted Time PHQ-9 Depression Total Score: 8 05/15/19 7:02 AM MEDICAL BILLING COORDINATOR documented as of this encounter Care Teams Installation Helper Relationship Specialty Start Date End Date Yael Neville MD [facility] [place] [address] PCP - General Internal Medicine 04/11/16 Yael Neville MD [address] [place] [address] [place] [address] Assigned PCP 06/13/16 03/22/24 Frank Morrow Personal Advocate & Liaison (PAL) 03/11/19 11/03/19 Saul Freire LSW Clinic Nurse First Assist Primary Care - CC 12/02/1903/20 Gabino Peña MD [address] [place] [address] Assigned Heart and Vascular Provider 02/21/20 07/03/21 Alison Yan PA-C [address] [place] [address] Assigned Sleep Provider 07/15/20 2 Emmy Vance Casual Shoe Inspector, MARU STAKE SETTER [employer] [place] [address] [place] [address] Nurse Practitioner Nurse Practitioner 08/26/20 documented as of this encounter
--- OUTSIDE RECORDS SUMMARY | 2024-06-05 16:50 | XMS_ITS | Clinical Summary ---
[facility] Organization [facility] Address [address] [place] [address] Care Team Providers Care Credit Analyst Name Role Phone Yael Neville MD Primary Care Provider [phone] Source Comments You are receiving this document as you are listed as the primary care provider,follow-up provider, or the patient has been referred to you for consultation.This is in compliance with the Medicare and[facility] Cent[facility] EHR Incentive Program,which states Providers who transition their patient to another setting of careor provider of care or refers their patient to another provider of care shouldprovide summary care record for each transition of care or referral. [facility] Allergies Active Allergy Reactions Criticality Noted Date Comments Azithromycin Hives 06/06/2012 Iodinated Contrast Media Anaphylaxis High 06/06/2012 Penicillins Hives 06/06/2012 Medications Medication Sig Dispensed Refills Start Date End Date Status metFORMIN (AKA GLUCOPHAGE XR) 750 MG 24 hour release tabletIndications:PCO S (polycystic ovarian syndrome) ([facility]) Take 1 tablet by mouth daily (with dinner). 90 tablet 3 10/30/2013 Active escitalopram oxalate (AKA LEXAPRO) 10 MG tabletIndications:KYLEE KIM Oly September 11, 2014 10:08 AM Received Sig: Take 10 mg by mouth daily (every 24 hours). 08/01/2014 Active Drospirenone-Ethinyl Estradiol (PASHA) 3-0.03 MG tabletIndications:PCO S (polycystic ovarian syndrome) ([facility]) Take 1 tablet by mouth daily (every 24 hours). 84 tablet 0 07/13/2015 Active ibuprofen (MOTRIN) 600 MG tablet Take 1 Tablet (600 mg) by mouth every 6 hours as needed for Pain. 30 Tablet 10/28/2021 Active cyclobenzaprine (FLEXERIL) 10 MG tablet Take 1 Tablet (10 mg) by mouth three times a day as needed for Muscle Spasms. 10 Tablet 10/28/2021 Active Active Problems Problem Noted Date Diagnosed Date Acanthosis nigricans 04/17/2013 PCOS (polycystic ovarian syndrome) 06/15/2012 Insulin resistance 06/15/2012 BMI (body mass index), pediatric, 95-99% for age 0206/06/2012 Hirsutism 06/06/2012 Secondary amenorrhea 06/06/2012 Family History Medical History Relation Name Comments Polycystic Ovary Syndrome [Other] Maternal Aunt 1 Polycystic Ovary Syndrome [Other] Maternal Aunt 2 Diabetes, Type I Maternal Grandfather Diabetes, Type II Maternal Uncle Relation Name Status Comments Maternal Aunt 1 Maternal Aunt 2 Maternal Grandfather Maternal Uncle Social History Tobacco Use Types Packs/Day Years Used Date Smoking Tobacco: Never Sex and Gender Information Value Date Recorded Sex Assigned at Not on file Gender Identity Not on file Sexual Orientation Not on file Last Filed Vital Signs Vital Sign Reading Time Taken Comments Blood Pressure 123/92 10/28/2021 1:26 PM CDT Pulse 63 10/28/2021 1:26 PM CDT Temperature 37.3 C (99.2 F) 10/28/2021 1:26 PM CDT Respiratory Rate 16 10/28/2021 1:26 PM CDT Oxygen Saturation 97% 10/28/2021 1:26 PM CDT Inhaled Oxygen Concentration - - Weight 77.1 kg (170 lb) 07/13/2019 4:24 AM CDT Height 167.1 cm (5' 5.8) 09/11/2014 9:50 AM CDT Body Mass Index - - Plan of Treatment Health Maintenance Due Date Last Done Comments Cervical Cancer Screening Due 1997 Hep C Screening (Preventive Services) 1997 HIV Screening (Preventive Services) 2013 Adult Preventive Visit 08/24/2015 HepB (1) 2016 COVID-19 Vaccine ( season) 2023 09/29/2020, 08/31/2020 Influenza (#1) 2023 02/03/2011, 06/17/2009 DTaP/Tdap/Td (8 - Tdap) 10/09/2029 10/10/19 20, 09/03/2009, 01/06/2003, Additional history exists Zoster/Shingles (1 of 2) 08/24/2047 Hib Completed 02/01/1999, 01/30, 1997, Additional history exists IPV (Polio) Completed 12/16/2002, 08/30, 1997, Additional history exists HepA Completed 07/15/2010, 09/03/2009 HPV Vaccine Completed 03/03/2015, 0710/2014, 07/25/2012 MCV4 Completed 11/30/2015, 07/25/2012 Chlamydia Discontinued 10/28/2020 Pneumococcal Aged Out No longer eligi ble based on patient's age to complete this topic Care Teams Credit Analyst Relationship Specialty Start Date End Date Yael Neville MD [address] [facility] [place] [address] [facility] - General 06/06/12
--- OUTSIDE RECORDS SUMMARY | 2024-06-05 16:50 | XMS_ITS | Referral Summary ---
Author Organization [place] Address Formerly [facility] [place] [address] Care Team Providers Care Radioisotope Technologist Name Role Phone Yael Neville MD Primary Care Provider Emmy Vance Brewer Helper MULE PACKER ROLLING UP MACHINE OPERATOR Unavailable [phone] Encounters Date Type Department Care Team Description 06/04/2024 Travel 06/04/2024 8:22 PM CHILD'S NURSE - 06/04/2024 9:51 PM CHILD'S NURSE Emergency [facility] Emergency Dept [address] [place] [phone] Sterling Salas MD Right leg pain; state, incidental Discharge Disposition: Home or Self Care 05/27/2024 Travel 05/27/2024 9:17 PM CHILD'S NURSE - 05/27/2024 10:30 PM CHILD'S NURSE Hospital Encounter [facility] [address] [place] [address] Triston Jiménez MD Discharge Disposition: Home or Self Care 05/27/2024 Orders Only [facility] [address], [address] [place] [address] Jeff Wong MD Iron deficiency anemia, unspecified (Primary Dx); Anemia complicating in third trimester 05/21/2024 Medical Correspondence [facility] Information Management [address] [facility] [place] [address] Scan, Non-Provider 04/05/2024 Travel 04/05/2024 4:55 AM CHILD'S NURSE - 04/05/2024 5:54 AM CHILD'S NURSE Emergency [facility] Emergency Dept [address] [place] [address] Juan Mares MD Sore throat; Acute cough Discharge Disposition: Home or Self Care from Last 3 Months Allergies Active Allergy Reactions Criticality Noted Date Comments Azithromycin 11/21/2011 Hives Contrast Dye 04/04/2006 Difficulty breathing Penicillins 12/16/2002 Medications buPROPion (WELLBUTRIN XL) 300 MG 24 hr tablet Take 300 mg by mouth daily 08/04/2020 Active lamoTRIgine (LAMICTAL) 200 MG tablet Take 200 mg by mouth At Bedtime 08/15/2020 Active SUMAtriptan (IMITREX) 100 MG tablet TK 1 T PO AOS OF HEADACHE. MAY REPEAT IN 2 H PRN 01/01/2020 Active propranolol (INDERAL) 20 MG tablet Take 1 tablet (20 mg) by mouth 2 times daily 10/28/2020 Active ipratropium (ATROVENT) 0.06 % nasal sprayIndication s:Suspected COVID-19 virus infection [place] 2 sprays in nostril 4 times daily 15 mL 1 02/22/2021 Active guaiFENesin 1200 MG [id number] :Suspected COVID-19 virus infection Take 1 tablet (1,200 mg) by mouth 2 times daily 60 tablet 02/22/2021 Active metFORMIN (GLUCOPHAGE XR) 500 MG 24 hr tabletIndicatio ns:PCOS (polycystic ovarian syndrome) TAKE 2 TABLETS BY MOUTH EVERY EVENING WITH DINNER 180 tablet 10/28/2021 Active Active Problems Problem Noted Date Diagnosed Date Iron deficiency anemia, unspecified 05/27/2024 Anemia complicating in third trimester 05/27/2024 Encounter for triage in patient 025 History of prolonged Q-T interval on ECG [...] Dates Next Due COVID-19 MONOVALENT 12+ (Pfizer) 09/29/2020,0506/2020 DTAP (<7y) 01/06/2003, 9,02/21/1998,12/23,1997 HEPA 07/15/2010,09/03/2009 HIB (PRP-T) 02/01/1999, 8,1997,11/03 HPV 03/03/2015,11/04/2014,07/25/2012 HepB 02/01/1999, 8,1997,09/13 Influenza (H1N1) 05/02/2009 Influenza (IIV3) PF 02/03/2011,06/17/2009 MMR 12/16/2002,02/01/1999 Mantoux Tuberculin Skin Test 12/07/2021,08/15/19 18 Meningococcal ACWY (Menactra ) 11/30/2015,07/25/2012 OPV, trivalent, [...] AM CDT Legal Sex Female 3:37 AM CHILD'S NURSE Gender Identity Female 08/26/2020 11:58 AM CDT Sexual Orientation Choose not to disclose 2020 11:58 AM CDT Last Filed Vital Signs Vital Sign Reading Time Taken Comments Blood Pressure 125/79 06/04/2024 7:54 PM CHILD'S NURSE Pulse 85 06/04/2024 7:53 PM CHILD'S NURSE Temperature 37.2 C (99 F) 06/04/2024 7:53 PM CHILD'S NURSE Respiratory Rate 18 06/04/2024 7:53 PM CHILD'S NURSE Oxygen Saturation 98% 06/04/2024 7:53 PM CHILD'S NURSE Inhaled Oxygen Concentration - - Weight 100.9 kg (222 lb 7.1 oz) 06/04/2024 7:53 PM CHILD'S NURSE Height 167.6 cm (5' 6) 06/04/2024 7:53 PM CHILD'S NURSE Body Mass Index 35.9 06/04/2024 7:53 PM CHILD'S NURSE Plan of Treatment Upcoming Encounters Date Type Department Care Team (Late st Contact Info) Description 06/19/2024 12:00 PM CHILD'S NURSE Infusion Therapy Visit [address] [place] [address] Jeff Wong MD [facility] [address] [place] [address] 06/24/2024 9:00 AM CHILD'S NURSE Infusion Therapy Visit [facility] [address] [place] [phone] Jeff Wong MD [facility] [address] [place] [address] 06/26/2024 2:00 PM CHILD'S NURSE Infusion Therapy Visit [facility] [address] [place] [phone] Jeff Wong MD [facility] [address] [place] [address] Procedures Procedure Name Priority Date/Time Associated Diagnosis Comments US LOWER EXTREMITY VENOUS DUPLEX RIGHT STAT 06/04/2024 9:26 PM CHILD'S NURSE LAB RESULT - HIM SCAN 05/20/2024 12:00 AM CHILD'S NURSE XRAY IMAGING - HIM SCAN 04/08/2024 12:00 AM CHILD'S NURSE GROUP A STREPTOCOCCUS PCR THROAT SWAB STAT 04/05/2024 4:55 AM CHILD'S NURSE INFLUENZA A/B, RSV AND SARS-COV2 PCR STAT 04/05/2024 4:55 AM CHILD'S NURSE CHLAMYDIA TRACHOMATIS/NEISSERI A GONORRHOEAE BY PCR Routine 06/29/2022 4:48 PM CHILD'S NURSE Encounter for screening for infections with a predominantly sexual mode of transmission GYNECOLOGIC CYTOLOGY Routine 06/29/2022 4:06 PM CHILD'S NURSE Encounter for screening for malignant neoplasm of cervix [ICD-10-CM] HIV ANTIGEN ANTIBODY COMBO Routine 10/28/2020 4:20 PM CDT Screening for HIV (human immunodeficiency virus) HEPATITIS C SCREEN REFLEX TO HCV RNA QUANT AND GENOTYPE Routine 10/28/2020 4:20 PM CDT Need for hepatitis C screening test from Last 3 Months or Most Recently Relevant to Health Maintenance Results * US Lower Extremity Venous Duplex Right (06/04/2024 9:26 PM CHILD'S NURSE) Anatomical Region Laterality Modality Lower Extremity Ultrasound 06/04/2024 9:26 PM CHILD'S NURSE Impressions 06/04/2024 9:34 PM CHILD'S NURSE IMPRESSION: 1. No deep venous thrombosis in the right lower extremity. Narrative 06/04/2024 9:34 PM CHILD'S NURSE EXAM: US LOWER EXTREMITY VENOUS DUPLEX RIGHT LOCATION: [facility] DATE: 06/04/2024 INDICATION: 31 weeks , leg pain and swelling COMPARISON: None. TECHNIQUE: Venous Duplex ultrasound of the right lower extremity with and without compression, augmentation and duplex. Color flow and spectral Doppler with waveform analysis performed. FINDINGS: Exam includes the common femoral, femoral, popliteal, and contralateral common femoral veins as well as segmentally visualized deep calf veins and greater saphenous vein. RIGHT: No deep vein thrombosis. No superficial thrombophlebitis. No popliteal cyst. Procedure Note Cody Kumar MD - 06/04/2024 EXAM: US LOWER EXTREMITY VENOUS DUPLEX RIGHT LOCATION: [facility] DATE: 06/04/2024 INDICATION: 31 weeks , leg pain and swelling COMPARISON: None. TECHNIQUE: Venous Duplex ultrasound of the right lower extremity with andwithout compression, augmentation and duplex. Color flow and spectralDoppler with waveform analysis performed. FINDINGS: Exam includes the common femoral, femoral, popliteal, andcontralateral common femoral veins as well as segmentally visualized deepcalf veins and greater saphenous vein. RIGHT: No deep vein thrombosis. No superficial thrombophlebitis. Nopopliteal cyst. IMPRESSION: 1. No deep venous thrombosis in the right lower extremity. Sterling Salas MD G US ORDERABLES Final R esult * Lab Result - HIM Scan (05/20/2024 12:00 AM CHILD'S NURSE) 05/20/2024 Provider Outside NON-BEAKER LAB TESTING Final Result * Xray Imaging - HIM Scan (04/08/2024 12:00 AM CHILD'S NURSE) Anatomical Region Laterality Modality Other 04/08/2024 us Provider Outside IMG DIAGNOSTIC IMAGING ORDERABL ES Final Result * Influenza A/B, RSV and SARS-CoV2 PCR (COVID-19) Nose (04/05/2024 4:55 AM CHILD'S NURSE) Influenza A PCR Negative Negative 04/05/2024 5:41 AM CHILD'S NURSE [facility] Influenza B PCR Negative Negative 04/05/2024 5:41 AM CHILD'S NURSE [facility] RSV PCR Negative Negative 04/05/2024 5:41 AM CHILD'S NURSE [facility] SARS CoV2 PCR Negative Negative 04/05/2024 5:41 AM CHILD'S NURSE [facility] Comment:NEGATIVE: SARS-CoV-2 (COVID-19) RNA not detected, presumed negative. Swab NASAL STRUCTURE / Unknown Non-blood Collection / Unknown 04/05/2024 4:55 AM CHILD'S NURSE 04/05/2024 5:02 AM CHILD'S NURSE Narrative [facility] - 04/05/2024 5:41 AM CHILD'S NURSE Testing was performed using the Xpert Xpress CoV2/Flu/RSV Assay on the [employer] GeneXpert Instrument. This test should be ordered [...] management. This test was validated by the [facility] [email or web address]. These laboratories are certified under the Clinical Laboratory Improvement Amendments of 1988 (CLIA-88) as qualified to perfom high complexity laboratory testing. Juan Mares MD LAB - MICRO GENER AL ORDERABLES Final Result [facility] [address] [facility]1st floor, no room number) [place] [address] * Group A Streptococcus PCR Throat Swab (04/05/2024 4:55 AM CHILD'S NURSE) Pathologist [facility] Group A strep by PCR Not Detected Not Detected 04/05/2024 5:29 AM CHILD'S NURSE LABORATORY Swab STRUCTURE OF ANTERIOR PORTION OF NECK / Unknown Non-blood Collection / Unknown 04/05/2024 4:55 AM CHILD'S NURSE 04/05/2024 5:02 AM CHILD'S NURSE Narrative LABORATORY - 04/05/2024 5:29 AM CHILD'S NURSE The Xpert Xpress Strep A test, performed on the [employer], is a rapid, qualitative in vitro [...] reaction (PCR) to detect Streptococcus pyogenes DNA. Juan Mares MD LAB - MICRO GENER AL ORDERABLES Final Result Performing Organization Address [facility] Co de Phone Number [facility] [address] [facility] (1st floor, no room number) [place] [address] * Chlamydia trachomatis/Neisseria gonorrhoeae by PCR (06/29/2022 4:48 PM CHILD'S NURSE) Chlamydia Trachomatis Negative Negative 06/30/2022 12:02 PM CHILD'S NURSE [facility] Comment: Negative for C. trachomatis rRNA by macroeconomics professor mediated amplification. A negative result by macroeconomics professor mediated amplification does not preclude the presence of infection because results are dependent on proper and adequate collection, absence of inhibitors and sufficient rRNA to be detected. Neisseria gonorrhoeae Negative Negative 06/30/2022 12:02 PM CHILD'S NURSE [facility] Comment:Negative for N. gono rrhoeae rRNA by macroeconomics professor mediated amplification. A negative result by macroeconomics professor mediated amplification does not preclude the presence of C. trachomatis infection because results are dependent on proper and adequate collection, absence of inhibitors and sufficient rRNA to be detected. Swab VAGINAL STRUCTURE / Unknown Non-blood Collection / Unknown 06/29/2022 4:48 PM CHILD'S NURSE 06/29/2022 8:05 PM CHILD'S NURSE Rabia Aguilar MD LAB - MICRO G ENERAL ORDERABLES Final Result [facility] Inf. Diseases Diag. Lab [address] [facility] [address] [facility] [address] [address] [place] [address], [facility] [phone] * Gynecologic Cytology (PAP) (06/29/2022 4:06 PM CHILD'S NURSE) Interpretation Negative for Intraepithelial Lesion or Malignancy (NILM) 07/04/2022 10:47 AM [facility] Comment Papanicolaou Test Limitations: Cervical cytology is a screening test with limited sensitivity, and regular screening is critical for cancer prevention. Pap tests are primarily effective for the diagnosis/prevent ion of squamous cell carcinoma, not adenocarcinoma or other cancers. 07/04/2022 10:47 AM CHILD'S NURSE [facility] Specimen Adequacy Satisfactory for evaluation, endocervical/holcomb sformation zone component present 07/04/2022 10:47 AM [facility] Clinical Information none 07/04/2022 10:47 AM CHILD'S NURSE [facility] LMP/Menopause Date 06/04/22 07/04/2022 10:47 AM CHILD'S NURSE [facility] Reflex Testing Yes if ASCUS 07/05/19 10:47 AM CHILD'S NURSE [facility] Previous Abnormal? No 07/04/2022 10:47 AM CHILD'S NURSE [facility] Previous Abnormal Diagnosis negative 07/04/2022 10:47 AM CHILD'S NURSE [facility] Performing Labs The technical component of this testing was completed at [facility] 07/04/2022 10:47 AM [facility] Brushing ENDOCERVICAL STRUCTURE / Unknown 06/29/2022 4:06 PM CHILD'S NURSE 06/29/2022 8:03 PM CHILD'S NURSE Rabia RECINOS - TYRONE AP Final Result [facility] [address] [address], [facility] [phone] * HIV Antigen Antibody Combo (10/28/2020 4:20 PM CDT) HIV Antigen Antibody Combo Nonreactive NR^Nonrea ctive 10/29/2020 4:34 PM CDT [facility] Comment:HIV-1 p24 Ag & HIV-1 /HIV-2 Ab Not Detected Blood 10/28/2020 4:20 PM CDT 10/28/2020 4:21 PM CDT Yael Neville MD LAB - BLOOD ORDERABLES Cary l Result Performing Organization Address City/[facility]/ZIP Co de Phone Number [address] [address] * Hepatitis C Screen Reflex to HCV RNA Quant and Genotype (10/28/2020 4:20 PM CDT) Hepatitis C Antibody Nonreactive NR^Nonre active 10/29/2020 4:41 PM CDT [facility] Comment: Assay performance characteristics have not been established for newborns, infants, and children Blood 10/28/2020 4:20 PM CDT 10/28/2020 4:21 PM CDT Yael Neville MD LAB - BLOOD ORDERABLES Cary l Result [facility] [address] [place] [address] from Last 3 Months or Most Recently Relevant to Health Maintenance Insurance [facility] CORE [facility] [employer] [facility] Address: [address] [address] [facility] Advance Directives For more information, please contact: [phone] * Full Code (Latest Code Status on File) Date Activated Date Inactivated Comments 10/10/2019 12:38 PM 10/11/2019 4:37 PM Question Answer Comments Code status determined by: Discussion with charlene nt/legal decision maker Care Teams Radioisotope Technologist Relationship Specialty Start Date End Date Yael Neville MD [address] [place] [address] PCP - General Internal Medicine 04/11/16 Emmy Vance Brewer Helper, MULE PACKER ROLLING UP MACHINE OPERATOR [employer] [address] [place] [address] Nurse Practitioner Nurse Practitioner 08/26/20
--- OUTSIDE RECORDS SUMMARY | 2024-06-05 16:50 | XMS_ITS | Encounter Summary ---
Author Organization [place] Address [address] [place] [address]. [place] [address] Care Team Providers Care Glove Stitcher Name Role Phone Yael Neville MD Primary Care Provider [phone] Yael Neville MD Unavailable Frank Morrow Unavailable Unavailable Saul Freire Unavailable [phone] Gabino Peña MD Unavailable [phone] Alison Yan PA-C Unavailable [phone] Emmy Vance Cashier Assistant AIRCRAFT PARTS ASSEMBLER GRAVITY FLOW IRRIGATOR Unavailable [phone] Reason for Visit * Reason Comments Medication Refill Encounter Details Date Type Department Care Team (Late st Contact Info) Description 09/07/2019 Refill [facility] [address] [place] [address] Drive [address] [place] [address] Yael Neville MD [address] [place] [address] [place] [address] Medication Refill Social History [...] AM CDT Legal Sex Female 3:37 AM PYTHON CONSULTANT Gender Identity Female 08/26/2020 11:58 AM CDT [...] 09/09/2019 2:29 PM CDT Prescription approved per [facility], [facility] or [facility] refill protocol. Liyah Centeno - Registered Nurse [facility] documented in this encounter Plan of Treatment Upcoming Encounters Date Type Department Care Team (Late st Contact Info) Description 06/19/2024 12:00 PM PYTHON CONSULTANT Infusion Therapy Visit [place] [address] [place] [address] [place] [phone] Jeff Wong MD [facility] [address] [place], [place] [phone] 06/24/2024 9:00 AM PYTHON CONSULTANT Infusion Therapy Visit [place] [address] [place] [phone] Jeff Wong MD [facility] [address] [place], [place] [phone] 06/26/2024 2:00 PM PYTHON CONSULTANT Infusion Therapy Visit 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 Polycystic ovaries documented in this encounter Additional Health Concerns Infection Onset Date Last Indicated Resolved Time Rule Out COVID-19 01/14/2020 01/14/2020 01/15/2020 10:31 PM CDT Rule Out COVID-19 04/06/2020 04/06/2020 04/07/2020 10:32 AM PYTHON CONSULTANT Rule Out COVID-19 06/11/2020 06/11/2020 06/11/2020 7:00 PM PYTHON CONSULTANT Assessment Noted Time PHQ-9 Depression Total Score: 17 020 7:03 AM CDT documented as of this encounter Care Teams Glove Stitcher Relationship Specialty Start Date End Date Yael Neville MD [address] [facility] [place] [address] PCP - General Internal Medicine 04/11/16 [place] [address] [place] [address] [place] [address] Assigned PCP 06/13/16 03/22/24 Frank Morrow Personal Advocate & Liaison (PAL) 03/11/19 11/03/19 Saul Freire LSW Clinic Dough Puncher Primary Care - CC 12/02/1903/20 Gabino Peña MD [address] [place] [id number] Assigned Heart and Vascular Provider 02/21/20 07/03/21 Alison Yan PA-C [address] [place] [id number] Assigned Sleep Provider 07/15/20 2 Emmy Vance Cnp, MARU DOWNS [employer] [place] [address], [place] [address] Nurse Practitioner Nurse Practitioner 08/26/20 documented as of this encounter
--- OUTSIDE RECORDS SUMMARY | 2024-06-05 16:50 | XMS_ITS | Encounter Summary ---
Author Organization [place] Address [address] [place] [address]. [place] [address] Care Team Providers Care Design Engineer Name Role Phone Yael Neville MD Primary Care Provider [phone] Yael Neville MD Unavailable Frank Morrow Unavailable Unavailable Saul Freire Unavailable [phone] Gabino Peña MD Unavailable [phone] Alison Yan PA-C Unavailable [phone] Emmy Vance Knife Sharpener BRASSWIND INSTRUMENT REPAIRER RHYTHMIC GYMNASTICS COACH Unavailable [phone] Encounter Details Date Type Department Care Team (Late st Contact Info) Description 08/20/2019 MyC Medical Advice [facility] Jacek [address] [facility] [address] [place] [address] Yael Neville MD [address] [facility] [place] [address] Social History Tobacco Use [...] AM CDT Legal Sex Female 3:37 AM CREDIT HISTORIAN Gender Identity Female 08/26/2020 11:58 AM CDT [...] st Contact Info) Description 06/19/2024 12:00 PM CREDIT HISTORIAN Infusion Therapy Visit [place] [address] [place] [phone] Jeff Wong MD [facility] [address] [place] [address] 06/24/2024 9:00 AM CREDIT HISTORIAN Infusion Therapy Visit [place] [address] [place] [phone] Jeff Wong MD [facility] [address] [place], [place] [phone] 06/26/2024 2:00 PM CREDIT HISTORIAN Infusion Therapy Visit [facility] [address] [place] [phone] Jeff Wong MD [facility] [address] [place], [place] [phone] documented as of this encounter Visit Diagnoses Not on filedocumented in this encounter Additional Health Concerns Infection Onset Date Last Indicated Resolved Time Rule Out COVID-19 01/14/2020 01/14/2020 01/15/2020 10:31 PM CDT Rule Out COVID-19 04/06/2020 04/06/2020 04/07/2020 10:32 AM CREDIT HISTORIAN Rule Out COVID-19 06/11/2020 06/11/2020 06/11/2020 7:00 PM CREDIT HISTORIAN Assessment Noted Time PHQ-9 Depression Total Score: 17 020 7:03 AM CDT documented as of this encounter Care Teams Design Engineer Relationship Specialty Start Date End Date Yael Neville MD [address] [facility] [place] [address] PCP - General Internal Medicine 04/11/16 Yael Neville MD [address] [facility] [place] [address] Assigned PCP 06/13/16 03/22/24 Frank Morrow Personal Advocate & Liaison (PAL) 03/11/19 11/03/19 Saul Freire LSW Clinic Regulatory Lead Primary Care - CC 12/02/1903/20 Gabino Peña MD [address] [place] [address] Assigned Heart and Vascular Provider 02/21/20 07/03/21 Alison Yan PA-C [address] [place] [address] Assigned Sleep Provider 07/15/20 2 Emmy Vance Cnp, MARU RHYTHMIC GYMNASTICS COACH [employer] [place] [address] [place] [address] Nurse Practitioner Nurse Practitioner 08/26/20 documented as of this encounter
--- OUTSIDE RECORDS SUMMARY | 2024-06-05 16:50 | XMS_ITS | Encounter Summary ---
Author Organization [place] Address [address] [place] [address]. [place] [address] Care Team Providers Care Sea Foam Kiss Maker Name Role Phone Yael Neville MD Primary Care Provider [phone] Yael Neville MD Unavailable [phone] Frank Morrow Unavailable Unavailable Saul Freire Unavailable [phone] Gabino Peña MD Unavailable [phone] Alison Yan PA-C Unavailable [phone] Emmy Vance Cnp BIOMEDICAL FIELD SERVICE ENGINEER BOAT CANVAS MAKER AND INSTALLER Unavailable [phone] Encounter Details Date Type Department Care Team [...] AM CDT Legal Sex Female 3:37 AM BUSINESS LIAISON OFFICER Gender Identity Female 08/26/2020 11:58 AM CDT Sexual Orientation Choose not to disclose 2020 11:58 AM CDT documented as of this encounter Plan of Treatment Upcoming Encounters Date Type Department Care Team (Late st Contact Info) Description 06/19/2024 12:00 PM BUSINESS LIAISON OFFICER Infusion Therapy Visit [facility] [address] [address] [place] [phone] Jeff Wong MD [facility] [address] [place], [place] [phone] 06/24/2024 9:00 AM BUSINESS LIAISON OFFICER Infusion Therapy Visit [facility] [address] [place] [phone] Jeff Wong MD [facility] [address] [place] [address] 06/26/2024 2:00 PM BUSINESS LIAISON OFFICER Infusion Therapy Visit [facility] [address] [place] [phone] Jeff Wong MD [facility] [address] [place], [place] [phone] documented as of this encounter Visit Diagnoses Not on filedocumented in this encounter Additional Health Concerns Infection Onset Date Last Indicated Resolved Time Rule Out COVID-19 01/14/2020 01/14/2020 01/15/2020 10:31 PM CDT Rule Out COVID-19 04/06/2020 04/06/2020 04/07/2020 10:32 AM BUSINESS LIAISON OFFICER Rule Out COVID-19 06/11/2020 06/11/2020 06/11/2020 7:00 PM BUSINESS LIAISON OFFICER Assessment Noted Time PHQ-9 Depression Total Score: 17 020 7:03 AM CDT documented as of this encounter Care Teams Sea Foam Kiss Maker Relationship Specialty Start Date End Date Yael Neville MD [address] [place] [address] [place] [address] PCP - General Internal Medicine 04/11/16 Yael Neville MD [address] [facility] [place] [id number] Assigned PCP 06/13/16 03/22/24 Frank Morrow Personal Advocate & Liaison (PAL) 03/11/19 11/03/19 Saul Freire LSW Clinic Motor Vehicle Emissions Inspector Primary Care - CC 12/02/1903/20 Gabino Peña MD [address] [place] [address] Assigned Heart and Vascular Provider 02/21/20 07/03/21 Alison Yan PA-C [address] [place] [address] Assigned Sleep Provider 07/15/20 2 Emmy Vance Cnp, APRN BOAT CANVAS MAKER AND INSTALLER [employer] [place] [address] [place] [address] Nurse Practitioner Nurse Practitioner 08/26/20 documented as of this encounter
--- OUTSIDE RECORDS SUMMARY | 2024-06-05 16:50 | XMS_ITS | Clinical Summary ---
Author Organization [facility] Address [address] [place] [address]. [place] [address] Care Team Providers Care Infection Control Practitioner Name Role Phone Yael Neville MD Primary Care Provider Emmy Vance Warehouse Shipping Clerk ELECTRONIC EQUIPMENT INSTALLER PIPE LINE INSPECTOR Unavailable [phone] Allergies Active Allergy Reactions Criticality Noted Date [...] % nasal sprayIndication s:Suspected COVID-19 virus infection [place] 2 sprays in nostril 4 times daily 15 mL 1 02/22/2021 Active guaiFENesin 1200 MG [id number] :Suspected COVID-19 virus infection Take 1 tablet [...] Date Type Department Care Team Description 06/04/2024 8:22 PM BESSEMER REGULATOR - 06/04/2024 9:51 PM BESSEMER REGULATOR Emergency [facility] Emergency Dept [address] [place] [address] Sterling Salas MD Right leg pain; state, incidental Discharge Disposition: Home or Self Care 06/04/2024 Travel 05/27/2024 9:17 PM BESSEMER REGULATOR - 05/27/2024 10:30 PM [facility] Hospital Encounter [facility] [address] [address] Triston Jiménez MD Discharge Disposition: Home or Self Care 05/27/2024 Travel 05/27/2024 Orders Only [facility] [address] [facility] [place] [address] Jeff Wong MD Iron deficiency anemia, unspecified (Primary Dx); Anemia complicating in third trimester 05/21/2024 Medical Correspondence [facility] Information Management [address] [facility] [address] [place] [address] Scan, Non-Provider 04/05/2024 4:55 AM BESSEMER REGULATOR - 04/05/2024 5:54 AM BESSEMER REGULATOR Emergency [facility] Emergency Dept [address] [place] [address] Juan Mares MD Sore throat; Acute cough [...] AM CDT Legal Sex Female 3:37 AM BESSEMER REGULATOR Gender Identity Female 08/26/2020 11:58 AM CDT Sexual Orientation Choose not to disclose 2020 11:58 AM CDT Last Filed Vital Signs Vital Sign Reading Time Taken Comments Blood Pressure 125/79 06/04/2024 7:54 PM BESSEMER REGULATOR Pulse 85 06/04/2024 7:53 PM BESSEMER REGULATOR Temperature 37.2 C (99 F) 06/04/2024 7:53 PM BESSEMER REGULATOR Respiratory Rate 18 06/04/2024 7:53 PM BESSEMER REGULATOR Oxygen Saturation 98% 06/04/2024 7:53 PM BESSEMER REGULATOR Inhaled Oxygen Concentration - - Weight 100.9 kg (222 lb 7.1 oz) 06/04/2024 7:53 PM BESSEMER REGULATOR Height 167.6 cm (5' 6) 06/04/2024 7:53 PM BESSEMER REGULATOR Body Mass Index 35.9 06/04/2024 7:53 PM BESSEMER REGULATOR Plan of Treatment Upcoming Encounters Date Type Department Care Team (Late st Contact Info) Description 06/19/2024 12:00 PM BESSEMER REGULATOR Infusion Therapy Visit [facility] [address] [place] [phone] Jeff Wong MD [facility] [address] [place], [place] [phone] 06/24/2024 9:00 AM BESSEMER REGULATOR Infusion Therapy Visit [facility] [address] [place] [address] [place] [phone] Jeff Wong MD [facility] [address] [place] [address] 06/26/2024 2:00 PM BESSEMER REGULATOR Infusion Therapy Visit [facility] [address] [place] [address] [place] [phone] Jeff Wong MD [facility] [address] [place] [address] Health Maintenance Due Date Last Done Comments PHQ-9 04/29/2021 10/28/2020, 07/31, 09/10/2019, Additional history exists ANNUAL REVIEW OF HM ORDERS 10/28/2021 10/28/2020 YEARLY PREVENTIVE VISIT 10/28/2021 10/29/19 21, 08/14/2017, 11/30/2015, Additional history exists COVID-19 Vaccine ( season) 2023 04/19/2021, 09/29/2020, 08/31/2020 MATERNAL SCREENING DISCUSSION 01/09/2024 OBGCT (OB) 04/16/2024 TDAP () IMMUNIZATION 05/07/2024 ADVANCE CARE PLANNING 11/26/2024 11/27/2019 PAP 06/29/2025 06/29/2022, 10/28/2020 DTAP/TDAP/TD IMMUNIZATION (9 - Td or Tdap) 05/20/2034 05/20/2024, 10/10/2019, 09/03/2009, Additional history exists ZOSTER IMMUNIZATION (1 of 2) 08/24/2047 HEPATITIS B IMMUNIZATION Completed 999, 02/01/1999, 02/21/1998, Additional history exists HPV IMMUNIZATION Completed 03/13/2015, 06/2014, 11/04/2014, Additional history exists MENINGITIS IMMUNIZATION Completed 11/30/2015, 07/25 DEPRESSION ACTION PLAN Completed 11/28/2016, 2015 HEPATITIS C SCREENING Completed 10/28/2020 HIV SCREENING Completed 10/28/2020 CHLAMYDIA SCREENING Discontinued 06/29/2022, INFLUENZA VACCINE Completed 02/23/2024, , 12/20/2021, Additional history exists Pneumococcal Vaccine: Pediatrics (0 to 5 Years) and At-Risk Patients (6 to 49 Years) Aged Out No longer eligible based on patient's age to complete this topic RSV VACCINE (No Doses Required) Completed Procedures Procedure Name Priority Date/Time Associated Diagnosis Comments US LOWER EXTREMITY VENOUS DUPLEX RIGHT STAT 06/04/2024 9:26 PM BESSEMER REGULATOR LAB RESULT - HIM SCAN 05/20/2024 12:00 AM BESSEMER REGULATOR XRAY IMAGING - HIM SCAN 04/08/2024 12:00 AM BESSEMER REGULATOR GROUP A STREPTOCOCCUS PCR THROAT SWAB STAT 04/05/2024 4:55 AM BESSEMER REGULATOR INFLUENZA A/B, RSV AND SARS-COV2 PCR STAT 04/05/2024 4:55 AM BESSEMER REGULATOR CHLAMYDIA TRACHOMATIS/NEISSERI A GONORRHOEAE BY PCR Routine 06/29/2022 4:48 PM BESSEMER REGULATOR Encounter for screening for infections with a predominantly sexual mode of transmission GYNECOLOGIC CYTOLOGY Routine 06/29/2022 4:06 PM BESSEMER REGULATOR Encounter for screening for malignant neoplasm of [...] Extremity Venous Duplex Right (06/04/2024 9:26 PM BESSEMER REGULATOR) Anatomical Region Laterality Modality Lower Extremity Ultrasound 06/04/2024 9:26 PM BESSEMER REGULATOR Impressions 06/04/2024 9:34 PM BESSEMER REGULATOR IMPRESSION: 1. No deep venous thrombosis in the right lower extremity. Narrative 06/04/2024 9:34 PM BESSEMER REGULATOR EXAM: US LOWER EXTREMITY VENOUS DUPLEX RIGHT LOCATION: [facility] DATE: 06/04/2024 INDICATION: 31 [...] US LOWER EXTREMITY VENOUS DUPLEX RIGHT LOCATION: [facility] DATE: 06/04/2024 INDICATION: 31 [...] the right lower extremity. Sterling Salas MD [facility] US ORDERABLES Final R esult * Lab Result - HIM Scan (05/20/2024 12:00 AM BESSEMER REGULATOR) 05/20/2024 Provider Outside NON-BEAKER LAB TESTING Final Result * Xray Imaging - HIM Scan (04/08/2024 12:00 AM BESSEMER REGULATOR) Anatomical Region Laterality Modality Other 04/08/2024 Provider Outside IMG DIAGNOSTIC IMAGING ORDERABL ES Final Result * Influenza A/B, RSV and SARS-CoV2 PCR (COVID-19) Nose (04/05/2024 4:55 AM BESSEMER REGULATOR) Influenza A PCR Negative Negative 04/05/2024 5:41 AM BESSEMER REGULATOR [facility] Influenza B PCR Negative Negative 04/05/2024 5:41 AM BESSEMER REGULATOR [facility] RSV PCR Negative Negative 04/05/2024 5:41 AM BESSEMER REGULATOR [facility] SARS CoV2 PCR Negative Negative 04/05/2024 5:41 AM BESSEMER REGULATOR [facility] Comment:NEGATIVE: SARS-CoV-2 (COVID-19) RNA not detected, presumed negative. Swab NASAL STRUCTURE / Unknown Non-blood Collection / Unknown 04/05/2024 4:55 AM BESSEMER REGULATOR 04/05/2024 5:02 AM BESSEMER REGULATOR Narrative [facility] - 04/05/2024 5:41 AM BESSEMER REGULATOR Testing was performed using the Xpert Xpress CoV2/Flu/RSV Assay on the [employer] GeneXpert Instrument. This test should be ordered [...] management. This test was validated by the [facility]. These laboratories are certified under the Clinical Laboratory Improvement Amendments of 1988 (CLIA-88) as qualified to perfom high complexity laboratory testing. Juan Mares MD LAB - MICRO GENER AL ORDERABLES Final Result Performing Organization Address [facility]/ZIP Co de Phone Number [facility] [address] (1st floor, no room number) [place] [phone] * Group A Streptococcus PCR Throat Swab (04/05/2024 4:55 AM BESSEMER REGULATOR) Group A strep by PCR Not Detected Not Detected 04/05/2024 5:29 AM BESSEMER REGULATOR LABORATORY Swab STRUCTURE OF ANTERIOR PORTION OF NECK / Unknown Non-blood Collection / Unknown 04/05/2024 4:55 AM BESSEMER REGULATOR 04/05/2024 5:02 AM BESSEMER REGULATOR Narrative LABORATORY - 04/05/2024 5:29 AM BESSEMER REGULATOR The Xpert Xpress Strep A test, performed on the [employer] Instrument Systems, is a rapid, qualitative in [...] AL ORDERABLES Final Result Performing Organization Address [facility] Co de Phone Number [facility] [address] (1st floor, no room number) [place] [address] * Chlamydia trachomatis/Neisseria gonorrhoeae by PCR (06/29/2022 4:48 PM BESSEMER REGULATOR) Chlamydia Trachomatis Negative Negative 06/30/2022 12:02 PM BESSEMER REGULATOR [facility] Comment: Negative for C. trachomatis rRNA by research instrumentation technician mediated amplification. A negative result by research instrumentation technician mediated amplification does not preclude the presence of infection because results are dependent on proper and adequate collection, absence of inhibitors and sufficient rRNA to be detected. Neisseria gonorrhoeae Negative Negative 06/30/2022 12:02 PM BESSEMER REGULATOR [facility] Comment:Negative for N. gono rrhoeae rRNA by research instrumentation technician mediated amplification. A negative result by research instrumentation technician mediated amplification does not preclude the presence of C. trachomatis infection because results are dependent on proper and adequate collection, absence of inhibitors and sufficient rRNA to be detected. Swab VAGINAL STRUCTURE / Unknown Non-blood Collection / Unknown 06/29/2022 4:48 PM BESSEMER REGULATOR 06/29/2022 8:05 PM BESSEMER REGULATOR Rabia Aguilar MD LAB - MICRO G ENERAL ORDERABLES Final Result [facility] Inf. Diseases Diag. Lab [address] [facility], [address] [place] [address], [facility] [phone] * Gynecologic Cytology (PAP) (06/29/2022 4:06 PM BESSEMER REGULATOR) Interpretation Negative for Intraepithelial Lesion or Malignancy (NILM) 07/04/2022 10:[address] [facility] Comment Papanicolaou Test Limitations: Cervical cytology is a screening test with limited sensitivity, and regular screening is critical for cancer prevention. Pap tests are primarily effective for the diagnosis/prevent ion of squamous cell carcinoma, not adenocarcinoma or other cancers. 07/04/2022 10:[address] [facility] Specimen Adequacy Satisfactory for evaluation, endocervical/holcomb sformation zone component present 07/04/2022 10:[address] [facility] Clinical Information none 07/04/2022 10:[address] [facility] LMP/Menopause Date 06/04/22 07/04/2022 10:[address] [facility] Reflex Testing Yes if ASCUS 07/05/19 10:[address] [facility] Previous Abnormal? No 07/04/2022 10:47 AM BESSEMER REGULATOR [facility] Previous Abnormal Diagnosis negative 07/04/2022 10:[address] [facility] Performing Labs The technical component of this testing was completed at [facility] 07/04/2022 10:47 AM BESSEMER REGULATOR [facility] Brushing ENDOCERVICAL STRUCTURE / Unknown 06/29/2022 4:06 PM BESSEMER REGULATOR 06/29/2022 8:03 PM BESSEMER REGULATOR Rabia RECINOS - TYRONE Final Result [facility] Specialty Lab [address] [facility], [address] [address], [facility] [phone] * HIV Antigen Antibody Combo (10/28/2020 4:20 PM CDT) HIV Antigen Antibody Combo Nonreactive NR^Nonrea ctive 10/29/2020 4:34 PM CDT [facility] Comment:HIV-1 p24 Ag & HIV-1 /HIV-2 Ab Not Detected Blood 10/28/2020 4:20 PM CDT 10/28/2020 4:21 PM CDT Yael Neville MD LAB - BLOOD ORDERABLES Cary l Result Performing Organization Address [facility]/ZIP Co de Phone Number [address] [address] * Hepatitis C Screen Reflex to HCV [...] l Result [facility] [address] [place] [address] from Last 3 Months or Most Recently Relevant to Health Maintenance Insurance [facility] COMMERCIAL [facility] [employer] [facility] Advance Directives For more information, please contact: [phone] * Full Code (Latest Code Status on File) Date Activated Date Inactivated Comments 10/10/2019 12:38 PM 10/11/2019 4:37 PM Question Answer Comments Code status determined by: Discussion with charlene nt/legal decision maker Care Teams Infection Control Practitioner Relationship Specialty Start Date End Date Yael Neville MD [address] [facility] [place] [address] PCP - General Internal Medicine 04/11/16 Emmy Vance Warehouse Shipping Clerk, MARU PIPE LINE INSPECTOR [employer] [place] [address] [place] [address] Nurse Practitioner Nurse Practitioner 08/26/20
--- OUTSIDE RECORDS SUMMARY | 2024-06-05 16:50 | XMS_ITS | Encounter Summary ---
Author Organization [place] Address [address] [place] [address]. [place] [address] Care Team Providers Care Biological Engineer Name Role Phone Yael Neville MD Primary Care Provider [phone] aYel Neville MD Unavailable Frank Morrow Unavailable Unavailable Saul Freire Unavailable [phone] Gabino Peña MD Unavailable [phone] Alison Yan PA-C Unavailable [phone] Emmy Vance Claims Adjudicator CAT CRACKER OPERATOR PATIENT CARE NURSING ASSISTANT Unavailable [phone] Encounter Details Date Type Department Care Team (Late st Contact Info) Description 10/07/2019 MyC Medical Advice [facility] Jacek [address] [facility] [address] [place] [address] Yael Neville MD [address] [facility] [place] [address] Social History Tobacco Use Types Packs/Day Years Used Date Smoking Tobacco: Never Smokeless Tobacco: Never Alcohol Use Standard Drinks/Week Comments Yes 0 (1 standard drink = 0.6 oz pur e alcohol) PHQ-2 Answer Date Recorded PHQ-2 Score 4 09/10/2019 Comments No Sex and Gender Information Value Date Recorded Sex Assigned at Female 08/26/2020 11:58 AM CDT Legal Sex Female 3:37 AM BULLDOZER PRESS OPERATOR Gender Identity Female 08/26/2020 11:58 AM [...] She should be able to print from [id number]. Yael Neville M.D. documented in this encounter Plan of Treatment Upcoming Encounters Date Type Department Care Team (Late st Contact Info) Description 06/19/2024 12:00 PM BULLDOZER PRESS OPERATOR Infusion Therapy Visit [place] [address] [place] [address] [place] [phone] Jeff Wong MD [facility] [address] [place] [address] 06/24/2024 9:00 AM BULLDOZER PRESS OPERATOR Infusion Therapy Visit [facility] [address] [place] [phone] Jeff Wong MD [facility] [address] [place] [address] 06/26/2024 2:00 PM BULLDOZER PRESS OPERATOR Infusion Therapy Visit [facility] [address] [address] [place] [phone] Jeff Wong MD [facility] [address] [place], [place] [phone] documented as of this encounter Visit Diagnoses Not on filedocumented in this encounter Additional Health Concerns Infection Onset Date Last Indicated Resolved Time Rule Out COVID-19 01/14/2020 01/14/2020 01/15/2020 10:31 PM CDT Rule Out COVID-19 04/06/2020 04/06/2020 04/07/2020 10:32 AM BULLDOZER PRESS OPERATOR Rule Out COVID-19 06/11/2020 06/11/2020 06/11/2020 7:00 PM BULLDOZER PRESS OPERATOR Assessment Noted Time PHQ-9 Depression Total Score: 16 020 8:26 AM CDT documented as of this encounter Care Teams Biological Engineer Relationship Specialty Start Date End Date Yael Neville MD [address] [facility] [place] [address] PCP - General Internal Medicine 04/11/16 Yael Neville MD [address] [facility] [place] [address] Assigned PCP 06/13/16 03/22/24 Frank Morrow Personal Advocate & Liaison (PAL) 03/11/19 11/03/19 Saul Freire LSW Clinic Bail Bonding Agent Primary Care - CC 12/02/1903/20 Gabino Peña MD [address] [place] [address] Assigned Heart and Vascular Provider 02/21/20 07/03/21 Alison Yan PA-C [address] [place] [address] Assigned Sleep Provider 07/15/20 2 Emmy Vance Cnp, MARU PATIENT CARE NURSING ASSISTANT [employer] [place] [address] [id number] Nurse Practitioner Nurse Practitioner 08/26/20 documented as of this encounter
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
--- OUTSIDE RECORDS SUMMARY | 2024-06-05 16:51 | XMS_ITS | Encounter Summary ---
Author Organization [place] Address [address] [place] [address]. [place] [address] Care Team Providers Care Compliance Administrator Name Role Phone Yael Neville MD Primary Care Provider [phone] Yael Neville MD Unavailable Frank Morrow Unavailable Unavailable Saul Freire Unavailable [phone] Gabino Peña MD Unavailable [phone] Alison Yan PA-C Unavailable [phone] Emmy Vance Supervisor Slitting And Shipping MEDICAL LAB SPECIALIST RETORT FURNACE OPERATOR Unavailable [phone] Reason for Visit * Reason Onset Date Comments Refill Request 02/01/2019 Encounter Details Date Type Department Care Team (Late st Contact Info) Description 02/01/2019 Refill [facility] [address] [place] [address] [address] [place] [address] Yael Neville MD [address] [place] [address] [place] [address] Refill Request Social History [...] AM CDT Legal Sex Female 3:37 AM LAW ENFORCEMENT INSTRUCTOR Gender Identity Female 08/26/2020 11:58 AM CDT Sexual Orientation Choose not to disclose 2020 11:58 AM CDT documented as of this encounter Miscellaneous Notes * Telephone Encounter - Kimmy Vernon RN - 02/01/2019 12:31 PM CDT This medication was ordered 2 months ago with diagnosis of viral illness. Routing to provider to advise on refilling medication. Sophie YOO, RN documented in this encounter Plan of Treatment Upcoming Encounters Date Type Department Care Team (Late st Contact Info) Description 06/19/2024 12:00 PM LAW ENFORCEMENT INSTRUCTOR Infusion Therapy Visit [place] [address] [place] [phone] Jeff Wong MD [facility] [address] [place] [id number] 06/24/2024 9:00 AM LAW ENFORCEMENT INSTRUCTOR Infusion Therapy Visit [place] [address] [place] [phone] Jeff Wong MD [facility] [address] [place] [address] 06/26/2024 2:00 PM LAW ENFORCEMENT INSTRUCTOR Infusion Therapy Visit [place] [address] [place] [phone] Jeff Wong MD [facility] [address] [place], [place] [phone] documented as of this encounter Visit Diagnoses Diagnosis Viral illness Unspecified viral infection, in conditions classified elsewhere and of unspecified site documented in this encounter Additional Health Concerns Infection Onset Date Last Indicated Resolved Time Rule Out COVID-19 01/14/2020 01/14/2020 01/15/2020 10:31 PM CDT Rule Out COVID-19 04/06/2020 04/06/2020 04/07/2020 10:32 AM LAW ENFORCEMENT INSTRUCTOR Rule Out COVID-19 06/11/2020 06/11/2020 06/11/2020 7:00 PM LAW ENFORCEMENT INSTRUCTOR Assessment Noted Time PHQ-9 Depression Total Score: 17 019 11:09 AM LAW ENFORCEMENT INSTRUCTOR documented as of this encounter Care Teams Compliance Administrator Relationship Specialty Start Date End Date Yael Neville MD [address] [place] [address] [place] [address] PCP - General Internal Medicine 04/11/16 Yael Neville MD [address] [place] [address] [place] [address] Assigned PCP 06/13/16 03/22/24 Frank Morrow Personal Advocate & Liaison (PAL) 03/11/19 11/03/19 Saul Freire LSW [facility] And Rod Straightener Primary Care - CC 12/02/1903/20 Gabino Peña MD [address] [place] [address] Assigned Heart and Vascular Provider 02/21/20 07/03/21 Alison Yan PA-C [address] [place] [address] Assigned Sleep Provider 07/15/20 2 Emmy Vance Cnp, MEDICAL LAB SPECIALIST RETORT FURNACE OPERATOR [employer] [place] [address] [address] Nurse Practitioner Nurse Practitioner 08/26/20 documented as of this encounter
--- OUTSIDE RECORDS SUMMARY | 2024-06-05 16:51 | XMS_ITS | Clinical Summary ---
Author Organization [facility] Address [place], [place] [address] Care Team Providers Care Outfitter Cabin Name Role Phone Yael Neville MD Primary [...] age 9-49 12/31/2023 Pneumococcal series for age 6-49 Aged Out No longer eligible based on patient's age to complete this topic Advance Directives * Full Code (Latest Code Status on File) Date Activated Date Inactivated Comments 09/08/2016 8:19 AM 09/09/2016 2:31 AM Care Teams Outfitter Cabin Relationship Specialty Start Date End Date Yael Neville MD [address] [place] [address] [place] [address] PCP - General Internal Medicine 09/06/16
--- OUTSIDE RECORDS SUMMARY | 2024-06-05 16:51 | XMS_ITS | Encounter Summary ---
Author Organization [place] Address [address] [place] [address]. [place] [address] Care Team Providers Care Aircraft Electrician Name Role Phone Yael Neville MD Primary Care Provider [phone] Emmy Vance Loom Overhauler AUTOMATIC DRILL OPERATOR HOSPITAL MEDICAL ASSISTANT Unavailable [phone] Encounter Details Date Type Department Care Team (Latest Contact Info) Description 05/27/2024 Travel Social History Tobacco Use Types Packs/Day [...] AM CDT Legal Sex Female 3:37 AM PEDIATRIC CLINICAL NURSE SPECIALIST Gender Identity Female 08/26/2020 11:58 AM CDT Sexual Orientation Choose not to disclose 2020 11:58 AM CDT documented as of this encounter Plan of Treatment Upcoming Encounters Date Type Department Care Team (Late st Contact Info) Description 06/19/2024 12:00 PM PEDIATRIC CLINICAL NURSE SPECIALIST Infusion Therapy Visit [facility] [address] [place] [phone] Jeff Wong MD [facility] [address] [place], [place] [phone] 06/24/2024 9:00 AM PEDIATRIC CLINICAL NURSE SPECIALIST Infusion Therapy Visit [facility] [address] [place] [address] [place] [phone] Jeff Wong MD [facility] [address] [place], [place] [phone] 06/26/2024 2:00 PM PEDIATRIC CLINICAL NURSE SPECIALIST Infusion Therapy Visit [facility] [address] [place] [address] [place] [phone] Jeff Wong MD [facility] [address] [place] [address] documented as of this encounter Visit Diagnoses Not on filedocumented in this encounter Additional Health Concerns Assessment Noted Time PHQ-9 Depression Total Score: 1 10/30/19 21 7:05 AM CDT documented as of this encounter Care Teams Aircraft Electrician Relationship Specialty Start Date End Date Yael Neville MD [address] [place] [address] [place] [address] PCP - General Internal Medicine 04/11/16 Emmy Vance Cnp, AUTOMATIC DRILL OPERATOR HOSPITAL MEDICAL ASSISTANT [facility] [place] [address] [place], [place] [phone] Nurse Practitioner Nurse Practitioner 08/26/20 documented as of this encounter
--- OUTSIDE RECORDS SUMMARY | 2024-06-05 16:51 | XMS_ITS | Encounter Summary ---
Author Organization [place] Address [facility] [place] [address] Care Team Providers Care Gas Meter Repair Supervisor Name Role Phone Yael Neville MD Primary Care Provider [phone] Emmy Vance Quality Assurance Lead CONTROL MANAGER FIRE COORDINATOR Unavailable [phone] Encounter Details Date Type Department Care Team (Late st Contact Info) Description 05/27/2024 Orders Only [facility] [address] [facility], [address] [place] [address] Jeff Wong MD [facility] [address] [place] [address] Iron deficiency anemia, unspecified (Primary Dx); Anemia complicating in third trimester Social History Tobacco Use Types Packs/Day Years [...] AM CDT Legal Sex Female 3:37 AM SOLAR SALES ENERGY ADVISOR Gender Identity Female 08/26/2020 11:58 AM CDT Sexual Orientation Choose not to disclose 2020 11:58 AM CDT documented as of this encounter Progress Notes * Natanael Ramirez RPH - 05/27/2024 10:28 AM CST Images from the original note were not included. R SALES ENERGY ADVISOR documented in this encounter Plan of Treatment Upcoming Encounters Date Type Department Care Team (Late st Contact Info) Description 06/19/2024 12:00 PM SOLAR SALES ENERGY ADVISOR Infusion Therapy Visit [place] [address] [place] [phone] Jeff Wong MD [facility] [address] [place] [address] 06/24/2024 9:00 AM SOLAR SALES ENERGY ADVISOR Infusion Therapy Visit [place] [address] [place] [phone] Jeff Wong MD [facility] [address] [place], [place] [phone] 06/26/2024 2:00 PM SOLAR SALES ENERGY ADVISOR Infusion Therapy Visit [facility] [address] [place] [phone] Jeff Wong MD [facility] [address] [place], [place] [phone] documented as of this encounter Visit Diagnoses Diagnosis Iron deficiency anemia, unspecified- Primary Anemia complicating in third trimester Anemia, antepartum documented in this encounter Additional Health Concerns Assessment Noted Time PHQ-9 Depression Total Score: 1 10/30/19 21 7:05 AM CDT documented as of this encounter Care Teams Gas Meter Repair Supervisor Relationship Specialty Start Date End Date Yael Neville MD [address] [facility] [place] [address] PCP - General Internal Medicine 04/11/16 Emmy Vance Cnp, MARU DOWNS [employer] [place] [address] [place] [address] Nurse Practitioner Nurse Practitioner 08/26/20 documented as of this encounter
--- OUTSIDE RECORDS SUMMARY | 2024-06-05 16:51 | XMS_ITS | Encounter Summary ---
Author Organization [place] Address [facility] [address] Care Team Providers Care Color Specialist Name Role Phone Yael Neville MD Primary Care Provider [phone] Emmy Vance Diffuser Operator ENT CONSULTANT GRAVURE PRINTING MACHINIST Unavailable +- [phone] Encounter Details Date Type Department Care Team (Late st Contact Info) Description 05/21/2024 Medical Correspondence [facility] Information Management [address] [facility] [address] [place] [address] Scan, Non-Provider Social History Tobacco Use Types Packs/Day Years [...] AM CDT Legal Sex Female 3:37 AM CARAMEL CUTTER HAND Gender Identity Female 08/26/2020 11:58 AM CDT Sexual Orientation Choose not to disclose 2020 11:58 AM CDT documented as of this encounter Plan of Treatment Upcoming Encounters Date Type Department Care Team (Late st Contact Info) Description 06/19/2024 12:00 PM CARAMEL CUTTER HAND Infusion Therapy Visit [facility] [address] [place] [address] [place] [phone] Jeff Wong MD [facility] [address] [place] [address] 06/24/2024 9:00 AM CARAMEL CUTTER HAND Infusion Therapy Visit [facility] [address] [place] [address] [place] [phone] Jeff Wong MD [facility] [address] [place] [address] 06/26/2024 2:00 PM CARAMEL CUTTER HAND Infusion Therapy Visit [place] [address] [place] [address] [place] [phone] Jeff Wong MD [facility] [address] [place] [address] documented as of this encounter Visit Diagnoses Not on filedocumented in this encounter Additional Health Concerns Assessment Noted Time PHQ-9 Depression Total Score: 1 10/30/19 21 7:05 AM CDT documented as of this encounter Care Teams Color Specialist Relationship Specialty Start Date End Date Yael Neville MD [facility] [facility] [place] [address] PCP - General Internal Medicine 04/11/16 Emmy Vance Cnp, ENT CONSULTANT GRAVURE PRINTING MACHINIST [employer] [place] [address] [place] [address] Nurse Practitioner Nurse Practitioner 08/26/20 documented as of this encounter
--- OUTSIDE RECORDS SUMMARY | 2024-06-05 16:51 | XMS_ITS | Encounter Summary ---
Author Organization [place] Address [address] [place] [address]. [place] [address] Care Team Providers Care Actuarial Analyst Name Role Phone Yael Neville MD Primary Care Provider [phone] Emmy Vance Geothermal Technician COLLEGE RECRUITER FACILITIES MANAGEMENT EXECUTIVE Unavailable [phone]- [phone] Reason for Visit * Reason Comments Ankle Pain Encounter Details Date Type Department Care Team (Late st Contact Info) Description 06/04/2024 8:22 PM LOAN REVIEW MANAGER - 06/04/2024 9:51 PM [facility] Emergency Dept [address] [place] [address] Sterling Salas MD [facility] [address] [place] [address] Right leg pain; state, incidental Discharge Disposition: Home or Self Care Social [...] AM CDT Legal Sex Female 3:37 AM LOAN REVIEW MANAGER Gender Identity Female 08/26/2020 11:58 AM CDT Sexual Orientation Choose not to disclose 2020 11:58 AM CDT documented as of this encounter Last Filed Vital Signs Vital Sign Reading Time Taken Comments Blood Pressure 125/79 06/04/2024 7:54 PM LOAN REVIEW MANAGER Pulse 85 06/04/2024 7:53 PM LOAN REVIEW MANAGER Temperature 37.2 C (99 F) 06/04/2024 7:53 PM LOAN REVIEW MANAGER Respiratory Rate 18 06/04/2024 7:53 PM LOAN REVIEW MANAGER Oxygen Saturation 98% 06/04/2024 7:53 PM LOAN REVIEW MANAGER Inhaled Oxygen Concentration - - Weight 100.9 kg (222 lb 7.1 oz) 06/04/2024 7:53 PM LOAN REVIEW MANAGER Height 167.6 cm (5' 6) 06/04/2024 7:53 PM LOAN REVIEW MANAGER Body Mass Index 35.9 06/04/2024 7:53 PM LOAN REVIEW MANAGER documented in this encounter Discharge Instructions * Attachments The following attachments cannot be sent through Care Everywhere. * Leg Pain (Swazi) documented in this encounter Medications at Time of Discharge buPROPion (WELLBUTRIN XL) 300 MG 24 hr tablet Take 300 mg by mouth daily 08/04/2020 guaiFENesin 1200 MG [id number] uspected COVID-19 virus infection Take 1 tablet (1,200 mg) by mouth 2 times daily 60 tablet 02/22/2021 ipratropium (ATROVENT) 0.06 % nasal sprayIndications: Suspected COVID-19 virus infection Knippa 2 sprays in nostril 4 times daily [...] as of this encounter ED Notes * Nela Perez RN - 06/04/2024 9:50 PM CST Patient left prior to receiving discharge paperwork and last set of vitals. REVIEW MANAGER * Sterling Salas MD - 06/04/2024 8:56 PM CST Emergency Department Note History of Present Illness Chief Complaint Ankle Pain HPI Daysi Heck is a 28 year old female who is approximately 31 weeks here for evaluation of ankle pain. Patient reports onset of right lateral ankle pain this afternoon. She has been elevating her right foot since 1629 however the pain has persisted. She says the painful area feels warm. She came in because she is concerned for a blood clot. She denies any recent trauma injury to her right ankle. No fever. Denies history of soft tissue injuries or infection. No history of gout or pseudogout. No history of blood clots. 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 Independent Historian None Review of External Notes None Past Medical History Medical History and Problem List MDD PCOS Otitis media Iron deficiency anemia LINDA Acanthosis nigricans Medications The patient is currently on no regular medications. Surgical History Bilateral mammoplasty reduction Physical Exam Patient Vitals for the past 24 hrs: BP Temp Temp src Pulse Resp SpO2 Height Weight 06/04/241953 125/79 -- -- -- -- -- -- -- 06/04/241952 -- 99 ??F (37.2 ??C) Temporal 85 18 98 % 1.676 m (5' 6) 100.9 kg (222 lb 7.1 oz) Physical Exam EYES: Conjunctiva normal. NECK: Supple, no meningismus. CV: Regular rate and rhythm, no murmurs, rubs or gallops. 2+ DP pulses bilateral. PULM: Clear to auscultation bilateral. No respiratory distress. No wheezing, rales or stridor. ABD: Gravid No rebound or guarding. MSK: Right lower extremity : No gross deformity. No tenderness to the proximal fibula. Vogel test within normal limits. Achilles tendon is palpated without tenderness and without defect. No bony tenderness to the foot. Less than 1 cm poorly circumscribed erythematous patch just proximal to the lateral malleolus with mild tenderness and faint edema No tenderness to the talotibial joint; full active and passive range of motion of the ankle LYMPH: No cervical lymphadenopathy. NEURO: Alert. Right lower extremity: Strength and sensation intact. SKIN: Warm, dry PSYCH: Mood is good and affect is appropriate. Diagnostics Lab Results Labs Ordered and Resulted from Time of ED Arrival to Time of ED Departure - No data to display Imaging US Lower Extremity Venous Duplex Right Final Result IMPRESSION: 1. No deep venous thrombosis in the right lower extremity. Independent Interpretation None ED Course Medications Administered Medications - No data to display Procedures Procedures Discussion of Management None ED Course ED Course as of 06/04/242213e Jun 04, [id number] I obtained history and examined the patient as noted above. Additional Documentation None Medical Decision Making / Diagnosis [facility] Diagnoses: None MIPS None [facility] Daysi Heck is a 28 year old female G1, P0 at 31 weeks presents with atraumatic right lateral ankle pain and concern of DVT. Doppler ultrasound is negative for DVT. She has no convincing signs of septic/inflammatory arthritis. There is faint erythema overlying the lateral ankle but not suspicious for cellulitis at this time. Patient eloped prior to formal ultrasound results. Prior to ultrasound she was recommended to elevate, ice and utilize Tylenol. I also recommended follow-up with her primary photo cartographer if symptoms persisted with a negative ultrasound. Disposition The patient was discharged. Diagnosis ICD-10-CM 1. Right leg pain M79.604 2. state, incidental Z33.1 Discharge Medications Discharge Medication List as of 06/04/2024 9:51 PM Scribe Disclosure: I, Lilia Cervantes, am serving as a scribe at 9:03 PM on 06/04/2024 to document services personally performed by Sterling Salas MD based on my observations and the provider's statements to me. Sterling Salas MD 06/04/242214 REVIEW MANAGER * Lexii Douglas RN - 06/04/2024 7:51 PM CST Pt arrives for concern for blood clot, pain primarily above the outer aspect of the R ankle, first noticed around 1100 today. Pt is 31 wks . Minimal swelling/redness noted. Denies pain behindthe knee or recent long travel. Denies trauma to the ankle. AVSS on RA. REVIEW MANAGER documented in this encounter Plan of Treatment Upcoming Encounters Date Type Department Care Team (Late st Contact Info) Description 06/19/2024 12:00 PM LOAN REVIEW MANAGER Infusion Therapy Visit [place] [address] [address] [place] [phone] Jeff Wong MD [facility] [address] [address] 06/24/2024 9:00 AM LOAN REVIEW MANAGER [facility] [address] [place] [phone] Jeff Wong MD [facility] [address] [place] [address] 06/26/2024 2:00 PM LOAN REVIEW MANAGER [facility] [address] [place] [phone] Jeff Wong MD [facility] [address] [place], [place] [phone] documented as of this encounter Procedures Procedure Name Priority Date/Time Associated Diagnosis Comments US LOWER EXTREMITY VENOUS DUPLEX RIGHT STAT 06/04/2024 9:26 PM LOAN REVIEW MANAGER documented in this encounter Results * US Lower Extremity Venous Duplex Right (06/04/2024 9:26 PM LOAN REVIEW MANAGER) Anatomical Region Laterality Modality Lower Extremity Ultrasound 06/04/2024 9:26 PM LOAN REVIEW MANAGER Impressions 06/04/2024 9:34 PM LOAN REVIEW MANAGER IMPRESSION: 1. No deep venous thrombosis in the right lower extremity. Narrative 06/04/2024 9:34 PM LOAN REVIEW MANAGER EXAM: US LOWER EXTREMITY VENOUS DUPLEX RIGHT LOCATION: [facility] DATE: 06/04/2024 INDICATION: 31 weeks , leg [...] US LOWER EXTREMITY VENOUS DUPLEX RIGHT LOCATION: [facility] DATE: 06/04/2024 INDICATION: 31 weeks , leg [...] venous thrombosis in the right lower extremity. us Sterling Salas MD IMG US ORDERABLES Final R esult documented in this encounter Visit Diagnoses Diagnosis Right leg pain Pain in limb state, incidental documented in this encounter Additional Health Concerns Assessment Noted Time PHQ-9 Depression Total Score: 1 10/30/19 21 7:05 AM CDT documented as of this encounter Care Teams Actuarial Analyst Relationship Specialty Start Date End Date Yael Neville MD [facility] [place] [address] PCP - General Internal Medicine 04/11/16 Emmy Vance Cnp, MARU DOWNS [facility] Resources [address] [address] Nurse Practitioner Nurse Practitioner 08/26/20 documented as of this encounter
--- OUTSIDE RECORDS SUMMARY | 2024-06-05 16:51 | XMS_ITS | Encounter Summary ---
Author Organization [place] Address [address] [place] [address]. [place] [address] Care Team Providers Care Internet Marketing Specialist Name Role Phone Yael Neville MD Primary Care Provider [phone] Emmy Vance Personnel Quality Assurance Auditor STORES DESPATCH HAND DIETARY COOK Unavailable [phone]- [phone] Encounter Details Date Type Department Care Team (Latest Contact Info) Description 06/04/2024 Travel Social History Tobacco Use Types Packs/Day [...] AM CDT Legal Sex Female 3:37 AM SECOND OPERATOR Gender Identity Female 08/26/2020 11:58 AM CDT Sexual Orientation Choose not to disclose 2020 11:58 AM CDT documented as of this encounter Plan of Treatment Upcoming Encounters Date Type Department Care Team ( st Contact Info) Description 06/19/2024 12:00 PM SECOND OPERATOR Infusion Therapy Visit [facility] [address] [place] [phone] Jeff Wong MD [facility] [address] [place], [place] [phone] 06/24/2024 9:00 AM SECOND OPERATOR Infusion Therapy Visit [facility] [address] [place] [address] [place] [phone] Jeff Wong MD [facility] [address] [place], [place] [phone] 06/26/2024 2:00 PM SECOND OPERATOR Infusion Therapy Visit [facility] [address] [place] [address] [place] [phone] Jeff Wong MD [facility] [address] [place] [address] documented as of this encounter Visit Diagnoses Not on filedocumented in this encounter Additional Health Concerns Assessment Noted Time PHQ-9 Depression Total Score: 1 10/30/19 21 7:05 AM CDT documented as of this encounter Care Teams Internet Marketing Specialist Relationship Specialty Start Date End Date Yael Neville MD [address] [place] [address] [place] [address] PCP - General Internal Medicine 04/11/16 Emmy Vance Cnp, STORES DESPATCH HAND DIETARY COOK [facility] [employer] [place] [address] [place], [place] [phone] Nurse Practitioner Nurse Practitioner 08/26/20 documented as of this encounter
[2024-06-05 16:56] VITALS: BP 113/71; PULSE 83; RESP 18; TEMP 36.9; O2SAT 98; BMI 35.5
--- NOTE | 2024-06-05 17:01 | ED_ITS ---
HPI - General Adult General Chief complaint: Extremity Pain/Injury, Lower Stated complaint: R ankle red/hot/painful Time Seen by Provider: 06/05/24 16:50 History of Present Illness HPI narrative: Patient here with right ankle pain, redness and swelling starting yesterday. Negative ultrasound done at [facility] yesterday. She has been icing, elevating, and taking Tylenol today without relief. States it is getting worse. She is concerned about infection. 28-year-old woman presenting to the emergency department with concern of some right outer ankle redness pain and a little swelling. Has not had a fever. Looks to be about 30 weeks . Denies any trauma. Just is sensitive here to palpation. This is 2nd day. A little expanded from initial location. Has been icing and elevating and taking acetaminophen evaluation yesterday. Apparently had an ultrasound in evaluation yesterday. No new shortness of breath. No chest pain. No known bite. Related Data Home Medications ?Medication ?Instructions ?Recorded ?Confirmed No Known Home Medications 04/08/24 04/08/24 Allergies Allergy/AdvReac Type Severity Reaction Status Date / Time azithromycin AdvReac Verified 04/08/24 19:20 Penicillins AdvReac Verified 04/08/24 19:20 Review of Systems Status of ROS: Reports: 6 or more systems reviewed and unremarkable except as noted in History and below [facility] Social History Smoking Status: Never smoker How often do you have a drink containing alcohol: never AUDIT-C Alcohol total score: 0 Non-prescribed substance use: denies use Exam Narrative: Exam Narrative: Pleasant. NAD. Breathing easily. Rather gravid. Lower extremities are with maybe minimal symmetric edema. Area in question is the outer malleolar area of the right ankle. She does not clearly of bony tenderness. She is sensitive though to light touch. There is mild erythema and calor and mild puffiness/induration to the skin in this area. Maximal dimension of involvement is about 5 to 6 cm. No joint effusion appreciated. Well- perfused peripherally. Const: Vital Signs, click to edit/add: Vital Signs - 24 hr 06/05/24 16:56 06/05/24 18:32 Temperature 98.4 F 97.8 F Pulse Rate [Pulse Oximeter] 83 73 Respiratory Rate 18 18 Blood Pressure [Ri ght Upper Arm] 113/71 121/69 Pulse Oximetry 98 97 Oxygen Delivery Me thod Room Air Room Air Documenting provider has reviewed patient's vital signs: yes Course Vital Signs Vital signs: Initial Vital Signs Temperature 98.4 F 06/05/24 16:56 Temperature Source Temporal Artery Scan 06/05/24 16:56 Pulse Rate 83 06/05/24 16:56 Respiratory Rate 18 06/05/24 16:56 Blood Pressure 113/71 06/05/24 16:56 Blood Pressure Mean 85 06/05/24 16:56 Blood Pressure Position Sitting 06/05/24 16:56 Pulse Oximetry 98 06/05/24 16:56 Oxygen Delivery Method Room Air 06/05/24 16:56 Vital Signs Temperature 98.4 F 06/05/24 16:56 Pulse Rate 83 06/05/24 16:56 Respiratory Rate 18 06/05/24 16:56 Blood Pressure 113/71 06/05/24 16:56 Pulse Oximetry 98 06/05/24 16:56 Oxygen Delivery Method Room Air 06/05/24 16:56 Temperature 97.8 F 06/05/24 18:32 Pulse Rate 73 06/05/24 18:32 Respiratory Rate 18 06/05/24 18:32 Blood Pressure 121/69 06/05/24 18:32 Pulse Oximetry 97 06/05/24 18:32 Oxygen Delivery Method Room Air 06/05/24 18:32 Medical Decision Making MDM Narrative Medical decision making narrative: This would be unlikely to be a DVT nor do I see evidence for superficial phlebitis. Do not see the night is to indicate of the insect bite. No evidence otherwise of trauma. Again does not appear to involve the joint itself. Unusual. I would continue to monitor. Would check baseline labs and be cautious of course in . White count is WNL Hemoglobin noted to be low at 9.7 in microcytic distribution which she notes is known and is to be receiving iron infusions. CRP is reassuring normal Would recommend continued monitoring and symptomatic cares. Discussed having antibiotic available as we get closer to the weekend of seems to be spreading. Will supply this to least have on hand. This does otherwise appear to be a mild cellulitis. See patient discharge plan for further discussion Continued elevate at rest. Cool with cold moist compresses if it feels better. Can take up to 1000 mg of acetaminophen per dose. Prescribing cephalexin from [facility]. Can start tonight or tomorrow if no improvement. Take for 8 days I would follow-up for abrupt increase in redness, swelling, heat, pain or fever. Follow-up also for spreading redness after 2 days. Medical Records Medical records reviewed: Yes I reviewed the patient's medical records Lab Data Lab results reviewed: Yes I reviewed the patient's lab results Labs: Lab Results 06/05/24 Range/Units 17:33 WBC 10.52 (4.50-11.00) K/uL RBC 3.87 L (4.00-5.20) m/uL Hgb 9.7 L (12.0-16.0) gm/dL Hct 31.2 L (33.0-51.0) % MCV 81 (80-100) fL MCH 25 L (26-34) pg MCHC 31 L (32-36) gm/dL RDW Coeff of Perla 14.1 (11.5-15.5) % Plt Count 227 (140-440) K/uL Neut % (Auto) 69.2 (42.0-72.0) % Lymph % (Auto) 19.2 L (20-44) % [place] % (Auto) 9.5 (0.0-11.0) % Eos % (Auto) 0.5 (0.0-7.0) % Baso % (Auto) 0.2 (0.0-3.0) % Neut # (Auto) 7.28 H (1.7-7.0) K/uL Lymph # (Auto) 2.00 (0.90-2.90) K/uL [place] # (Auto) 1.00 H (0.00-0.90) K/UL Eos # (Auto) 0.05 (0.00-0.50) K/uL Baso # (Auto) 0.02 (0.00-0.30) K/uL Abs Immat Gran (auto) 0.15 (0.00-0.30) K/uL Imm/Tot Granulo (auto) 1.4 % C-Reactive Protein 0.6 (0.5-1.0) mg/dL Discharge Plan Discharge Clinical Impression: Cellulitis Patient Disposition: Home w/ Parent or Adult Condition: Stable Instructions: Cellulitis (ED) Additional Instructions: Continued elevate at rest. Cool with cold moist compresses if it feels better. Can take up to 1000 mg of acetaminophen per dose. Prescribing cephalexin from [facility]. Can start tonight or tomorrow if no improvement. Take for 8 days I would follow-up for abrupt increase in redness, swelling, heat, pain or fever. Follow-up also for spreading redness after 2 days. Prescriptions: No Action No Known Home Medications Follow Up/Referrals: Yale Neville MD [Primary Care Provider] - Stand Alone Forms: [employer] Info Instructions
[2024-06-05 17:36] LABS: Basophils Absolute Auto 0.02 K/uL (0.00-0.30); Basophils Percent Auto 0.2 % (0.0-3.0); Eosinophils Absolute Auto 0.05 K/uL (0.00-0.50); Eosinophils Percent Auto 0.5 % (0.0-7.0); Hematocrit 31.2 % (33.0-51.0); Hemoglobin* 9.7 gm/dL (12.0-16.0); Immature Granulocytes Abs Auto 0.15 K/uL (0.00-0.30); Immature Granulocytes Pct Auto 1.4 %; Lymphocytes Percent Auto 19.2 % (20-44); Mean Corpuscular HGB Conc 31 gm/dL (32-36); Mean Corpuscular Hemoglobin 25 pg (26-34); Mean Corpuscular Volume 81 fL (80-100); Monocytes Percent Auto 9.5 % (0.0-11.0); Neutrophils Absolute Auto 7.28 K/uL (1.7-7.0); Neutrophils Percent Auto 69.2 % (42.0-72.0); Platelet Count* 227 K/uL (140-440); RDW Coefficient of Variation % 14.1 % (11.5-15.5); Red Blood Count 3.87 m/uL (4.00-5.20); White Blood Count* 10.52 K/uL (4.50-11.00)
[2024-06-05 17:49] LABS: Slide Review Reflex No
[2024-06-05 17:54] LABS: C Reactive Protein* 0.6 mg/dL (0.5-1.0)
--- OUTSIDE RECORDS SUMMARY | 2024-06-05 17:57 | XMS_ITS | Encounter Summary ---
Author Organization [place] Address [address] [place] [address]. [place] [address] Care Team Providers Care Kiss Mixer Name Role Phone Yael Neville MD Primary Care Provider [phone] Yael Neville MD Unavailable [phone] Emmy Vance Sanitary Aide TRAVELING SALES EXECUTIVE MOTION PICTURE ACTOR Unavailable + [phone] Encounter Details Date Type Department Care Team (Late st Contact Info) Description 07/28/2021 MyC Medical Advice [address] [phone] Keya Jamison RN Social History [...] AM CDT Legal Sex Female 3:37 AM MATHEMATICAL SCIENTIST Gender Identity Female 08/26/2020 11:58 AM CDT Sexual Orientation Choose not to disclose 2020 11:58 AM CDT documented as of this encounter Plan of Treatment Upcoming Encounters Date Type Department Care Team (Late st Contact Info) Description 06/19/2024 12:00 PM MATHEMATICAL SCIENTIST Infusion Therapy Visit [facility] [address] [place] [address] [place] [phone] Jeff Wong MD [facility] [address] [place] [address] 06/24/2024 9:00 AM MATHEMATICAL SCIENTIST Infusion Therapy Visit [facility] [address] [place] [address] [place] [phone] Jeff Wong MD [facility] [address] [place] [address] 06/26/2024 2:00 PM MATHEMATICAL SCIENTIST Infusion Therapy Visit [place] [address] [place] [address] [place] [phone] Jeff Wong MD [facility] [address] [place] [address] documented as of this encounter Visit Diagnoses Not on filedocumented in this encounter Additional Health Concerns Assessment Noted Time PHQ-9 Depression Total Score: 1 10/30/19 21 7:05 AM CDT documented as of this encounter Care Teams Kiss Mixer Relationship Specialty Start Date End Date Yael Neville MD [address] [place] [address] [place] [address] PCP - General Internal Medicine 04/11/16 Yael Neville MD [address] [place] [address] [place] [address] Assigned PCP 06/13/16 03/22/24 Emmy Vance Cnp, TRAVELING SALES EXECUTIVE MOTION PICTURE ACTOR [employer] [place] [address] [place] [address] Nurse Practitioner Nurse Practitioner 08/26/20 documented as of this encounter
--- OUTSIDE RECORDS SUMMARY | 2024-06-05 17:57 | XMS_ITS | Encounter Summary ---
Author Organization [facility] Address [address] [place] [address]. [place] [address] Care Team Providers Care Data Capture Specialist Name Role Phone Yael Neville MD Primary Care Provider [phone] Yael Neville MD Unavailable [phone] Frank Morrow Unavailable Unavailable Saul Freire Unavailable [phone] Gabino Peña MD Unavailable [phone] Alison Yan PA-C Unavailable [phone] Emmy Vance Hand Coremaker APPLICATION SUPPORT INTERN MANUFACTURING TECH Unavailable [phone] Reason for Visit * Reason Onset Date Comments Refill Request 07/19/2018 Encounter Details Date Type Department Care Team (Late st Contact Info) Description 07/19/2018 MyC Refill [facility] Jacek [address] [place] [address] Drive [address] [place] [address] Yael Neville MD [address] [place] [address] [place] [address] Refill Request Social History [...] AM CDT Legal Sex Female 3:37 AM ALUMNI RELATIONS COORDINATOR Gender Identity Female 08/26/2020 11:58 AM CDT Sexual Orientation Choose not to disclose 2020 11:58 AM CDT documented as of this encounter Plan of Treatment Upcoming Encounters Date Type Department Care Team (Late st Contact Info) Description 06/19/2024 12:00 PM ALUMNI RELATIONS COORDINATOR Infusion Therapy Visit [facility] [address] [address] [place] [address] Jeff Wong MD [facility] [address] [place], [place] [id number] 06/24/2024 9:00 AM ALUMNI RELATIONS COORDINATOR Infusion Therapy Visit [facility] [address] [place] [address] Jeff Wong MD [facility] [address] [place], [place] [id number] 06/26/2024 2:00 PM ALUMNI RELATIONS COORDINATOR Infusion Therapy Visit [facility] [address] [place] [address] Jeff Wong MD [facility] [address] [place], [place] [phone] documented as of this encounter Visit Diagnoses Diagnosis 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 Polycystic ovaries documented in this encounter Additional Health Concerns Infection Onset Date Last Indicated Resolved Time Rule Out COVID-19 01/14/2020 01/14/2020 01/15/2020 10:31 PM CDT Rule Out COVID-19 04/06/2020 04/06/2020 04/07/2020 10:32 AM ALUMNI RELATIONS COORDINATOR Rule Out COVID-19 06/11/2020 06/11/2020 06/11/2020 7:00 PM ALUMNI RELATIONS COORDINATOR Assessment Noted Time PHQ-9 Depression Total Score: 17 019 11:09 AM ALUMNI RELATIONS COORDINATOR documented as of this encounter Care Teams Data Capture Specialist Relationship Specialty Start Date End Date Yael Neville MD [address] [place] [address] [place] [address] PCP - General Internal Medicine 04/11/16 Yael Neville MD [address] [place] [address] [place] [address] Assigned PCP 06/13/16 03/22/24 Frank Morrow Personal Advocate & Liaison (PAL) 03/11/19 11/03/19 Saul Freire LSW Clinic Supervisor [facility] - CC 12/02/1903/20 Gabino Peña MD [address] [place] [address] Assigned Heart and Vascular Provider 02/21/20 07/03/21 Alison Yan PA-C [address] [place] [address] Assigned Sleep Provider 07/15/20 2 Emmy Vance Cnp, APPLICATION SUPPORT INTERN MANUFACTURING TECH [facility] [place] [address] [place] [address] Nurse Practitioner Nurse Practitioner 08/26/20 documented as of this encounter
--- OUTSIDE RECORDS SUMMARY | 2024-06-05 17:57 | XMS_ITS | Encounter Summary ---
Author Organization [facility] Address [address] [place] [address]. [place] [address] Care Team Providers Care Secondary English Teacher Name Role Phone Yael Neville MD Primary Care Provider [phone] Yael Neville MD Unavailable [phone] Gabino Peña MD Unavailable [phone] Alison Yan PAAshlyC Unavailable + [phone] Emmy Vance Food Chemist ARMED SECURITY GUARD CRUSHER TENDER Unavailable [phone] Encounter Details Date Type Department Care Team (Late st Contact Info) Description 12/10/2020 [facility] [address] [place] [address] Lucie Dao Social History Tobacco Use [...] AM CDT Legal Sex Female 3:37 AM NUCLEAR FUELS RESEARCH ENGINEER Gender Identity Female 08/26/2020 11:58 AM CDT Sexual Orientation Choose not to disclose 2020 11:58 AM CDT documented as of this encounter Plan of Treatment Upcoming Encounters Date Type Department Care Team (Late st Contact Info) Description 06/19/2024 12:00 PM NUCLEAR FUELS RESEARCH ENGINEER Infusion Therapy Visit [place] [address] [place] [address] [place] [address] Jeff Wong MD [facility] [address] [place], [place] [phone] 06/24/2024 9:00 AM NUCLEAR FUELS RESEARCH ENGINEER Infusion Therapy Visit [place] [address] [address] [place] [address] Jeff Wong MD [facility] [address] [place] [address] 06/26/2024 2:00 PM NUCLEAR FUELS RESEARCH ENGINEER Infusion Therapy Visit [place] [address] [address] [place] [address] Jeff Wong MD [facility] [address] [place] [address] documented as of this encounter Visit Diagnoses Not on filedocumented in this encounter Additional Health Concerns Assessment Noted Time PHQ-9 Depression Total Score: 1 10/30/19 21 7:05 AM CDT documented as of this encounter Care Teams Secondary English Teacher Relationship Specialty Start Date End Date Yael Neville MD [address] [place] [address] [place] [address] PCP - General Internal Medicine 04/11/16 [place] [address] [place] [address] [place] [address] Assigned PCP 06/13/16 03/22/24 Gabino Peña MD [address] [place] [address] Assigned Heart and Vascular Provider 02/21/20 07/03/21 Alison Yan PA-C [address] [place] [address] Assigned Sleep Provider 07/15/20 2 Emmy Vance Cnp, APRN CNP [facility] [place] [address] [place] [address] Nurse Practitioner Nurse Practitioner 08/26/20 documented as of this encounter
--- OUTSIDE RECORDS SUMMARY | 2024-06-05 17:57 | XMS_ITS | Encounter Summary ---
Author Organization [facility] Address [address] [place] [address]. [place] [address] Care Team Providers Care Customer Service Analyst Name Role Phone Yael Neville MD Primary Care Provider [phone] Yael Neville MD Unavailable [phone] Gabino Peña MD Unavailable [phone] Alison Yan PA-C Unavailable + [phone] Emmy Vance Oxyhydrogen Welder GAMES MANAGER NETWORK INTERN Unavailable [phone] Encounter Details Date Type Department Care Team [...] AM CDT Legal Sex Female 3:37 AM SHELLFISH GROWER Gender Identity Female 08/26/2020 11:58 AM CDT [...] st Contact Info) Description 06/19/2024 12:00 PM SHELLFISH GROWER Infusion Therapy Visit [place] [address] [facility] [address] [place] [address] Jeff Wong MD [facility] [address] [place] [address] 06/24/2024 9:00 AM SHELLFISH GROWER Infusion Therapy Visit [place] [address] [place] [address] [place] [address] Jeff Wong MD [facility] [address] [place] [address] 06/26/2024 2:00 PM SHELLFISH GROWER Infusion Therapy Visit [place] [address] [place] [address] [place] [address] Jeff Wong MD [facility] [address] [place], [place] [phone] documented as of this encounter Visit Diagnoses Not on filedocumented in this encounter Additional Health Concerns Assessment Noted Time PHQ-9 Depression Total Score: 3 08/28/19 21 7:02 AM CDT documented as of this encounter Care Teams Customer Service Analyst Relationship Specialty Start Date End Date Yael Neville MD [address] [place] [address] [place] [address] PCP - General Internal Medicine 04/11/16 Yael Neville MD [address] [place] [address] [place] [address] Assigned PCP 06/13/16 03/22/24 Gabino Peña MD [address] [place] [address] Assigned Heart and Vascular Provider 02/21/20 07/03/21 Alison Yan PA-C [address] [place] [address] Assigned Sleep Provider 07/15/20 2 Emmy Vance Cnp, APRN CNP [facility] [address] [place] [address] Nurse Practitioner Nurse Practitioner 08/26/20 documented as of this encounter
--- OUTSIDE RECORDS SUMMARY | 2024-06-05 17:57 | XMS_ITS | Encounter Summary ---
Author Organization [facility] Address [address] [place] [address]. [place] [address] Care Team Providers Care Delinquency Prevention Officer Name Role Phone Yael Neville MD Primary Care Provider [phone] Yael Neville MD Unavailable Gabino Peña MD Unavailable [phone] Emmy Vance Cotton Weigher HEAD CD REACTOR OPERATOR ARCHITECTURAL PROJECT MANAGER Unavailable [phone] Encounter Details Date Type Department Care Team (Late st Contact Info) Description 05/12/2021 MyC Medical Advice [facility] Jacek [address] [place] [address] Drive [address] [place] [address] [place] [address] [place] [address] [place] [address] Social History Tobacco Use [...] AM CDT Legal Sex Female 3:37 AM ANALYTICAL LEAD Gender Identity Female 08/26/2020 11:58 AM CDT Sexual Orientation Choose not to disclose 2020 11:58 AM CDT documented as of this encounter Miscellaneous Notes * Telephone Encounter - Arin Tay RN - 05/12/2021 10:[address] Neville, Please see message and advise Thank you Arin Tay RN on 05/12/2021 at 10:54 AM YTICAL LEAD documented in this encounter Plan of Treatment Upcoming Encounters Date Type Department Care Team (Late st Contact Info) Description 06/19/2024 12:00 PM ANALYTICAL LEAD Infusion Therapy Visit [place] [address] [address] [place] [address] Jeff Wong MD [facility] [address] [place], [place] [phone] 06/24/2024 9:00 AM ANALYTICAL LEAD Infusion Therapy Visit [place] [address] [address] [place] [address] Jeff Wong MD [facility] [address] [place], [place] [address] 06/26/2024 2:00 PM ANALYTICAL LEAD Infusion Therapy Visit [facility] [address] [address] [place] [address] Jeff Wong MD [facility] [address] [place], [place] [address] documented as of this encounter Visit Diagnoses Not on filedocumented in this encounter Additional Health Concerns Assessment Noted Time PHQ-9 Depression Total Score: 1 10/30/19 21 7:05 AM CDT documented as of this encounter Care Teams Delinquency Prevention Officer Relationship Specialty Start Date End Date Yael Neville MD [address] [place] [address] [place] [address] PCP - General Internal Medicine 04/11/16 Yael Neville MD [address] [place] [address] [place] [address] Assigned PCP 06/13/16 03/22/24 Gabino Peña MD [address] [place] [address] Assigned Heart and Vascular Provider 02/21/20 07/03/21 Emmy Vance Cotton Weigher, HEAD CD REACTOR OPERATOR ARCHITECTURAL PROJECT MANAGER [facility] [address] [place] [address] Nurse Practitioner Nurse Practitioner 08/26/20 documented as of this encounter
--- OUTSIDE RECORDS SUMMARY | 2024-06-05 17:57 | XMS_ITS | Encounter Summary ---
Author Organization [facility] Address [address] [place] [address]. [place] [address] Care Team Providers Care Forestry Conservation Worker Name Role Phone Yael Neville MD Primary Care Provider [phone] Yael Neville MD Unavailable [phone] Emmy Vance Gear Generator Set Up Operator FERRIS WHEEL OPERATOR ASSEMBLY LEAD PERSON Unavailable Encounter Details Date Type Department Care Team (Late st Contact Info) Description 05/14/2022 MyC Medical Advice [facility] Jacek [address] [place] [address] Yael Neville MD [address] [facility] [place] [address] Social History Tobacco [...] AM CDT Legal Sex Female 3:37 AM SPA CONSULTANT Gender Identity Female 08/26/2020 11:58 AM CDT Sexual Orientation Choose not to disclose 2020 11:58 AM CDT documented as of this encounter Plan of Treatment Upcoming Encounters Date Type Department Care Team (Late st Contact Info) Description 06/19/2024 12:00 PM SPA CONSULTANT Infusion Therapy Visit [place] [address] [place] [address] Jeff Wong MD [facility] [address] [place], [place] [phone] 06/24/2024 9:00 AM SPA CONSULTANT Infusion Therapy Visit [place] [address] [place] [address] Jeff Wong MD [facility] [address] [place] [address] 06/26/2024 2:00 PM SPA CONSULTANT Infusion Therapy Visit [place] [address] [address] [place] [address] Jeff Wong MD [facility] [address] [place] [address] documented as of this encounter Visit Diagnoses Not on filedocumented in this encounter Additional Health Concerns Assessment Noted Time PHQ-9 Depression Total Score: 1 10/30/19 21 7:05 AM CDT documented as of this encounter Care Teams Forestry Conservation Worker Relationship Specialty Start Date End Date Yael Neville MD [address] [place] [address] [place] [address] PCP - General Internal Medicine 04/11/16 [place] [address] [place] [address] [place] [address] Assigned PCP 06/13/16 03/22/24 Emmy Vance Cnp, MARU DOWNS [facility] Resources [address] [address] Nurse Practitioner Nurse Practitioner 08/26/20 documented as of this encounter
--- OUTSIDE RECORDS SUMMARY | 2024-06-05 17:57 | XMS_ITS | Encounter Summary ---
Author Organization [facility] Address [address] [place] [address]. [place] [address] Care Team Providers Care Dragger Out Name Role Phone Yael Neville MD Primary Care Provider [phone] Yael Neville MD Primary Care Provider [phone] Yael Neville MD Unavailable Yael Neville MD Unavailable Frank Morrow Unavailable Unavailable Saul Freire Unavailable [phone] Gabino Peña MD Unavailable [phone] Alison Yan PA-C Unavailable [phone] Emmy Vance Forensic Identification Specialist BULK MAIL CLERK COATER SLATE Unavailable [phone] Reason for Visit * Reason Onset Date Comments Refill Request 01/19/2015 ESCITALOPRAM 5MG Encounter Details Date Type Department Care Team (Late st Contact Info) Description 01/17/2015 Refill [facility] Jacek [address] [facility] [place] [address] Yael Neville MD [address] [facility] [place] [address] Refill Request (ESCITALOPRAM 5MG) Social History Tobacco Use Types Packs/Day Years Used Date Smoking Tobacco: Never Smokeless Tobacco: Never Alcohol Use Standard Drinks/Week Comments No 0 (1 standard drink = 0.6 oz pur e alcohol) Comments No Sex and Gender Information Value Date Recorded Sex Assigned at Female 08/26/2020 11:58 AM CDT Legal Sex Female 3:37 AM SIDE LASTER Gender Identity Female 08/26/2020 11:58 AM CDT Sexual Orientation Choose not to disclose 2020 11:58 AM CDT documented as of this encounter Miscellaneous Notes * Telephone Encounter - Sandy Deleon LPN - 01/21/2015 4:25 PM CDT Called and talked with Mom, Amirah and Daysi had run out of pills and pharmacy's system was down and so they will pickle cutter pills soon. Daysi will call us back [...] # refills: 1 Last Office Visit with [facility] primary care provider: 11/04/2014 Last PHQ-9 score on record= PHQ-9 SCORE 11/04/2014 Total Score 8 documented in this encounter Plan of Treatment Upcoming Encounters Date Type Department Care Team (Late st Contact Info) Description 06/19/2024 12:00 PM SIDE LASTER Infusion Therapy Visit [facility] [place] [address] [place] [address] Jeff Wong MD [facility] [address] [place] [address] 06/24/2024 9:00 AM SIDE LASTER Infusion Therapy Visit [place] [address] [place] [address] Jeff Wong MD [facility] [address] [place] [address] 06/26/2024 2:00 PM SIDE LASTER Infusion Therapy Visit [place] [address] [place] [address] Jeff Wong MD [facility] [address] [place] [address] documented as of this encounter Visit Diagnoses Diagnosis LINDA (generalised anxiety disorder)- Primary Generalized anxiety disorder documented in this encounter Additional Health Concerns Infection Onset Date Last Indicated Resolved Time Rule Out COVID-19 01/14/2020 01/14/2020 01/15/2020 10:31 PM CDT Rule Out COVID-19 04/06/2020 04/06/2020 04/07/2020 10:32 AM SIDE LASTER Rule Out COVID-19 06/11/2020 06/11/2020 06/11/2020 7:00 PM SIDE LASTER documented as of this encounter Care Teams Dragger Out Relationship Specialty Start Date End Date Yael Neville MD [address] [place] [address] [place] [address] PCP - General Internal Medicine 06/12/12 03/28/16 Yeal Neville MD [address] [place] [address] [place] [address] PCP - General Internal Medicine 04/11/16 Yael Neville MD [address] [place] [address] [place] [address] PCP - Assigned PCP 06/13/16 07/03/18 Yael Neville MD [address] [place] [address] [place] [address] Assigned PCP 06/13/16 03/22/24 Frank Morrow Personal Advocate & Liaison (PAL) 03/11/19 11/03/19 Saul Freire LSW Clinic Substation Maintenance Technician Primary Care - CC 12/02/1903/20 Gabino Peña MD [address] [place] [address] Assigned Heart and Vascular Provider 02/21/20 07/03/21 Alison Yan PA-C [address] [place] [address] Assigned Sleep Provider 07/15/20 Emmy Alegre Cnp, BULK MAIL CLERK COATER SLATE [facility] [address] [place] [address] Nurse Practitioner Nurse Practitioner 08/26/20 documented as of this encounter
--- OUTSIDE RECORDS SUMMARY | 2024-06-05 17:57 | XMS_ITS | Encounter Summary ---
Author Organization [facility] Address [address] [place] [address]. [place] [address] Care Team Providers Care Supervisor Electronics Assembly Name Role Phone Yael Neville MD Primary Care Provider [phone] Yael Neville MD Unavailable [phone] Gabino Peña MD Unavailable [phone] Alison Yan PA-C Unavailable [phone] Emmy Vance Professor Of Radiology AUTOMOTIVE LEASING SALES REPRESENTATIVE DIRECTOR INFORMATICS Unavailable [phone] Encounter Details Date Type Department Care Team [...] AM CDT Legal Sex Female 3:37 AM EVENT PLANNING MANAGER Gender Identity Female 08/26/2020 11:58 AM CDT Sexual Orientation Choose not to disclose 2020 11:58 AM CDT documented as of this encounter Plan of Treatment Upcoming Encounters Date Type Department Care Team (Late st Contact Info) Description 06/19/2024 12:00 PM EVENT PLANNING MANAGER Infusion Therapy Visit [facility] [address] [facility] [address] [place] [address] Jeff Wong MD [facility] [address] [place] [address] 06/24/2024 9:00 AM EVENT PLANNING MANAGER Infusion Therapy Visit [facility] [address] [place] [address] [place] [address] Jeff Wong MD [facility] [address] [place] [address] 06/26/2024 2:00 PM EVENT PLANNING MANAGER Infusion Therapy Visit [facility] [address] [facility] [address] [place] [address] Jeff Wong MD [facility] [address] [place] [address] documented as of this encounter Visit Diagnoses Not on filedocumented in this encounter Additional Health Concerns Assessment Noted Time PHQ-9 Depression Total Score: 1 10/30/19 21 7:05 AM CDT documented as of this encounter Care Teams Supervisor Electronics Assembly Relationship Specialty Start Date End Date Yael Neville MD [address] [place] [address] [place] [address] PCP - General Internal Medicine 04/11/16 [place] [address] [place] [address] [place] [address] Assigned PCP 06/13/16 03/22/24 Gabino Peña MD [address] [place] [address] Assigned Heart and Vascular Provider 02/21/20 07/03/21 Alison Yan PA-C [address] [place] [address] Assigned Sleep Provider 07/15/20 2 Emmy Vance Cnp, APRN CNP [facility] [place] [address] [place] [address] Nurse Practitioner Nurse Practitioner 08/26/20 documented as of this encounter
--- OUTSIDE RECORDS SUMMARY | 2024-06-05 17:57 | XMS_ITS | Encounter Summary ---
Author Organization [place] Address [address] [place] [address]. [place] [address] Care Team Providers Care Virtual Recruiter Name Role Phone Yael Neville MD Primary Care Provider [phone] Yael Neville MD Unavailable [phone] Gabino Peña MD Unavailable [phone] Alison YanC Unavailable + [phone] Emmy Vance Cellular Tower Climber SYSTEM SPECIALIST FOUNDATION DRILL OPERATOR Unavailable [phone] Reason for Visit * Reason Onset Date Comments Appointment 12/09/2020 TB blood test Encounter Details Date Type Department Care Team (Late st Contact Info) Description 12/09/2020 Telephone [facility] [address] [place] [address] Yael Neville MD [address] [place] [address] [place] [address] Appointment (TB blood test) [...] AM CDT Legal Sex Female 3:37 AM SUPERVISOR DRYING AND SOFTENING Gender Identity Female 08/26/2020 11:58 AM CDT Sexual Orientation Choose not to disclose 2020 11:58 AM CDT documented as of this encounter Miscellaneous Notes * Telephone Encounter - Lucie Dao - 12/10/2020 11:15 AM CDT 51want message sent to patient. * Telephone Encounter - Brenda Kumar - 12/09/2020 8:07 PM CDT Patient needs a TB blood test for school. Can you please put order in for her? documented in this encounter Plan of Treatment Upcoming Encounters Date Type Department Care Team (Late st Contact Info) Description 06/19/2024 12:00 PM SUPERVISOR DRYING AND SOFTENING Infusion Therapy Visit [place] [address] [place] [phone] Jeff Wong MD [facility] [address] [place] [address] 06/24/2024 9:00 AM SUPERVISOR DRYING AND SOFTENING Infusion Therapy Visit [facility] [address] [place] [address] Jeff Wong MD [facility] [address] [place], [place] [address] 06/26/2024 2:00 PM SUPERVISOR DRYING AND SOFTENING Infusion Therapy Visit [facility] [address] [place] [address] Jeff Wong MD [facility] [address] [place], [place] [phone] documented as of this encounter Visit Diagnoses Not on filedocumented in this encounter Additional Health Concerns Assessment Noted Time PHQ-9 Depression Total Score: 1 10/30/19 21 7:05 AM CDT documented as of this encounter Care Teams Virtual Recruiter Relationship Specialty Start Date End Date Yael Neville MD [address] [place] [address] [place] [address] PCP - General Internal Medicine 04/11/16 Yael Neville MD [address] [place] [address] [place] [address] Assigned PCP 06/13/16 03/22/24 Gabino Peña MD [address] [place] [address] Assigned Heart and Vascular Provider 02/21/20 07/03/21 Alison Yan PA-C [address] [place] [address] Assigned Sleep Provider 07/15/20 2 Emmy Vance Cnp, SYSTEM SPECIALIST FOUNDATION DRILL OPERATOR [employer] [place] [address] [place] [address] Nurse Practitioner Nurse Practitioner 08/26/20 documented as of this encounter
--- OUTSIDE RECORDS SUMMARY | 2024-06-05 17:57 | XMS_ITS | Encounter Summary ---
Author Organization [place] Address [address] [place] [address]. [place] [address] Care Team Providers Care Distribution Dispatcher Name Role Phone Yael Neville MD Primary Care Provider [phone] Yael Neville MD Unavailable Gabino Peña MD Unavailable [phone] Alison Yan PA-C Unavailable [phone] Emmy Vance Church History Professor ROBOT OPERATOR SHEAR TENDER Unavailable [phone]- [phone] Encounter Details Date Type Department Care Team (Late st Contact Info) Description 12/11/2020 Orders Only [facility] Jacek [address] [place] [address] [place] [address] [place] [address] [place] [address] Social History Tobacco Use [...] AM CDT Legal Sex Female 3:37 AM MEDICINAL CHEMIST Gender Identity Female 08/26/2020 11:58 AM CDT Sexual Orientation Choose not to disclose 2020 11:58 AM CDT documented as of this encounter Plan of Treatment Upcoming Encounters Date Type Department Care Team (Late st Contact Info) Description 06/19/2024 12:00 PM MEDICINAL CHEMIST Infusion Therapy Visit [place] [address] [place] [address] [place] [phone] Jeff Wong MD [facility] [address] [place], [place] [phone] 06/24/2024 9:00 AM MEDICINAL CHEMIST Infusion Therapy Visit [facility] [address] [place] [address] Jeff Wong MD [facility] [address] [place] [address] 06/26/2024 2:00 PM MEDICINAL CHEMIST Infusion Therapy Visit [place] [address] [address] [place] [address] Jeff Wong MD [facility] [address] [place], [place] [phone] documented as of this encounter Visit Diagnoses Not on filedocumented in this encounter Additional Health Concerns Assessment Noted Time PHQ-9 Depression Total Score: 1 10/30/19 21 7:05 AM CDT documented as of this encounter Care Teams Distribution Dispatcher Relationship Specialty Start Date End Date Yael Neville MD [address] [place] [address] [place] [address] PCP - General Internal Medicine 04/11/16 Yael Neville MD [address] [facility] [place] [address] Assigned PCP 06/13/16 03/22/24 Gabino Peña MD [address] [place] [address] Assigned Heart and Vascular Provider 02/21/20 07/03/21 Alison Yan PA-C [address] [place] [address] Assigned Sleep Provider 07/15/20 2 Emmy Vance Cnp, MARU SHEAR TENDER [employer] [place] [address] [place] [address] Nurse Practitioner Nurse Practitioner 08/26/20 documented as of this encounter
--- OUTSIDE RECORDS SUMMARY | 2024-06-05 17:57 | XMS_ITS | Encounter Summary ---
Author Organization [facility] Address [address] [place] [address]. [place] [address] Care Team Providers Care Wheel Presser Name Role Phone Yael Neville MD Primary Care Provider [phone] Yael Neville MD Unavailable Gabino Peña MD Unavailable [phone] Alison Yan PA-C Unavailable [phone] Emmy Vance Merchandise Manager PARTS SALES COUNTERPERSON AUTOMOBILE CONTRACT CLERK Unavailable [phone]- [phone] Encounter Details Date Type Department Care Team (Late st Contact Info) Description 04/28/[address] [facility] [address] [facility] [address] [place] [address] Yael Neville MD [address] [place] [address] [place] [id number] Social History Tobacco Use Types Packs/Day Years [...] AM CDT Legal Sex Female 3:37 AM SKETCH MAKER Gender Identity Female 08/26/2020 11:58 AM CDT Sexual Orientation Choose not to disclose 2020 11:58 AM CDT documented as of this encounter Plan of Treatment Upcoming Encounters Date Type Department Care Team (Late st Contact Info) Description 06/19/2024 12:00 PM SKETCH MAKER Infusion Therapy Visit [facility] [address] [place] [address] [place] [phone] Jeff Wong MD [facility] [address] [place], [place] [address] 06/24/2024 9:00 AM SKETCH MAKER Infusion Therapy Visit [facility] [address] [place] [address] Jeff Wong MD [facility] [address] [place] [address] 06/26/2024 2:00 PM SKETCH MAKER Infusion Therapy Visit [place] [address] [place] [address] Jeff Wong MD [facility] [address] [place], [place] [phone] documented as of this encounter Visit Diagnoses Not on filedocumented in this encounter Additional Health Concerns Assessment Noted Time PHQ-9 Depression Total Score: 1 10/30/19 21 7:05 AM CDT documented as of this encounter Care Teams Wheel Presser Relationship Specialty Start Date End Date Yael Neville MD [address] [facility] [place] [address] PCP - General Internal Medicine 04/11/16 Yael Neville MD [address] [facility] [place] [address] Assigned PCP 06/13/16 03/22/24 Gabino Peña MD [address] [place] [address] Assigned Heart and Vascular Provider 02/21/20 07/03/21 Alison Yan PA-C [address] [place] [address] Assigned Sleep Provider 07/15/20 Emmy Alegre Cnp, MARU AUTOMOBILE CONTRACT CLERK [employer] [place] [address] [place] [address] Nurse Practitioner Nurse Practitioner 08/26/20 documented as of this encounter
--- OUTSIDE RECORDS SUMMARY | 2024-06-05 17:57 | XMS_ITS | Encounter Summary ---
Author Organization [facility] Address [address] [place] [address]. [place] [address] Care Team Providers Care Technical Trainer Name Role Phone Yael Neville MD Primary Care Provider [phone] Yael Neville MD Unavailable [phone] Gabino Peña MD Unavailable [phone] Alison YanC Unavailable [phone] Emmy Vance Chemical Lab Supervisor FINANCIAL ACCOUNTANT ACCOUNT SERVICES SPECIALIST Unavailable [phone] Reason for Visit * Reason Onset Date Comments Refill Request 03/25/2020 metFORMIN (GLUCO PHAGE-XR) 500 MG 24 hr tablet Encounter Details Date Type Department Care Team (Late st Contact Info) Description [facility] [address] [place] [address] [place] [address] [place] [address] [place] [address] Refill Request (metFORMIN (GLUCOPHAGE-XR) [...] AM CDT Legal Sex Female 3:37 AM DISTRICT LEADER Gender Identity Female 08/26/2020 11:58 AM CDT Sexual Orientation Choose not to disclose 2020 11:58 AM CDT documented as of this encounter Miscellaneous Notes * Telephone Encounter - Pao Stuart RN - 03/27/2020 9:18 AM DISTRICT LEADER Prescription approved per [facility] Refill Protocol. Pao Stuart RN [facility] -- Triage Nurse RICT LEADER documented in this encounter Plan of Treatment Upcoming Encounters Date Type Department Care Team (Late st Contact Info) Description 06/19/2024 12:00 PM DISTRICT LEADER Infusion Therapy Visit [place] [address] [place] [address] Jeff Wong MD [facility] [address] [place], [place] [phone] 06/24/2024 9:00 AM DISTRICT LEADER Infusion Therapy Visit [place] [address] [place] [address] Jeff Wong MD [facility] [address] [place], [place] [address] 06/26/2024 2:00 PM DISTRICT LEADER Infusion Therapy Visit [place] [address] [place] [address] Jeff Wong MD [facility] [address] [place], [place] [phone] documented as of this encounter Visit Diagnoses Diagnosis 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 Polycystic ovaries documented in this encounter Additional Health Concerns Infection Onset Date Last Indicated Resolved Time Rule Out COVID-19 04/06/2020 04/06/2020 04/07/2020 10:32 AM DISTRICT LEADER Rule Out COVID-19 06/11/2020 06/11/2020 06/11/2020 7:00 PM DISTRICT LEADER Assessment Noted Time PHQ-9 Depression Total Score: 16 020 8:26 AM CDT documented as of this encounter Care Teams Technical Trainer Relationship Specialty Start Date End Date Yael Neville MD [address] [place] [address] [place] [address] PCP - General Internal Medicine 04/11/16 Yael Neville MD [address] [place] [address] [place] [address] Assigned PCP 06/13/16 03/22/24 Gabino Peña MD [address] [place] [address] Assigned Heart and Vascular Provider 02/21/20 07/03/21 Alison Yan PA-C [address] [place] [address] Assigned Sleep Provider 07/15/20 2 Emmy Vance Cnp, MARU ACCOUNT SERVICES SPECIALIST [employer] [facility] [address] [place] [address] Nurse Practitioner Nurse Practitioner 08/26/20 documented as of this encounter
--- OUTSIDE RECORDS SUMMARY | 2024-06-05 17:58 | XMS_ITS | Encounter Summary ---
Author Organization [facility] Address [address] [place] [address]. [place] [address] Care Team Providers Care Propulsion Engineer Name Role Phone Yael Neville MD Primary Care Provider [phone] Yael Neville MD Unavailable Frank Morrow Unavailable Unavailable Saul Freire Unavailable [phone] Gabino Peña MD Unavailable [phone] Alison Yan PA-C Unavailable [phone] Emmy Vance External Relations Manager MATERIALS CLERK SENIOR SOFTWARE DEVELOPER Unavailable [phone] Reason for Visit * Reason Comments Medication Refill Encounter Details Date Type Department Care Team (Late st Contact Info) Description 09/07/2019 Refill [facility] Jacek [address] [place] [address] Drive [address] [place] [address] Yael Neville MD [address] [place] [address] [place] [address] Medication Refill Social History [...] AM CDT Legal Sex Female 3:37 AM COATING MACHINE HELPER Gender Identity Female 08/26/2020 11:58 AM CDT [...] 09/09/2019 2:29 PM CDT Prescription approved per [facility] refill protocol. Liyah Centeno - Registered Nurse [facility] documented in this encounter Plan of Treatment Upcoming Encounters Date Type Department Care Team (Late st Contact Info) Description 06/19/2024 12:00 PM COATING MACHINE HELPER Infusion Therapy Visit [place] [address] [place] [address] [place] [phone] Jeff Wong MD [facility] [address] [place], [place] [phone] 06/24/2024 9:00 AM COATING MACHINE HELPER Infusion Therapy Visit [place] [address] [address] [place] [address] Jeff Wong MD [facility] [address] [place], [place] [address] 06/26/2024 2:00 PM COATING MACHINE HELPER Infusion Therapy Visit [facility] [address] [address] [place] [phone] Jeff Wong MD [facility] [address] [place], [place] [phone] documented as of this encounter Visit Diagnoses Diagnosis 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 Polycystic ovaries documented in this encounter Additional Health Concerns Infection Onset Date Last Indicated Resolved Time Rule Out COVID-19 01/14/2020 01/14/2020 01/15/2020 10:31 PM CDT Rule Out COVID-19 04/06/2020 04/06/2020 04/07/2020 10:32 AM COATING MACHINE HELPER Rule Out COVID-19 06/11/2020 06/11/2020 06/11/2020 7:00 PM COATING MACHINE HELPER Assessment Noted Time PHQ-9 Depression Total Score: 17 020 7:03 AM CDT documented as of this encounter Care Teams Propulsion Engineer Relationship Specialty Start Date End Date Yael Neville MD [address] [facility] [place] [address] PCP - General Internal Medicine 04/11/16 [place] [address] [place] [address] [place] [address] Assigned PCP 06/13/16 03/22/24 Frank Morrow Personal Advocate & Liaison (PAL) 03/11/19 11/03/19 Saul Freire LSW Clinic Cotton Presser Primary Care - CC 12/02/1903/20 Gabino Peña MD [address] [place] [address] Assigned Heart and Vascular Provider 02/21/20 07/03/21 Alison Yan PA-C [address] [place] [address] Assigned Sleep Provider 07/15/20 2 Emmy Vance Cnp, MARU DOWNS [employer] [place] [address], [place] [address] Nurse Practitioner Nurse Practitioner 08/26/20 documented as of this encounter
--- OUTSIDE RECORDS SUMMARY | 2024-06-05 17:58 | XMS_ITS | Encounter Summary ---
Author Organization [facility] Address [address] [place] [address]. [place] [address] Care Team Providers Care Wire Weaver Name Role Phone Yael Neville MD Primary Care Provider [phone]- [phone] Yael Neville MD Unavailable Frank Morrow Unavailable Unavailable Saul Freire Unavailable [phone] Gabino Peña MD Unavailable [phone] Alison Yan PA-C Unavailable [phone] Emmy Vance Refuse And Recycling Worker DELIVERY ROOM CLERK INSTRUCTOR WATCH ASSEMBLY Unavailable [phone] Reason for Visit * Reason Comments Medication Refill Lamictal 100 mg tabl et Encounter Details Date Type Department Care Team (Late st Contact Info) Description 07/03/2019 Refill [facility] Jacek [address] [place] [address] Drive [address] [place] [address] Yael Neville MD [address] [place] [address] [place] [address] Medication Refill (Lamictal 100 [...] AM CDT Legal Sex Female 3:37 AM GROUND SURVEILLANCE SYSTEMS OPERATOR Gender Identity Female 08/26/2020 11:58 AM CDT Sexual Orientation Choose not to disclose 2020 11:58 AM CDT documented as of this encounter Miscellaneous Notes * Telephone Encounter - oSfya Schmid MA - 07/10/2019 3:50 PM CDT [...] in last 12 months Meg Yancey RN [place] SURVEILLANCE SYSTEMS OPERATOR documented in this encounter Plan of Treatment Upcoming Encounters Date Type Department Care Team (Late st Contact Info) Description 06/19/2024 12:00 PM GROUND SURVEILLANCE SYSTEMS OPERATOR Infusion Therapy Visit [place] [address] [place] [address] [place] [address] Jeff Wong MD [facility] [address] [place], [place] [phone] 06/24/2024 9:00 AM GROUND SURVEILLANCE SYSTEMS OPERATOR Infusion Therapy Visit [facility] [address] [place] [address] [place] [address] Jeff Wong MD [facility] [address] [place] [address] 06/26/2024 2:00 PM GROUND SURVEILLANCE SYSTEMS OPERATOR Infusion Therapy Visit [place] [address] [address] [place] [address] Jeff Wong MD [facility] [address] [place], [place] [phone] documented as of this encounter Visit Diagnoses Diagnosis Moderate major depression (H) Major depressive disorder, single episode, moderate Generalized anxiety disorder documented in this encounter Additional Health Concerns Infection Onset Date Last Indicated Resolved Time Rule Out COVID-19 01/14/2020 01/14/2020 01/15/2020 10:31 PM CDT Rule Out COVID-19 04/06/2020 04/06/2020 04/07/2020 10:32 AM GROUND SURVEILLANCE SYSTEMS OPERATOR Rule Out COVID-19 06/11/2020 06/11/2020 06/11/2020 7:00 PM GROUND SURVEILLANCE SYSTEMS OPERATOR Assessment Noted Time PHQ-9 Depression Total Score: 8 05/15/19 7:02 AM GROUND SURVEILLANCE SYSTEMS OPERATOR documented as of this encounter Care Teams Wire Weaver Relationship Specialty Start Date End Date Yael Neville MD [address] [place] [address] [place] [address] PCP - General Internal Medicine 04/11/16 Yael Neville MD [address] [place] [address] [place] [address] Assigned PCP 06/13/16 03/22/24 Frank Morrow Personal Advocate & Liaison (PAL) 03/11/19 11/03/19 Saul Freire LSW Clinic Cluster Bore Operator Primary Care - CC 12/02/1903/20 Gabino Peña MD [address] [place] [address] Assigned Heart and Vascular Provider 02/21/20 07/03/21 Alison Yan PA-C [address] [place] [address] Assigned Sleep Provider 07/15/20 2 Emmy Vance Cnp, DELIVERY ROOM CLERK INSTRUCTOR WATCH ASSEMBLY [employer] [place] [address] [place] [address] Nurse Practitioner Nurse Practitioner 08/26/20 documented as of this encounter
--- OUTSIDE RECORDS SUMMARY | 2024-06-05 17:58 | XMS_ITS | Referral Summary ---
Author Organization [place] Address [facility] [place] [address] Care Team Providers Care Spout Liner Name Role Phone Yael Neville MD Primary Care Provider Emmy Vance Lurer ZIPPER LINING FOLDER SOLVENT PLANT TREATER Unavailable [phone]- [phone] Encounters Date Type Department Care Team Description 06/04/2024 Travel 06/04/2024 8:22 PM SOLUTION CONSULTANT - 06/04/2024 9:51 PM SOLUTION CONSULTANT Emergency [facility] Emergency Dept [address] [place] [phone] Sterling Salas MD Right leg pain; state, incidental Discharge Disposition: Home or Self Care 05/27/2024 Travel 05/27/2024 9:17 PM SOLUTION CONSULTANT - 05/27/2024 10:30 PM SOLUTION CONSULTANT Hospital Encounter [facility] [address] [place] [address] Triston Jiménez MD Discharge Disposition: Home or Self Care 05/27/2024 Orders Only [facility] [address] [facility] [place] [address] Jeff Wong MD Iron deficiency anemia, unspecified (Primary Dx); Anemia complicating in third trimester 05/21/2024 Medical Correspondence [facility] [address] [facility] [address] [place] [address] Scan, Non-Provider 04/05/2024 Travel 04/05/2024 4:55 AM SOLUTION CONSULTANT - 04/05/2024 5:54 AM SOLUTION CONSULTANT Emergency [facility] Emergency Dept [address] [place] [address] Juan Mares MD Sore throat; Acute cough [...] % nasal sprayIndication s:Suspected COVID-19 virus infection [place] 2 sprays in nostril 4 times daily 15 mL 1 02/22/2021 Active guaiFENesin 1200 MG [id number] :Suspected COVID-19 virus infection Take 1 tablet [...] AM CDT Legal Sex Female 3:37 AM SOLUTION CONSULTANT Gender Identity Female 08/26/2020 11:58 AM CDT Sexual Orientation Choose not to disclose 2020 11:58 AM CDT Last Filed Vital Signs Vital Sign Reading Time Taken Comments Blood Pressure 125/79 06/04/2024 7:54 PM SOLUTION CONSULTANT Pulse 85 06/04/2024 7:53 PM SOLUTION CONSULTANT Temperature 37.2 C (99 F) 06/04/2024 7:53 PM SOLUTION CONSULTANT Respiratory Rate 18 06/04/2024 7:53 PM SOLUTION CONSULTANT Oxygen Saturation 98% 06/04/2024 7:53 PM SOLUTION CONSULTANT Inhaled Oxygen Concentration - - Weight 100.9 kg (222 lb 7.1 oz) 06/04/2024 7:53 PM SOLUTION CONSULTANT Height 167.6 cm (5' 6) 06/04/2024 7:53 PM SOLUTION CONSULTANT Body Mass Index 35.9 06/04/2024 7:53 PM SOLUTION CONSULTANT Plan of Treatment Upcoming Encounters Date Type Department Care Team (Late st Contact Info) Description 06/19/2024 12:00 PM SOLUTION CONSULTANT Infusion Therapy Visit [address] [place] [address] Jeff Wong MD [facility] [address] [place] [address] 06/24/2024 9:00 AM SOLUTION CONSULTANT Infusion Therapy Visit [facility] [address] [place] [address] Jeff Wong MD [facility] [address] [place] [address] 06/26/2024 2:00 PM SOLUTION CONSULTANT Infusion Therapy [facility] [address] [place] [address] Jeff Wong MD [facility] [address] [place] [address] Procedures Procedure Name Priority Date/Time Associated Diagnosis Comments US LOWER EXTREMITY VENOUS DUPLEX RIGHT STAT 06/04/2024 9:26 PM SOLUTION CONSULTANT LAB RESULT - HIM SCAN 05/20/2024 12:00 AM SOLUTION CONSULTANT XRAY IMAGING - HIM SCAN 04/08/2024 12:00 AM SOLUTION CONSULTANT GROUP A STREPTOCOCCUS PCR THROAT SWAB STAT 04/05/2024 4:55 AM SOLUTION CONSULTANT INFLUENZA A/B, RSV AND SARS-COV2 PCR STAT 04/05/2024 4:55 AM SOLUTION CONSULTANT CHLAMYDIA TRACHOMATIS/NEISSERI A GONORRHOEAE BY PCR Routine 06/29/2022 4:48 PM SOLUTION CONSULTANT Encounter for screening for infections with a predominantly sexual mode of transmission GYNECOLOGIC CYTOLOGY Routine 06/29/2022 4:06 PM SOLUTION CONSULTANT Encounter for screening for malignant neoplasm of [...] Extremity Venous Duplex Right (06/04/2024 9:26 PM SOLUTION CONSULTANT) Anatomical Region Laterality Modality Lower Extremity Ultrasound 06/04/2024 9:26 PM SOLUTION CONSULTANT Impressions 06/04/2024 9:34 PM SOLUTION CONSULTANT IMPRESSION: 1. No deep venous thrombosis in the right lower extremity. Narrative 06/04/2024 9:34 PM SOLUTION CONSULTANT EXAM: US LOWER EXTREMITY VENOUS DUPLEX RIGHT LOCATION: DATE: 06/04/2024 INDICATION: 31 weeks , leg [...] US LOWER EXTREMITY VENOUS DUPLEX RIGHT LOCATION: DATE: 06/04/2024 INDICATION: 31 weeks , leg [...] Result - HIM Scan (05/20/2024 12:00 AM SOLUTION CONSULTANT) 05/20/2024 Provider Outside NON-BEAKER LAB TESTING Final Result * Xray Imaging - HIM Scan (04/08/2024 12:00 AM SOLUTION CONSULTANT) Anatomical Region Laterality Modality Other 04/08/2024 us Provider Outside IMG DIAGNOSTIC IMAGING ORDERABL ES Final Result * Influenza A/B, RSV and SARS-CoV2 PCR (COVID-19) Nose (04/05/2024 4:55 AM SOLUTION CONSULTANT) Influenza A PCR Negative Negative 04/05/2024 5:41 AM SOLUTION CONSULTANT [facility] Influenza B PCR Negative Negative 04/05/2024 5:41 AM SOLUTION CONSULTANT [facility] RSV PCR Negative Negative 04/05/2024 5:41 AM SOLUTION CONSULTANT [facility] SARS CoV2 PCR Negative Negative 04/05/2024 5:41 AM SOLUTION CONSULTANT [facility] Comment:NEGATIVE: SARS-CoV-2 (COVID-19) RNA not detected, presumed negative. Swab NASAL STRUCTURE / Unknown Non-blood Collection / Unknown 04/05/2024 4:55 AM SOLUTION CONSULTANT 04/05/2024 5:02 AM SOLUTION CONSULTANT Narrative [facility] - 04/05/2024 5:41 AM SOLUTION CONSULTANT Testing was performed using the Xpert Xpress CoV2/Flu/RSV Assay on the [employer] GeneXpert Instrument. This test should be ordered [...] management. This test was validated by the [facility]. These laboratories are certified under the Clinical Laboratory Improvement Amendments of 1988 (CLIA-88) as qualified to perfom high complexity laboratory testing. Juan Mares MD LAB - MICRO GENER AL ORDERABLES Final Result [facility] [address] ([facility]st [facility], no room number) [place] [address] * Group A Streptococcus PCR Throat Swab (04/05/2024 4:55 AM SOLUTION CONSULTANT) Pathologist [facility] Group A strep by PCR Not Detected Not Detected 04/05/2024 5:29 AM SOLUTION CONSULTANT LABORATORY Swab STRUCTURE OF ANTERIOR PORTION OF NECK / Unknown Non-blood Collection / Unknown 04/05/2024 4:55 AM SOLUTION CONSULTANT 04/05/2024 5:02 AM SOLUTION CONSULTANT Narrative LABORATORY - 04/05/2024 5:29 AM SOLUTION CONSULTANT The Xpert Xpress Strep A test, performed on the [employer], is a rapid, qualitative in vitro [...] AL ORDERABLES Final Result Performing Organization Address [facility] Co de Phone Number [facility] [address] (1st floor, no room number) [place] [address] * Chlamydia trachomatis/Neisseria gonorrhoeae by PCR (06/29/2022 4:48 PM SOLUTION CONSULTANT) Chlamydia Trachomatis Negative Negative 06/30/2022 12:02 PM SOLUTION CONSULTANT [facility] Comment: Negative for C. trachomatis rRNA by electronics commodity manager mediated amplification. A negative result by electronics commodity manager mediated amplification does not preclude the presence of infection because results are dependent on proper and adequate collection, absence of inhibitors and sufficient rRNA to be detected. Neisseria gonorrhoeae Negative Negative 06/30/2022 12:02 PM SOLUTION CONSULTANT [facility] Comment:Negative for N. gono rrhoeae rRNA by electronics commodity manager mediated amplification. A negative result by electronics commodity manager mediated amplification does not preclude the presence of C. trachomatis infection because results are dependent on proper and adequate collection, absence of inhibitors and sufficient rRNA to be detected. Swab VAGINAL STRUCTURE / Unknown Non-blood Collection / Unknown 06/29/2022 4:48 PM SOLUTION CONSULTANT 06/29/2022 8:05 PM SOLUTION CONSULTANT Rabia Aguilar MD LAB - MICRO G ENERAL ORDERABLES Final Result [facility] Inf. Diseases Diag. Lab [address] [facility] [place] [address], [place] [phone] * Gynecologic Cytology (PAP) (06/29/2022 4:06 PM SOLUTION CONSULTANT) Interpretation Negative for Intraepithelial Lesion or Malignancy (NILM) 07/04/2022 10:47 AM [facility] Comment Papanicolaou Test Limitations: Cervical cytology is a screening test with limited sensitivity, and regular screening is critical for cancer prevention. Pap tests are primarily effective for the diagnosis/prevent ion of squamous cell carcinoma, not adenocarcinoma or other cancers. 07/04/2022 10:47 AM SOLUTION CONSULTANT [facility] Specimen Adequacy Satisfactory for evaluation, endocervical/holcomb sformation zone component present 07/04/2022 10:47 AM [facility] Clinical Information none 07/04/2022 10:47 AM SOLUTION CONSULTANT [facility] LMP/Menopause Date 06/04/22 07/04/2022 10:47 AM SOLUTION CONSULTANT [facility] Reflex Testing Yes if ASCUS 07/05/19 10:47 AM SOLUTION CONSULTANT [facility] Previous Abnormal? No 07/04/2022 10:47 AM SOLUTION CONSULTANT [facility] Previous Abnormal Diagnosis negative 07/04/2022 10:47 AM SOLUTION CONSULTANT [facility] Performing Labs The technical component of this testing was completed at [facility] 07/04/2022 10:47 AM [facility] Brushing ENDOCERVICAL STRUCTURE / Unknown 06/29/2022 4:06 PM SOLUTION CONSULTANT 06/29/2022 8:03 PM SOLUTION CONSULTANT Rabia RECINOS - TYRONE AP Final Result [facility] [address] [facility], [address] [address], [place] [phone] * HIV Antigen Antibody Combo (10/28/2020 4:20 PM CDT) HIV Antigen Antibody Combo Nonreactive NR^Nonrea ctive 10/29/2020 4:34 PM CDT [facility] Comment:HIV-1 p24 Ag & HIV-1 /HIV-2 Ab Not Detected Blood 10/28/2020 4:20 PM CDT 10/28/2020 4:21 PM CDT Yael Neville MD LAB - BLOOD ORDERABLES Cary l Result Performing Organization Address City/[facility]/ZIP Co de Phone Number [address] [address] * Hepatitis C Screen Reflex to HCV RNA Quant and Genotype (10/28/2020 4:20 PM CDT) Hepatitis C Antibody Nonreactive NR^Nonre active 10/29/2020 4:41 PM CDT [facility] Comment: Assay performance characteristics have not been established for newborns, infants, and children Blood 10/28/2020 4:20 PM CDT 10/28/2020 4:21 PM CDT Yael Neville MD LAB - BLOOD ORDERABLES Cary l Result [facility] [address] [place] [address] from Last 3 Months or Most Recently Relevant to Health Maintenance Insurance [facility] COMMERCIAL [facility] CORE [facility] [employer] [facility] [place] Address: [address] [address] [facility] Advance Directives For more information, please contact: [phone] * Full Code (Latest Code Status on File) Date Activated Date Inactivated Comments 10/10/2019 12:38 PM 10/11/2019 4:37 PM Question Answer Comments Code status determined by: Discussion with charlene nt/legal decision maker Care Teams Spout Liner Relationship Specialty Start Date End Date Yael Neville MD [address] [place] [address] PCP - General Internal Medicine 04/11/16 Emmy Vance Lurer, ZIPPER LINING FOLDER SOLVENT PLANT TREATER [employer] [place] [address] [place] [address] Nurse Practitioner Nurse Practitioner 08/26/20
--- OUTSIDE RECORDS SUMMARY | 2024-06-05 17:58 | XMS_ITS | Encounter Summary ---
Author Organization [place] Address [facility] [place] [address] Care Team Providers Care Embryology Professor Name Role Phone Yael Neville MD Primary Care Provider [phone] Emmy Vance Cash Applications Coordinator PILLOWCASE SEWER SALES AND MARKETING AGENT Unavailable +- [phone] Encounter Details Date Type Department Care Team (Late st Contact Info) Description 05/21/2024 Medical Correspondence [facility] Information Management [address] [facility] [address] [place] [address] Scan, Non-Provider Social History Tobacco Use Types [...] AM CDT Legal Sex Female 3:37 AM RETAIL BANKER Gender Identity Female 08/26/2020 11:58 AM CDT Sexual Orientation Choose not to disclose 2020 11:58 AM CDT documented as of this encounter Plan of Treatment Upcoming Encounters Date Type Department Care Team (Late st Contact Info) Description 06/19/2024 12:00 PM RETAIL BANKER Infusion Therapy Visit [facility] [address] [place] [address] Jeff Wong MD [facility] [address] [place] [address] 06/24/2024 9:00 AM RETAIL BANKER Infusion Therapy Visit [facility] [address] [place] [address] Jeff Wong MD [facility] [address] [place] [address] 06/26/2024 2:00 PM RETAIL BANKER Infusion Therapy Visit [place] [address] [place] [address] Jeff Wong MD [facility] [address] [place] [address] documented as of this encounter Visit Diagnoses Not on filedocumented in this encounter Additional Health Concerns Assessment Noted Time PHQ-9 Depression Total Score: 1 10/30/19 21 7:05 AM CDT documented as of this encounter Care Teams Embryology Professor Relationship Specialty Start Date End Date Yael Neville MD [facility] [facility] [address] [place] [address] PCP - General Internal Medicine 04/11/16 Emmy Vance Cnp, PILLOWCASE SEWER SALES AND MARKETING AGENT [facility] [employer] [facility] [place] [address] [place] [address] Nurse Practitioner Nurse Practitioner 08/26/20 documented as of this encounter
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
--- OUTSIDE RECORDS SUMMARY | 2024-06-05 17:58 | XMS_ITS | Encounter Summary ---
Author Organization [place] Address [address] [place] [address]. [place] [address] Care Team Providers Care Floral Arranger Name Role Phone Yael Neville MD Primary Care Provider [phone] Yael Neville MD Unavailable Frank Morrow Unavailable Unavailable Saul Freire Unavailable [phone] Gabino Peña MD Unavailable [phone] Alison Yan PA-C Unavailable [phone] Emmy Vance Biology Specialist MUCK FARMER RECORDS CLERK Unavailable [phone] Encounter Details Date Type Department Care Team (Late st Contact Info) Description 10/07/2019 MyC Medical Advice [facility] Jacek [address] [facility] [address] [place] [address] Yael Neville MD [address] [facility] [place] [address] Social History Tobacco [...] AM CDT Legal Sex Female 3:37 AM DEGREASER OPERATOR Gender Identity Female 08/26/2020 11:58 AM [...] She should be able to print from [employer]. Yael Neville M.D. documented in this encounter Plan of Treatment Upcoming Encounters Date Type Department Care Team (Late st Contact Info) Description 06/19/2024 12:00 PM DEGREASER OPERATOR Infusion Therapy Visit [place] [address] [place] [address] [place] [address] Jeff Wong MD [facility] [address] [place] [address] 06/24/2024 9:00 AM DEGREASER OPERATOR Infusion Therapy Visit [facility] [address] [place] [address] Jeff Wong MD [facility] [address] [place] [address] 06/26/2024 2:00 PM DEGREASER OPERATOR Infusion Therapy Visit [facility] [address] [place] [address] Jeff Wong MD [facility] [address] [place], [place] [address] documented as of this encounter Visit Diagnoses Not on filedocumented in this encounter Additional Health Concerns Infection Onset Date Last Indicated Resolved Time Rule Out COVID-19 01/14/2020 01/14/2020 01/15/2020 10:31 PM CDT Rule Out COVID-19 04/06/2020 04/06/2020 04/07/2020 10:32 AM DEGREASER OPERATOR Rule Out COVID-19 06/11/2020 06/11/2020 06/11/2020 7:00 PM DEGREASER OPERATOR Assessment Noted Time PHQ-9 Depression Total Score: 16 020 8:26 AM CDT documented as of this encounter Care Teams Floral Arranger Relationship Specialty Start Date End Date Yael Neville MD [address] [facility] [place] [address] PCP - General Internal Medicine 04/11/16 Yael Neville MD [address] [facility] [place] [address] Assigned PCP 06/13/16 03/22/24 Frank Morrow Personal Advocate & Liaison (PAL) 03/11/19 11/03/19 Saul Freire LSW Clinic Metal Sash Setter Primary Care - CC 12/02/1903/20 Gabino Peña MD [address] [place] [address] Assigned Heart and Vascular Provider 02/21/20 07/03/21 Alison Yan PA-C [address] [place] [id number] Assigned Sleep Provider 07/15/20 2 Emmy Vance Cnp, MARU RECORDS CLERK [employer] [place] [address] [id number] Nurse Practitioner Nurse Practitioner 08/26/20 documented as of this encounter
--- OUTSIDE RECORDS SUMMARY | 2024-06-05 17:58 | XMS_ITS | Encounter Summary ---
Author Organization [place] Address [address] [place] [address]. [place] [address] Care Team Providers Care Twitchell Operator Name Role Phone Yael Neville MD Primary Care Provider [phone] Yael Neville MD Unavailable [phone] Gabino Peña MD Unavailable [phone] Alison Yan PAAshlyC Unavailable [phone] Emmy Vance Drug Department Worker CRIMINAL INVESTIGATOR [employer] Unavailable [phone] Encounter Details Date Type Department Care Team (Late st Contact Info) Description 07/22/2020 MyC Medical Advice [address] [place] [phone] Mikki Gonzalez Social History Tobacco Use [...] AM CDT Legal Sex Female 3:37 AM CRYSTAL GRINDER Gender Identity Female 08/26/2020 11:58 AM CDT Sexual Orientation Choose not to disclose 2020 11:58 AM CDT documented as of this encounter Plan of Treatment Upcoming Encounters Date Type Department Care Team (Late st Contact Info) Description 06/19/2024 12:00 PM CRYSTAL GRINDER Infusion Therapy [place] [address] [place] [phone] Jeff Wong MD [facility] [address] [place], [place] [phone] 06/24/2024 9:00 AM CRYSTAL GRINDER Infusion Therapy Visit [facility] [address] [place] [phone] Jeff Wong MD [facility] [address] [place] [address] 06/26/2024 2:00 PM CRYSTAL GRINDER Infusion Therapy Visit [facility] [address] [place] [phone] Jeff Wong MD [facility] [address] [place] [address] documented as of this encounter Visit Diagnoses Not on filedocumented in this encounter Additional Health Concerns Assessment Noted Time PHQ-9 Depression Total Score: 16 020 8:26 AM CDT documented as of this encounter Care Teams Twitchell Operator Relationship Specialty Start Date End Date Yael Neville MD [address] [place] [address] [place] [address] PCP - General Internal Medicine 04/11/16 [place] [address] [place] [address] [place] [address] Assigned PCP 06/13/16 03/22/24 Gabino Peña MD [address] [place] [address] Assigned Heart and Vascular Provider 02/21/20 07/03/21 Alison Yan PA-C [address] [place] [address] Assigned Sleep Provider 07/15/20 2 Emmy Vance Cnp, APRN CNP [employer] [place] [address] [place] [address] Nurse Practitioner Nurse Practitioner 08/26/20 documented as of this encounter
--- OUTSIDE RECORDS SUMMARY | 2024-06-05 17:58 | XMS_ITS | Encounter Summary ---
Author Organization [place] Address [address] [place] [address]. [place] [address] Care Team Providers Care Industrial Automation Engineer Name Role Phone Yael Neville MD Primary Care Provider [phone] Yael Neville MD Unavailable [phone] Frank Morrow Unavailable Unavailable Saul Freire Unavailable [phone] Gabino Peña MD Unavailable [phone] Alison Yan PA-C Unavailable [phone] Emmy Vance Cnp BEAD INSPECTOR FULL STACK WEB DEVELOPER Unavailable [phone] Encounter Details Date Type Department Care Team [...] AM CDT Legal Sex Female 3:37 AM ORGAN PIPE FINISHER Gender Identity Female 08/26/2020 11:58 AM CDT Sexual Orientation Choose not to disclose 2020 11:58 AM CDT documented as of this encounter Plan of Treatment Upcoming Encounters Date Type Department Care Team (Late st Contact Info) Description 06/19/2024 12:00 PM ORGAN PIPE FINISHER Infusion Therapy Visit [facility] [address] [place] [phone] Jeff Wong MD [facility] [address] [place], [place] [phone] 06/24/2024 9:00 AM ORGAN PIPE FINISHER Infusion Therapy Visit [facility] [address] [place] [phone] Jeff Wong MD [facility] [address] [place] [address] 06/26/2024 2:00 PM ORGAN PIPE FINISHER Infusion Therapy Visit [facility] [address] [place] [phone] Jeff Wong MD [facility] [address] [place], [place] [phone] documented as of this encounter Visit Diagnoses Not on filedocumented in this encounter Additional Health Concerns Infection Onset Date Last Indicated Resolved Time Rule Out COVID-19 01/14/2020 01/14/2020 01/15/2020 10:31 PM CDT Rule Out COVID-19 04/06/2020 04/06/2020 04/07/2020 10:32 AM ORGAN PIPE FINISHER Rule Out COVID-19 06/11/2020 06/11/2020 06/11/2020 7:00 PM ORGAN PIPE FINISHER Assessment Noted Time PHQ-9 Depression Total Score: 17 020 7:03 AM CDT documented as of this encounter Care Teams Industrial Automation Engineer Relationship Specialty Start Date End Date Yael Neville MD [address] [place] [address] [place] [address] PCP - General Internal Medicine 04/11/16 Yael Neville MD [address] [facility] [place] [id number] Assigned PCP 06/13/16 03/22/24 Frank Morrow Personal Advocate & Liaison (PAL) 03/11/19 11/03/19 Saul Freire LSW Clinic Finger Cobbler Primary Care - CC 12/02/1903/20 Gabino Peña MD [address] [place] [address] Assigned Heart and Vascular Provider 02/21/20 07/03/21 Alison Yan PA-C [address] [place] [address] Assigned Sleep Provider 07/15/20 2 Emmy Vance Cnp, APRN FULL STACK WEB DEVELOPER [employer] [place] [id number] [place] [address] Nurse Practitioner Nurse Practitioner 08/26/20 documented as of this encounter
--- OUTSIDE RECORDS SUMMARY | 2024-06-05 17:58 | XMS_ITS | Encounter Summary ---
Author Organization [place] Address [address] [place] [address]. [place] [address] Care Team Providers Care Site Auditor Name Role Phone Yael Neville MD Primary Care Provider [phone] Yael Neville MD Unavailable [phone] Frank Morrow Unavailable Unavailable Saul Freire Unavailable [phone] Gabino Peña MD Unavailable [phone] Alison Yan PA-C Unavailable [phone] Emmy Vance Superintendent Warehouse LEAD AUDITOR PSYCHIATRY INSTRUCTOR Unavailable [phone] Reason for Visit * Reason Comments Medication Refill Encounter Details Date Type Department Care Team (Late st Contact Info) Description 06/26/2019 Refill [facility] [address] [place] [address] [address] [place] [phone] Yael Neville MD [address] [place] [address] [place] [address] Medication Refill Social History [...] AM CDT Legal Sex Female 3:37 AM DRAW FRAME TENDER Gender Identity Female 08/26/2020 11:58 AM CDT Sexual Orientation Choose not to disclose 2020 11:58 AM CDT documented as of this encounter Miscellaneous Notes * Telephone Encounter - Arin Tay RN - 06/27/2019 9:51 AM DRAW FRAME TENDER Prescription approved per [facility] Refill Protocol. FRAME TENDER documented in this encounter Plan of Treatment Upcoming Encounters Date Type Department Care Team (Late st Contact Info) Description 06/19/2024 12:00 PM DRAW FRAME TENDER Infusion Therapy Visit [place] [address] [place] [phone] Jeff Wong MD [facility] [address] [place], [place] [phone] 06/24/2024 9:00 AM DRAW FRAME TENDER Infusion Therapy Visit [place] [address] [place] [phone] Jeff Wong MD [facility] [address] [place], [place] [phone] 06/26/2024 2:00 PM DRAW FRAME TENDER Infusion Therapy Visit [facility] [address] [place] [phone] Jeff Wong MD [facility] [address] [place], [place] [phone] documented as of this encounter Visit Diagnoses Diagnosis 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 Polycystic ovaries documented in this encounter Additional Health Concerns Infection Onset Date Last Indicated Resolved Time Rule Out COVID-19 01/14/2020 01/14/2020 01/15/2020 10:31 PM CDT Rule Out COVID-19 04/06/2020 04/06/2020 04/07/2020 10:32 AM DRAW FRAME TENDER Rule Out COVID-19 06/11/2020 06/11/2020 06/11/2020 7:00 PM DRAW FRAME TENDER Assessment Noted Time PHQ-9 Depression Total Score: 8 05/15/19 7:02 AM DRAW FRAME TENDER documented as of this encounter Care Teams Site Auditor Relationship Specialty Start Date End Date Yael Neville MD [facility] [place] [address] PCP - General Internal Medicine 04/11/16 Yael Neville MD [address] [place] [address] [place] [address] Assigned PCP 06/13/16 03/22/24 Frank Morrow Personal Advocate & Liaison (PAL) 03/11/19 11/03/19 Saul Freire LSW Clinic Host/Hostess Head Primary Care - CC 12/02/1903/20 Gabino Peña MD [address] [place] [address] Assigned Heart and Vascular Provider 02/21/20 07/03/21 Alison Yan PA-C [address] [place] [address] Assigned Sleep Provider 07/15/20 2 Emmy Vance Superintendent Warehouse, MARU PSYCHIATRY INSTRUCTOR [employer] [facility] [address] [place] [address] Nurse Practitioner Nurse Practitioner 08/26/20 documented as of this encounter
--- OUTSIDE RECORDS SUMMARY | 2024-06-05 17:58 | XMS_ITS | Encounter Summary ---
Author Organization [place] Address [address] [place] [address]. [place] [address] Care Team Providers Care Tow Bar Driver Name Role Phone Yael Neville MD Primary Care Provider [phone] Emmy Vance Production Supervisor Off Shift DIRECTOR INTERNATIONAL TIRE FIXER Unavailable [phone] Encounter Details Date Type Department Care Team [...] AM CDT Legal Sex Female 3:37 AM ALL SOURCE INTELLIGENCE Gender Identity Female 08/26/2020 11:58 AM CDT Sexual Orientation Choose not to disclose 2020 11:58 AM CDT documented as of this encounter Plan of Treatment Upcoming Encounters Date Type Department Care Team ( st Contact Info) Description 06/19/2024 12:00 PM ALL SOURCE INTELLIGENCE Infusion Therapy Visit [facility] [address] [place] [phone] Jeff Wong MD [facility] [address] [place], [place] [phone] 06/24/2024 9:00 AM ALL SOURCE INTELLIGENCE Infusion Therapy Visit [facility] [address] [place] [address] [place] [phone] Jeff Wong MD [facility] [address] [place], [place] [phone] 06/26/2024 2:00 PM ALL SOURCE INTELLIGENCE Infusion Therapy Visit [facility] [address] [place] [address] [place] [phone] Jeff Wong MD [facility] [address] [place] [address] documented as of this encounter Visit Diagnoses Not on filedocumented in this encounter Additional Health Concerns Assessment Noted Time PHQ-9 Depression Total Score: 1 10/30/19 21 7:05 AM CDT documented as of this encounter Care Teams Tow Bar Driver Relationship Specialty Start Date End Date Yael Neville MD [address] [place] [address] [place] [address] PCP - General Internal Medicine 04/11/16 Emmy Vance Cnp, DIRECTOR INTERNATIONAL TIRE FIXER [facility] [employer] [place] [address] [place], [place] [phone] Nurse Practitioner Nurse Practitioner 08/26/20 documented as of this encounter
--- OUTSIDE RECORDS SUMMARY | 2024-06-05 17:58 | XMS_ITS | Clinical Summary ---
Author Organization [place] Address [address] [place] [address]. [place] [address] Care Team Providers Care Rehabilitator Name Role Phone Yael Neville MD Primary Care Provider Emmy Vance Tennis Professional MANAGER EMPLOYEE RELATIONS MOBILE SALES CONSULTANT Unavailable [phone] Allergies Active Allergy Reactions Criticality Noted Date [...] % nasal sprayIndication s:Suspected COVID-19 virus infection [place] 2 sprays in nostril 4 times daily 15 mL 1 02/22/2021 Active guaiFENesin 1200 MG [id number] :Suspected COVID-19 virus infection Take 1 tablet [...] Department Care Team Description 06/04/2024 8:22 PM REFRACTORY REPAIRER - 06/04/2024 9:51 PM REFRACTORY REPAIRER Emergency [facility] Emergency Dept [address] [place] [address] Sterling Salas MD Right leg pain; state, incidental Discharge Disposition: Home or Self Care 06/04/2024 Travel 05/27/2024 9:17 PM REFRACTORY REPAIRER - 05/27/2024 10:30 PM [facility] Hospital Encounter [facility] [address] [address] Triston Jiménez MD Discharge Disposition: Home or Self Care 05/27/2024 Travel 05/27/2024 Orders Only [facility] [address], [address] [place] [address] Jeff Wong MD Iron deficiency anemia, unspecified (Primary Dx); Anemia complicating in third trimester 05/21/2024 Medical Correspondence [facility] Information Management [address] [facility] [address] [place] [address] Scan, Non-Provider 04/05/2024 4:55 AM REFRACTORY REPAIRER - 04/05/2024 5:54 AM REFRACTORY REPAIRER Emergency [facility] Emergency Dept [address] [place] [address] Juan Mares MD Sore throat; Acute cough [...] AM CDT Legal Sex Female 3:37 AM REFRACTORY REPAIRER Gender Identity Female 08/26/2020 11:58 AM CDT Sexual Orientation Choose not to disclose 2020 11:58 AM CDT Last Filed Vital Signs Vital Sign Reading Time Taken Comments Blood Pressure 125/79 06/04/2024 7:54 PM REFRACTORY REPAIRER Pulse 85 06/04/2024 7:53 PM REFRACTORY REPAIRER Temperature 37.2 C (99 F) 06/04/2024 7:53 PM REFRACTORY REPAIRER Respiratory Rate 18 06/04/2024 7:53 PM REFRACTORY REPAIRER Oxygen Saturation 98% 06/04/2024 7:53 PM REFRACTORY REPAIRER Inhaled Oxygen Concentration - - Weight 100.9 kg (222 lb 7.1 oz) 06/04/2024 7:53 PM REFRACTORY REPAIRER Height 167.6 cm (5' 6) 06/04/2024 7:53 PM REFRACTORY REPAIRER Body Mass Index 35.9 06/04/2024 7:53 PM REFRACTORY REPAIRER Plan of Treatment Upcoming Encounters Date Type Department Care Team (Late st Contact Info) Description 06/19/2024 12:00 PM REFRACTORY REPAIRER Infusion Therapy Visit [facility] [address] [place] [phone] Jeff Wong MD [facility] [address] [place], [place] [phone] 06/24/2024 9:00 AM REFRACTORY REPAIRER Infusion Therapy Visit [facility] [address] [place] [address] [place] [phone] Jeff Wong MD [facility] [address] [place] [address] 06/26/2024 2:00 PM REFRACTORY REPAIRER Infusion Therapy Visit [facility] [address] [place] [address] [place] [phone] Jeff Wong MD [facility] [address] [place] [address] Health Maintenance Due Date Last Done Comments [...] VENOUS DUPLEX RIGHT STAT 06/04/2024 9:26 PM REFRACTORY REPAIRER LAB RESULT - HIM SCAN 05/20/2024 12:00 AM REFRACTORY REPAIRER XRAY IMAGING - HIM SCAN 04/08/2024 12:00 AM REFRACTORY REPAIRER GROUP A STREPTOCOCCUS PCR THROAT SWAB STAT 04/05/2024 4:55 AM REFRACTORY REPAIRER INFLUENZA A/B, RSV AND SARS-COV2 PCR STAT 04/05/2024 4:55 AM REFRACTORY REPAIRER CHLAMYDIA TRACHOMATIS/NEISSERI A GONORRHOEAE BY PCR Routine 06/29/2022 4:48 PM REFRACTORY REPAIRER Encounter for screening for infections with a predominantly sexual mode of transmission GYNECOLOGIC CYTOLOGY Routine 06/29/2022 4:06 PM REFRACTORY REPAIRER Encounter for screening for malignant neoplasm of [...] Extremity Venous Duplex Right (06/04/2024 9:26 PM REFRACTORY REPAIRER) Anatomical Region Laterality Modality Lower Extremity Ultrasound 06/04/2024 9:26 PM REFRACTORY REPAIRER Impressions 06/04/2024 9:34 PM REFRACTORY REPAIRER IMPRESSION: 1. No deep venous thrombosis in the right lower extremity. Narrative 06/04/2024 9:34 PM REFRACTORY REPAIRER EXAM: US LOWER EXTREMITY VENOUS DUPLEX RIGHT LOCATION: [facility] DATE: 06/04/2024 INDICATION: 31 weeks , leg [...] US LOWER EXTREMITY VENOUS DUPLEX RIGHT LOCATION: [facility] DATE: 06/04/2024 INDICATION: 31 weeks , leg [...] the right lower extremity. Sterling Salas MD [facility] US ORDERABLES Final R esult * Lab Result - HIM Scan (05/20/2024 12:00 AM REFRACTORY REPAIRER) 05/20/2024 Provider Outside NON-BEAKER LAB TESTING Final Result * Xray Imaging - HIM Scan (04/08/2024 12:00 AM REFRACTORY REPAIRER) Anatomical Region Laterality Modality Other 04/08/2024 Provider Outside IMG DIAGNOSTIC IMAGING ORDERABL ES Final Result * Influenza A/B, RSV and SARS-CoV2 PCR (COVID-19) Nose (04/05/2024 4:55 AM REFRACTORY REPAIRER) Influenza A PCR Negative Negative 04/05/2024 5:41 AM REFRACTORY REPAIRER [facility] Influenza B PCR Negative Negative 04/05/2024 5:41 AM REFRACTORY REPAIRER [facility] RSV PCR Negative Negative 04/05/2024 5:41 AM REFRACTORY REPAIRER [facility] SARS CoV2 PCR Negative Negative 04/05/2024 5:41 AM REFRACTORY REPAIRER [facility] Comment:NEGATIVE: SARS-CoV-2 (COVID-19) RNA not detected, presumed negative. Swab NASAL STRUCTURE / Unknown Non-blood Collection / Unknown 04/05/2024 4:55 AM REFRACTORY REPAIRER 04/05/2024 5:02 AM REFRACTORY REPAIRER Narrative [facility] - 04/05/2024 5:41 AM REFRACTORY REPAIRER Testing was performed using the Xpert Xpress CoV2/Flu/RSV Assay on the [employer] GeneXpert Instrument. This test should be ordered [...] management. This test was validated by the [facility]. These laboratories are certified under the Clinical Laboratory Improvement Amendments of 1988 (CLIA-88) as qualified to perfom high complexity laboratory testing. Juan Mares MD LAB - MICRO GENER AL ORDERABLES Final Result Performing Organization Address [facility]/ZIP Co de Phone Number [facility] [address] (1st floor, no room number) [place] [phone] * Group A Streptococcus PCR Throat Swab (04/05/2024 4:55 AM REFRACTORY REPAIRER) Group A strep by PCR Not Detected Not Detected 04/05/2024 5:29 AM REFRACTORY REPAIRER LABORATORY Swab STRUCTURE OF ANTERIOR PORTION OF NECK / Unknown Non-blood Collection / Unknown 04/05/2024 4:55 AM REFRACTORY REPAIRER 04/05/2024 5:02 AM REFRACTORY REPAIRER Narrative LABORATORY - 04/05/2024 5:29 AM REFRACTORY REPAIRER The Xpert Xpress Strep A test, performed on the [employer] Instrument Systems, is a rapid, qualitative in [...] AL ORDERABLES Final Result Performing Organization Address [facility] Co de Phone Number [facility] [address] (1st floor, no room number) [place] [address] * Chlamydia trachomatis/Neisseria gonorrhoeae by PCR (06/29/2022 4:48 PM REFRACTORY REPAIRER) Chlamydia Trachomatis Negative Negative 06/30/2022 12:02 PM REFRACTORY REPAIRER [facility] Comment: Negative for C. trachomatis rRNA by polymer chemist mediated amplification. A negative result by polymer chemist mediated amplification does not preclude the presence of infection because results are dependent on proper and adequate collection, absence of inhibitors and sufficient rRNA to be detected. Neisseria gonorrhoeae Negative Negative 06/30/2022 12:02 PM REFRACTORY REPAIRER [facility] Comment:Negative for N. gono rrhoeae rRNA by polymer chemist mediated amplification. A negative result by polymer chemist mediated amplification does not preclude the presence of C. trachomatis infection because results are dependent on proper and adequate collection, absence of inhibitors and sufficient rRNA to be detected. Swab VAGINAL STRUCTURE / Unknown Non-blood Collection / Unknown 06/29/2022 4:48 PM REFRACTORY REPAIRER 06/29/2022 8:05 PM REFRACTORY REPAIRER Rabia Aguilar MD LAB - MICRO G ENERAL ORDERABLES Final Result [facility] Inf. Diseases Diag. Lab [address] [facility] [place] [address], [facility] [phone] * Gynecologic Cytology (PAP) (06/29/2022 4:06 PM REFRACTORY REPAIRER) Interpretation Negative for Intraepithelial Lesion or Malignancy (NILM) 07/04/2022 10:[address] [facility] Comment Papanicolaou Test Limitations: Cervical cytology is a screening test with limited sensitivity, and regular screening is critical for cancer prevention. Pap tests are primarily effective for the diagnosis/prevent ion of squamous cell carcinoma, not adenocarcinoma or other cancers. 07/04/2022 10:[address] [facility] Specimen Adequacy Satisfactory for evaluation, endocervical/holcomb sformation zone component present 07/04/2022 10:[address] [facility] Clinical Information none 07/04/2022 10:[address] [facility] LMP/Menopause Date 06/04/22 07/04/2022 10:[address] [facility] Reflex Testing Yes if ASCUS 07/05/19 10:[address] [facility] Previous Abnormal? No 07/04/2022 10:47 AM REFRACTORY REPAIRER SPECIALTY LABS Previous Abnormal Diagnosis negative 07/04/2022 10:[address] [facility] Performing Labs The technical component of this testing was completed at [facility] 07/04/2022 10:47 AM REFRACTORY REPAIRER SPECIALTY LABS Brushing ENDOCERVICAL STRUCTURE / Unknown 06/29/2022 4:06 PM REFRACTORY REPAIRER 06/29/2022 8:03 PM REFRACTORY REPAIRER Rabia RECINOS - [place] Final Result [facility] Specialty Lab [address] [facility] [address] [facility], [address] [address], [facility] [phone] * HIV Antigen Antibody Combo (10/28/2020 4:20 PM CDT) HIV Antigen Antibody Combo Nonreactive NR^Nonrea ctive 10/29/2020 4:34 PM CDT [facility] Comment:HIV-1 p24 Ag & HIV-1 /HIV-2 Ab Not Detected Blood 10/28/2020 4:20 PM CDT 10/28/2020 4:21 PM CDT Yael Neville MD LAB - BLOOD ORDERABLES Cary l Result Performing Organization Address [facility]/ZIP Co de Phone Number [address] [address] * Hepatitis C Screen Reflex to HCV RNA Quant and Genotype (10/28/2020 4:20 PM CDT) Hepatitis C Antibody Nonreactive NR^Nonre active 10/29/2020 4:41 PM CDT [facility] Comment: Assay performance characteristics have not been established for newborns, infants, and children Blood 10/28/2020 4:20 PM CDT 10/28/2020 4:21 PM CDT Yael Neville MD LAB - BLOOD ORDERABLES Cary l Result [facility] [address] [place] [address] from Last 3 Months or Most Recently Relevant to Health Maintenance Insurance [facility] COMMERCIAL [facility] Advance Directives For more information, please contact: [phone] * Full Code (Latest Code Status on File) Date Activated Date Inactivated Comments 10/10/2019 12:38 PM 10/11/2019 4:37 PM Question Answer Comments Code status determined by: Discussion with charlene nt/legal decision maker Care Teams Rehabilitator Relationship Specialty Start Date End Date Yael Neville MD [address] [facility] [place] [address] PCP - General Internal Medicine 04/11/16 Emmy Vance Tennis Professional, MARU MOBILE SALES CONSULTANT [employer] [place] [address] [place] [address] Nurse Practitioner Nurse Practitioner 08/26/20
--- OUTSIDE RECORDS SUMMARY | 2024-06-05 17:58 | XMS_ITS | Encounter Summary ---
Author Organization [facility] Address [address] [place] [address]. [place] [address] Care Team Providers Care Hammer Shop Supervisor Name Role Phone Yael Neville MD Primary Care Provider [phone] Yael Neville MD Unavailable [phone] Gabino Peña MD Unavailable [phone] Alison YanC Unavailable + [phone] Emmy Vance Physician Recruiter POCKET CUTTER TELEGRAPH REPEATER TECHNICIAN Unavailable [phone]- [phone] Reason for Visit * Reason Comments Medication Refill Encounter Details Date Type Department Care Team (Late st Contact Info) Description 07/16/2020 [facility] Jacek [address] [place] [address] [address] [place] [address] Yael Neville MD [address] [place] [address] [place] [address] Medication Refill Social History [...] AM CDT Legal Sex Female 3:37 AM SOFTBALL CORE MOLDER Gender Identity Female 08/26/2020 11:58 AM CDT Sexual Orientation Choose not to disclose 2020 11:58 AM CDT documented as of this encounter Miscellaneous Notes * Telephone Encounter - Liyah Sosa RN - 07/16/2020 10:35 AM CDT Prescription approved per [facility], [facility] or [facility] refill protocol. Liyah Centeno - Registered Nurse [facility] documented in this encounter Plan of Treatment Upcoming Encounters Date Type Department Care Team (Late st Contact Info) Description 06/19/2024 12:00 PM SOFTBALL CORE MOLDER Infusion Therapy [place] [address] [place] [phone] Jeff Wong MD [facility] [address] [place], [place] [phone] 06/24/2024 9:00 AM SOFTBALL CORE MOLDER Infusion Therapy Visit [place] [address] [place] [address] Jeff Wong MD [facility] [address] [place], [place] [phone] 06/26/2024 2:00 PM SOFTBALL CORE MOLDER Infusion Therapy Visit [place] [address] [place] [address] Jeff Wong MD [facility] [address] [place], [place] [phone] documented as of this encounter Visit Diagnoses Diagnosis Suspected COVID-19 virus infection documented in this encounter Additional Health Concerns Assessment Noted Time PHQ-9 Depression Total Score: 16 020 8:26 AM CDT documented as of this encounter Care Teams Hammer Shop Supervisor Relationship Specialty Start Date End Date Yael Neville MD [address] [place] [address] [place] [address] PCP - General Internal Medicine 04/11/16 Yael Neville MD [address] [place] [address] [place] [address] Assigned PCP 06/13/16 03/22/24 Gabino Peña MD [address] [place] [address] Assigned Heart and Vascular Provider 02/21/20 07/03/21 Alison Yan PA-C [address] [place] [address] Assigned Sleep Provider 07/15/20 2 Emmy Vance Cnp, MARU TELEGRAPH REPEATER TECHNICIAN [employer] [place] [address] [place] [address] Nurse Practitioner Nurse Practitioner 08/26/20 documented as of this encounter
--- OUTSIDE RECORDS SUMMARY | 2024-06-05 17:58 | XMS_ITS | Encounter Summary ---
Author Organization [facility] Address [address] [place] [address]. [place] [address] Care Team Providers Care Education Dean Name Role Phone Yael Neville MD Primary Care Provider [phone] Yael Neville MD Unavailable [phone] Gabino Peña MD Unavailable [phone] Alison Yan PA-C Unavailable + [phone] Emmy Vance Supervisor Sawing And Assembly ENGINEERING WRITER CIRCULATING NURSE Unavailable [phone]- [phone] Encounter Details Date Type Department Care Team [...] AM CDT Legal Sex Female 3:37 AM ACID WASHER OPERATOR Gender Identity Female 08/26/2020 11:58 AM CDT Sexual Orientation Choose not to disclose 2020 11:58 AM CDT documented as of this encounter Plan of Treatment Upcoming Encounters Date Type Department Care Team (Late st Contact Info) Description 06/19/2024 12:00 PM ACID WASHER OPERATOR Infusion Therapy Visit [facility] [address] [facility] [address] [place] [address] Jeff Wong MD [facility] [address] [place] [address] 06/24/2024 9:00 AM ACID WASHER OPERATOR Infusion Therapy Visit [facility] [address] [facility] [address] [place] [phone] Jeff Wong MD [facility] [address] [place] [address] 06/26/2024 2:00 PM ACID WASHER OPERATOR Infusion Therapy Visit [place] [address] [facility] [address] [place] [address] Jeff Wong MD [facility] [address] [place] [address] documented as of this encounter Visit Diagnoses Not on filedocumented in this encounter Additional Health Concerns Assessment Noted Time PHQ-9 Depression Total Score: 3 08/28/19 21 7:02 AM CDT documented as of this encounter Care Teams Education Dean Relationship Specialty Start Date End Date Yael Neville MD [address] [place] [address] [place] [address] PCP - General Internal Medicine 04/11/16 Yael Neville MD [address] [place] [address] [place] [address] Assigned PCP 06/13/16 03/22/24 Gabino Peña MD [address] [place] [address] Assigned Heart and Vascular Provider 02/21/20 07/03/21 Alison Yan PA-C [address] [place] [address] Assigned Sleep Provider 07/15/20 2 Emmy Vacne Cnp, MARU CIRCULATING NURSE [employer] [place] [address] [place] [address] Nurse Practitioner Nurse Practitioner 08/26/20 documented as of this encounter
--- OUTSIDE RECORDS SUMMARY | 2024-06-05 17:58 | XMS_ITS | Clinical Summary ---
Author Organization [facility] Address [address] [place] [address] Care Team Providers Care Tuna Purse Seiner Name Role Phone Yael Neville MD Primary Care Provider [phone] Source Comments You are receiving this document as you are listed as the primary care provider,follow-up provider, or the patient has been referred to you for consultation.This is in compliance with the Medicare and[facility] Cent[facility]aid EHR Incentive Program,which states Providers who transition their patient to another setting of careor provider of care or refers their patient to another provider of care shouldprovide summary care record for each transition of care or referral. [facility] Allergies Active Allergy Reactions Criticality Noted Date Comments Azithromycin Hives 06/06/2012 Iodinated Contrast Media Anaphylaxis High 06/06/2012 Penicillins Hives 06/06/2012 Medications Medication Sig Dispensed Refills Start Date End Date Status metFORMIN (AKA GLUCOPHAGE XR) 750 MG 24 hour release tabletIndications:PCO S (polycystic ovarian syndrome) ([facility]) Take 1 tablet by mouth daily (with [...] age to complete this topic Care Teams Tuna Purse Seiner Relationship Specialty Start Date End Date Yael Neville MD [address] [facility] [place] [address] [facility] - General 06/06/12
--- OUTSIDE RECORDS SUMMARY | 2024-06-05 17:58 | XMS_ITS | Encounter Summary ---
Author Organization [facility] Address [address] [place] [address]. [place] [address] Care Team Providers Care Internet Consultant Name Role Phone Yael Neville MD Primary Care Provider [phone] Yael Neville MD Unavailable [phone] Gabino Peña MD Unavailable [phone] Alison YanC Unavailable + [phone] Emmy Vance Shucker VIDEO PRODUCTION COORDINATOR EMPLOYEE COMMUNICATIONS MANAGER Unavailable [phone]- [phone] Reason for Visit * Reason Onset Date Comments Refill Request 06/23/2020 ipratropium (ATR OVENT) 0.06 % nasal spray Encounter Details Date Type Department Care Team (Late st Contact Info) Description 06/23/2020 Refill [facility] Jacek [address] [place] [address] Drive [address] [place] [phone] [place] [address] [place] [address] [place] [address] Refill Request (ipratropium (ATROVENT) [...] CDT Legal Sex Female 3:37 AM SECOND FLOOR OPERATOR Gender Identity Female 08/26/2020 11:58 AM CDT Sexual Orientation Choose not to disclose 2020 11:58 AM CDT COVID-19 Exposure Response Date Recorded In the last month, have you been in contact with someone who was confirmed or suspected to have Coronavirus / COVID-19? Unable to assess 06/11/2020 11:40 AM SECOND FLOOR OPERATOR documented as of this encounter Miscellaneous Notes * Telephone Encounter - Yesi Best RN - 06/24/2020 12:52 PM CST Medication refilled per [facility] protocol Yesi Best RN [place] FLOOR OPERATOR documented in this encounter Plan of Treatment Upcoming Encounters Date Type Department Care Team (Late st Contact Info) Description 06/19/2024 12:00 PM SECOND FLOOR OPERATOR Infusion Therapy Visit [place] [address] [place] [phone] Jeff Wong MD [facility] [address] [place], [place] [phone] 06/24/2024 9:00 AM SECOND FLOOR OPERATOR Infusion Therapy Visit [facility] [address] [place] [phone] Jeff Wogn MD [facility] [address] [place], [place] [address] 06/26/2024 2:00 PM SECOND FLOOR OPERATOR Infusion Therapy Visit [facility] [address] [place] [phone] Jeff Wong MD [facility] [address] [place], [place] [address] documented as of this encounter Visit Diagnoses Diagnosis Suspected COVID-19 virus infection documented in this encounter Additional Health Concerns Assessment Noted Time PHQ-9 Depression Total Score: 16 020 8:26 AM CDT documented as of this encounter Care Teams Internet Consultant Relationship Specialty Start Date End Date Yael Neville MD [address] [place] [address] [place] [address] PCP - General Internal Medicine 04/11/16 Yael Neville MD [address] [place] [address] [place] [address] Assigned PCP 06/13/16 03/22/24 Gabino Peña MD [address] [place] [address] Assigned Heart and Vascular Provider 02/21/20 07/03/21 Alison Yan PA-C [address] [place] [address] Assigned Sleep Provider 07/15/20 2 Emmy Vance Cnp, MARU EMPLOYEE COMMUNICATIONS MANAGER [employer] [place] [address] [place] [address] Nurse Practitioner Nurse Practitioner 08/26/20 documented as of this encounter
--- OUTSIDE RECORDS SUMMARY | 2024-06-05 17:58 | XMS_ITS | Encounter Summary ---
Author Organization [facility] Address [address] [place] [address]. [place] [address] Care Team Providers Care Power Generation Plant Operator Name Role Phone Yael Neville MD Primary Care Provider [phone] Yael Neville MD Unavailable Frank Morrow Unavailable Unavailable Saul Freire Unavailable [phone] Gabino Peña MD Unavailable [phone] Alison Yan PA-C Unavailable [phone] Emmy Vance Brush Washer MYSQL DATABASE ADMINISTRATOR APPLIANCES SAMPLE MAKER Unavailable [phone] Reason for Visit * Reason Onset Date Comments Refill Request 02/01/2019 Encounter Details Date Type Department Care Team (Late st Contact Info) Description 02/01/2019 Refill [facility] Jacek [address] [place] [address] Drive [address] [place] [address] Yael Neville MD [address] [place] [address] [place] [address] Refill Request Social History [...] AM CDT Legal Sex Female 3:37 AM BAKED AND GRAPHITE INSPECTOR Gender Identity Female 08/26/2020 11:58 AM CDT [...] st Contact Info) Description 06/19/2024 12:00 PM BAKED AND GRAPHITE INSPECTOR Infusion Therapy Visit [place] [address] [place] [address] [place] [phone] Jeff Wong MD [facility] [address] [place] [id number] 06/24/2024 9:00 AM BAKED AND GRAPHITE INSPECTOR Infusion Therapy Visit [place] [address] [place] [address] Jeff Wong MD [facility] [address] [place] [address] 06/26/2024 2:00 PM BAKED AND GRAPHITE INSPECTOR Infusion Therapy Visit [place] [address] [place] [address] Jeff Wong MD [facility] [address] [place], [place] [phone] documented as of this encounter Visit Diagnoses Diagnosis Viral illness Unspecified viral infection, in conditions classified elsewhere and of unspecified site documented in this encounter Additional Health Concerns Infection Onset Date Last Indicated Resolved Time Rule Out COVID-19 01/14/2020 01/14/2020 01/15/2020 10:31 PM CDT Rule Out COVID-19 04/06/2020 04/06/2020 04/07/2020 10:32 AM BAKED AND GRAPHITE INSPECTOR Rule Out COVID-19 06/11/2020 06/11/2020 06/11/2020 7:00 PM BAKED AND GRAPHITE INSPECTOR Assessment Noted Time PHQ-9 Depression Total Score: 17 019 11:09 AM BAKED AND GRAPHITE INSPECTOR documented as of this encounter Care Teams Power Generation Plant Operator Relationship Specialty Start Date End Date Yael Neville MD [address] [place] [address] [place] [address] PCP - General Internal Medicine 04/11/16 Yael Neville MD [address] [place] [address] [place] [address] Assigned PCP 06/13/16 03/22/24 Frank Morrow Personal Advocate & Liaison (PAL) 03/11/19 11/03/19 Saul Freire LSW Clinic Turret Press Operator Primary Care - CC 12/02/1903/20 Gabino Peña MD [address] [place] [address] Assigned Heart and Vascular Provider 02/21/20 07/03/21 Alison Yan PA-C [address] [place] [address] Assigned Sleep Provider 07/15/20 2 Emmy Vance Cnp, MYSQL DATABASE ADMINISTRATOR APPLIANCES SAMPLE MAKER [employer] [place] [address], [place] [address] Nurse Practitioner Nurse Practitioner 08/26/20 documented as of this encounter
--- OUTSIDE RECORDS SUMMARY | 2024-06-05 17:58 | XMS_ITS | Encounter Summary ---
Author Organization [facility] Address [address] [place] [address]. [place] [address] Care Team Providers Care Apartment Manager Name Role Phone Yael Neville MD Primary Care Provider [phone] Yael Neville MD Unavailable Frank Morrow Unavailable Unavailable Saul Freire Unavailable [phone] Gabino Peña MD Unavailable [phone] Alison Yan PA-C Unavailable [phone] Emmy Vance Splicing Technician IMMUNOLOGY TEACHER AUTOMATION TECHNOLOGIST Unavailable [phone]- [phone] Encounter Details Date Type Department Care Team (Late st Contact Info) Description 08/20/2019 MyC Medical Advice [facility] Jacek [address] [facility] [address] [place] [address] Yael Neville MD [address] [facility] [place] [address] Social History [...] AM CDT Legal Sex Female 3:37 AM REFERRAL COORDINATOR Gender Identity Female 08/26/2020 11:58 AM [...] st Contact Info) Description 06/19/2024 12:00 PM REFERRAL COORDINATOR Infusion Therapy Visit [place] [address] [place] [phone] Jeff Wong MD [facility] [address] [place] [address] 06/24/2024 9:00 AM REFERRAL COORDINATOR Infusion Therapy Visit [place] [address] [place] [address] Jeff Wong MD [facility] [address] [place], [place] [address] 06/26/2024 2:00 PM REFERRAL COORDINATOR Infusion Therapy Visit [facility] [address] [place] [phone] Jeff Wong MD [facility] [address] [place], [place] [phone] documented as of this encounter Visit Diagnoses Not on filedocumented in this encounter Additional Health Concerns Infection Onset Date Last Indicated Resolved Time Rule Out COVID-19 01/14/2020 01/14/2020 01/15/2020 10:31 PM CDT Rule Out COVID-19 04/06/2020 04/06/2020 04/07/2020 10:32 AM REFERRAL COORDINATOR Rule Out COVID-19 06/11/2020 06/11/2020 06/11/2020 7:00 PM REFERRAL COORDINATOR Assessment Noted Time PHQ-9 Depression Total Score: 17 020 7:03 AM CDT documented as of this encounter Care Teams Apartment Manager Relationship Specialty Start Date End Date Yael Neville MD [address] [facility] [place] [address] PCP - General Internal Medicine 04/11/16 Yael Neville MD [address] [facility] [place] [address] Assigned PCP 06/13/16 03/22/24 Frank Morrow Personal Advocate & Liaison (PAL) 03/11/19 11/03/19 Saul Freire LSW Clinic Application Operations Engineer Primary Care - CC 12/02/1903/20 Gabino Peña MD [address] [place] [address] Assigned Heart and Vascular Provider 02/21/20 07/03/21 Alison Yan PA-C [address] [place] [address] Assigned Sleep Provider 07/15/20 2 Emmy Vance Cnp, MARU AUTOMATION TECHNOLOGIST [employer] [place] [address] [place] [address] Nurse Practitioner Nurse Practitioner 08/26/20 documented as of this encounter
--- OUTSIDE RECORDS SUMMARY | 2024-06-05 17:58 | XMS_ITS | Encounter Summary ---
Author Organization [facility] Address [facility] [place] [address] Care Team Providers Care Car Rental Agent Name Role Phone Yael Neville MD Primary Care Provider Emmy Vance Municipal Maintenance Worker CNC PROGRAMMER DRAFTER ELECTRONIC Unavailable [phone] Encounter Details Date Type Department Care Team (Late st Contact Info) Description 05/27/2024 Orders Only [facility] [address] [facility], [address] [place] [address] Jeff Wong MD [facility] [address] [place] [address] Iron deficiency anemia, unspecified (Primary [...] AM CDT Legal Sex Female 3:37 AM IOS SOFTWARE ENGINEER Gender Identity Female 08/26/2020 11:58 AM CDT Sexual Orientation Choose not to disclose 2020 11:58 AM CDT documented as of this encounter Progress Notes * Natanael Ramirez RPH - 05/27/2024 10:28 AM CST Images from the original note were not included. SOFTWARE ENGINEER documented in this encounter Plan of Treatment Upcoming Encounters Date Type Department Care Team (Late st Contact Info) Description 06/19/2024 12:00 PM IOS SOFTWARE ENGINEER Infusion Therapy Visit [place] [address] [address] [place] [phone] Jeff Wong MD [facility] [address] [place] [address] 06/24/2024 9:00 AM IOS SOFTWARE ENGINEER Infusion Therapy Visit [place] [address] [address] [place] [phone] Jeff Wong MD [facility] [address] [place], [place] [phone] 06/26/2024 2:00 PM IOS SOFTWARE ENGINEER Infusion Therapy Visit [facility] [address] [place] [phone] Jeff Wong MD [facility] [address] [place], [place] [phone] documented as of this encounter Visit Diagnoses Diagnosis Iron deficiency anemia, unspecified- Primary Anemia complicating in third trimester Anemia, antepartum documented in this encounter Additional Health Concerns Assessment Noted Time PHQ-9 Depression Total Score: 1 10/30/19 21 7:05 AM CDT documented as of this encounter Care Teams Car Rental Agent Relationship Specialty Start Date End Date Yael Neville MD [address] [place] [address] PCP - General Internal Medicine 04/11/16 Emmy Vance Cnp, MARU DOWNS [employer] [place] [address] [place] [address] Nurse Practitioner Nurse Practitioner 08/26/20 documented as of this encounter
--- OUTSIDE RECORDS SUMMARY | 2024-06-05 17:58 | XMS_ITS | Encounter Summary ---
Author Organization [facility] Address [address] [place] [address]. [place] [address] Care Team Providers Care House Carpenter Helper Name Role Phone Yael Neville MD Primary Care Provider [phone] Yael Neville MD Unavailable [phone] Gabino Peña MD Unavailable [phone] Alison YanC Unavailable [phone] Emmy Vance Radiochemical Technician CLOTH BURLER SEPTIC CLEANER Unavailable [phone] Encounter Details Date Type Department Care Team (Late st Contact Info) Description 07/21/2020 MyC Medical Advice [facility] Jacek [address] [facility] [address] [place] [address] Yael Neville MD [address] [place] [address] [place] [address] Social History Tobacco Use [...] AM CDT Legal Sex Female 3:37 AM STENO POOL SUPERVISOR Gender Identity Female 08/26/2020 11:58 AM CDT Sexual Orientation Choose not to disclose 2020 11:58 AM CDT documented as of this encounter Plan of Treatment Upcoming Encounters Date Type Department Care Team (Late st Contact Info) Description 06/19/2024 12:00 PM STENO POOL SUPERVISOR Infusion Therapy Visit [place] [address] [place] [address] [place] [phone] Jeff Wong MD [facility] [address] [place], [place] [phone] 06/24/2024 9:00 AM STENO POOL SUPERVISOR Infusion Therapy Visit [facility] [address] [place] [phone] Jeff Wong MD [facility] [address] [place] [address] 06/26/2024 2:00 PM STENO POOL SUPERVISOR Infusion Therapy Visit [place] [address] [address] [place] [phone] Jeff Wong MD [facility] [address] [place], [place] [phone] documented as of this encounter Visit Diagnoses Not on filedocumented in this encounter Additional Health Concerns Assessment Noted Time PHQ-9 Depression Total Score: 16 020 8:26 AM CDT documented as of this encounter Care Teams House Carpenter Helper Relationship Specialty Start Date End Date Yael Neville MD [address] [place] [address] [place] [address] PCP - General Internal Medicine 04/11/16 Yael Neville MD [address] [facility] [place] [address] Assigned PCP 06/13/16 03/22/24 Gabino Peña MD [address] [place] [address] Assigned Heart and Vascular Provider 02/21/20 07/03/21 Alison Yan PA-C [address] [place] [address] Assigned Sleep Provider 07/15/20 2 Emmy Vance Cnp, AMRU SEPTIC CLEANER [employer] [place] [address] [place] [address] Nurse Practitioner Nurse Practitioner 08/26/20 documented as of this encounter
--- OUTSIDE RECORDS SUMMARY | 2024-06-05 17:58 | XMS_ITS | Continuity of Care Document ---
Author Organization [facility] Address [address] [address] [place] [address] Phone Care Team Providers Care Network Intelligence Analyst Name Role Phone Rigo PATRICIA, Tiffany Unavailable Unavailable Allergies, Adverse Reactions, Alerts Substance Reaction Status Criticality Iodinated Contrast Media HivesHives Active No Information azithromycin HivesHives Active No Information Penicillins HivesHives Active No Information Medications Medication Instructions Dosage Effective Dates (start - stop) Status Comments hyoscyamine 0.[address] 1 by Sublingual route four times daily as needed - Active Linzess 145 mcg capsule take 1 capsule by oral route every day on an empty stomach at least 30 minutes before 1st meal of the day swallowing whole. Do not break, chew and/or open. 145 MCG - Active Karla (28) 3 mg-0.03 mg tablet take 1 tablet by oral route every day 1.00 tablet - Active METFORMIN HCL (unknown strength) take 1 tablet by ORAL route every day with morning and evening meals Not Available - Active LAMICTAL (unknown strength) take 1 tablet by oral route every day Not Available - Active PRAZOSIN HCL (unknown strength) take 1 capsule by oral route every day Not Available - Active bupropion HCl XL 450 mg 24 hr tablet, extended release take 1 tablet by oral route every day swallowing whole. Do not crush, chew and/or divide. 450 MG - Active propranolol 20 mg tablet take 1 Tablet by oral route 3 times every day as needed 20 MG - Active lamotrigine 200 mg tablet take 1 Tablet by oral route every day 200 MG - Active metformin 500 mg tablet take 1 tablet by oral route 2 times every day with morning and evening meals 500 MG - Active Control Pill ORAL TABLET Take one tablet by mouth daily - Active hyoscyamine 0.[address] 1 by Sublingual route four times daily as needed - No Longer Active Procedures Procedure Date New Level 4 Offic/outpt E&m [facility] Routine Serum Collection Thyroid Stim Hormone Advance Directives Directive Yes / No Effective Date File Name No Information Encounters Encounter Description Practice Location Reason(s) For Visit Diagnoses Date Provider Providers Copied on Encounter [facility], [address] [address], [place], [id number], [place] tel:[phone] [facility] No Information 2 Rigo Allen. [address] [facility], [facility] [place], [id number] , [place]. tel: [phone] [facility] 4 [facility], [address] [address], [place], [id number], [place] tel:[phone] [facility] Symptoms or Concerns (chief complaint) Irritable bowel syndrome with constipationChroni c idiopathic constipationBloati ng 2 Rigo Allen. [address] [facility] [address], [place], [place], [id number] , [place]. tel: [phone] Referring Provider: Referral Self, USE FOR SELF REFERRALS. [facility], [address] [address], [place], [id number], [place] tel:[phone] [facility] No Information 2 Annmarie Santoyo. [address] [facility] [address], [address], [facility], [place], [id number] , [place]. tel: [phone] Offic/outpt E&m [facility], [address] [address], [place], [id number], [place] tel:[phone] [facility] GI Symptoms or Concerns (chief complaint) Chronic idiopathic constipationDietar y counseling and surveillance 8 Buddy Felix. [address] [facility], [place], [place], [id number] , [place]. tel:[phone] Referring Provider: Yael Neville MD E, [address] [facility], [place], [address]. tel:[phone] Family History Family Member Type Diagnosis Age At Onset Brother Problem (finding) asthma Mother Problem (finding) alcoholism Mother Problem (finding) Colon polyps Father Problem (finding) Alive and well Mother Problem (finding) asthma Father Problem (finding) alcoholism Immunizations Vaccine Date Status Comments SARS-COV-2 (COVID-19) vaccin e, mRNA, spike protein, LNP, preservative free, 30 mcg/0.3mL dose administered Note: [facility] bi-direct ional interface ; Source: Other Registry Afluria Qd administered Note: [facility] bi-directional interface ; Source: Other Registry SARS-COV-2 (COVID-19) vaccin e, mRNA, spike protein, LNP, preservative free, 30 mcg/0.3mL dose administered Note: [facility] bi-direct ional interface ; Source: Other Registry SARS-COV-2 (COVID-19) vaccin e, mRNA, spike protein, LNP, preservative free, 30 mcg/0.3mL dose administered Note: [facility] bi-direct ional interface ; Source: Other Registry tetanus toxoid, reduced diphtheria toxoid, and acellular pertussis vaccine, adsorbed administered Note: [facility] b i-directional interface ; Source: Other Registry Afluria Qd administered Note: [facility] bi-directional interface ; Source: Other Registry meningococcal polysaccharide (groups A, C, Y and W-135) diphtheria toxoid conjugate vaccine (MCV4P) administered Note: [facility] bi-direct ional interface ; Source: Other Registry human papilloma virus vaccin e, quadrivalent administered Note: [facility] bi-direct ional interface ; Source: Other Registry meningococcal oligosaccharid e (groups A, C, Y and W-135) diphtheria toxoid conjugate vaccine (MCV4O) administered Note: [facility] bi-direct ional interface ; Source: Other Registry human papilloma virus vaccin e, quadrivalent administered Note: [facility] bi-direct ional interface ; Source: Other Registry Influenza, seasonal, injectable administe red Note: [facility] bi- directional interface ; Source: Other Registry Havrix pediatric administered Note: [facility] bi-directional interface ; Source: Other Registry tetanus toxoid, reduced diphtheria toxoid, and acellular pertussis vaccine, adsorbed administered Note: [facility] b i-directional interface ; Source: Other Registry Havrix pediatric administered Note: [facility] bi-directional interface ; Source: Other Registry Influenza, seasonal, injecta ble, preservative free administered Note: [facility] bi-direct ional interface ; Source: Other Registry diphtheria, tetanus toxoids and acellular pertussis vaccine administered Note: [facility] b i-directional interface ; Source: Other Registry varicella virus vaccine administered Note : [facility] bi-directional interface ; Source: Other Registry measles, mumps and rubella v irus vaccine administered Note: [facility] bi-direct ional interface ; Source: Other Registry poliovirus vaccine, inactivated administe red Note: [facility] bi- directional interface ; Source: Other Registry measles, mumps and rubella v irus vaccine administered Note: [facility] bi-direct ional interface ; Source: Other Registry Energix Pediatric administered Note: [facility] bi-directional interface ; Source: Other Registry DTaP-Haemophilus influenzae type b conjugate vaccine administered Note: [facility] bi-direct ional interface ; Source: Other Registry Energix Pediatric administered Note: [facility] bi-directional interface ; Source: Other Registry Haemophilus influenzae type b vaccine, conjugate unspecified formulation administered Note: [facility] bi-direct ional interface ; Source: Other Registry diphtheria, tetanus toxoids and acellular pertussis vaccine administered Note: [facility] b i-directional interface ; Source: Other Registry Haemophilus influenzae type b vaccine, conjugate unspecified formulation administered Note: [facility] bi-direct ional interface ; Source: Other Registry diphtheria, tetanus toxoids and acellular pertussis vaccine administered Note: [facility] b i-directional interface ; Source: Other Registry DTaP-Haemophilus influenzae type b conjugate vaccine administered Note: [facility] bi-direct ional interface ; Source: Other Registry Energix Pediatric administered Note: [facility] bi-directional interface ; Source: Other Registry Energix Pediatric administered Note: [facility] bi-directional interface ; Source: Other Registry Payers Payer name Insurance type Covered alliance party ID Authoriza tion(s) No Information Social History Type Description Quantity Date Captured Comments Alcohol Use Details Unknown Caffeine Use Details Unknown Tobacco Use Status No Information Smoking Status No Information Sex Female Chief Complaint And Reason For Visit No Information Reason For Referral Reason For Referral No Information Plan Of Treatment Date Type Action Status Goal Lifestyle education regardin g diet completed Referral Ordered: Calprotectin, Fecal Appointment date/timeframe: First Available ordered History Of Present Illness Encounter Date Complaint History Of Presregine nt Illness GI Symptoms or Concerns Daysi johnston is a 25-year-old female who presents today as a new patient consult, referred to our clinic by Yael Neville MD for symptoms of constipation, bloating and nausea. She is present today via virtual visit. She has verified her date and address and consented to this visit in a private location, able to conduct this visit. Twenty minutes were spent on this encounter. Her medical history includes anxiety, depression, and PCOS, on metformin.She has had an intentional 25-pound weight loss over the last year. She reports that her symptoms come in waves. She will have 2 to 3 days of a significant amount of urgent watery stools with associated abdominal cramping. The bowel movements will be about 3 to 4 per day. No incontinence. She reports defecating undigested pills. She has a sense of complete defecation after this 2 to 3 days of bowel frequency. If the symptoms last longer than 3 days, she will sometimes use Pepto-Bismol with benefit. She reports haritha GI Symptoms or Concerns I had th e pleasure of meeting Ms. Michelle Heck, 22-year-old woman seen in consultation at the request of Dr. Yael Neville for evaluation of chronic constipation, nausea, bloating.Daysi is seen with her mother today and they gave a narrative of symptoms since manager sign. It sounds like since Daysi was 10 years old, she had struggled to pass bowel movements on a regular basis and her mother said she was often reliant on enemas as a child. Moving forward throughout her adolescence and teenage years and currently she says that she makes a bowel movement approximately every 4 to 5 days. Typically between these episodes, she can pass some small ingris of stool, but nothing really robust. She describes that at times she simply does not have the urge to go and at other times when she has the urge, she is unable to pass stool despite straining. She is never able to pass a bowel movement easily and even when she is able to pass a normal bowel movement, this requires s Functional Status Date Functional Assessmen t No Information Instructions Date Instruction Additional Infor kaushal Bowel cleanse with 1 4 capfuls of miralax mixed with 64 oz of fluid drinking 8 oz every 15 minutes until gone then start linzess 145 mcg 1/2 hour before breakfast. You will have 3 to 4 BM controlled daily x 7d then daily- if less than this then increase to 290 mcg ( 2 tabs of your current prescription) and alert me so I can send in 290 mcg tablet. If still with constipation restart miralax one to two capfuls daily hyoscyamine 1 tablet four times daily as needed for abdominal painif unable to achieve a good bowel pattern then I would recommend a flexible sigmoidoscopy to look for structural abnormalities and then pelvic floor evaluation I will also check you stool for inflammation. If present then colon/EGD to assess for crohns disease. Related to Irritable bowel syndrome with constipation 1. Check thyroid lab s.2. Colon cleanse followed by daily laxatives.3. Follow up in one month.Thank you so much for involving me in the care of Ms. Heck. Related to Chronic idiopathic constipation Lifestyle education regarding di et Related to Dietary counseling and surveillance Assessments Type Assessment Date No Information Patient Care Teams Name Effective Dates (start - stop) Status Members No Information
--- OUTSIDE RECORDS SUMMARY | 2024-06-05 17:59 | XMS_ITS | Encounter Summary ---
Author Organization [facility] Address [address] [place] [address]. [place] [address] Care Team Providers Care Triage Assistant Name Role Phone Yael Neville MD Primary Care Provider [phone] Emmy Vance Fashion Model MERCHANDISE EXECUTION LEADER LEGAL EXECUTIVE ASSISTANT Unavailable [phone] Reason for Visit * Reason Comments Ankle Pain Encounter Details Date Type Department Care Team (Late st Contact Info) Description 06/04/2024 8:22 PM MANAGER OF CONSTRUCTION - 06/04/2024 9:51 PM [facility] [address] [place] [address] Sterling Salas MD [facility] [address] [place] [address] Right leg pain; state, incidental Discharge Disposition: [...] AM CDT Legal Sex Female 3:37 AM MANAGER OF CONSTRUCTION Gender Identity Female 08/26/2020 11:58 AM CDT Sexual Orientation Choose not to disclose 2020 11:58 AM CDT documented as of this encounter Last Filed Vital Signs Vital Sign Reading Time Taken Comments Blood Pressure 125/79 06/04/2024 7:54 PM MANAGER OF CONSTRUCTION Pulse 85 06/04/2024 7:53 PM MANAGER OF CONSTRUCTION Temperature 37.2 C (99 F) 06/04/2024 7:53 PM MANAGER OF CONSTRUCTION Respiratory Rate 18 06/04/2024 7:53 PM MANAGER OF CONSTRUCTION Oxygen Saturation 98% 06/04/2024 7:53 PM MANAGER OF CONSTRUCTION Inhaled Oxygen Concentration - - Weight 100.9 kg (222 lb 7.1 oz) 06/04/2024 7:53 PM MANAGER OF CONSTRUCTION Height 167.6 cm (5' 6) 06/04/2024 7:53 PM MANAGER OF CONSTRUCTION Body Mass Index 35.9 06/04/2024 7:53 PM MANAGER OF CONSTRUCTION documented in this encounter Discharge Instructions * Attachments The following attachments cannot be sent through Care Everywhere. * Leg Pain (Cape Verdean) documented in this encounter Medications at Time of Discharge buPROPion (WELLBUTRIN XL) 300 MG 24 hr tablet Take 300 mg by mouth daily 08/04/2020 guaiFENesin 1200 MG [id number] uspected COVID-19 virus infection Take 1 tablet (1,200 mg) by mouth 2 times daily 60 tablet 02/22/2021 ipratropium (ATROVENT) 0.06 % nasal sprayIndications: Suspected COVID-19 virus infection [place] 2 sprays in nostril 4 times daily [...] discharge paperwork and last set of vitals. 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 Independent Historian None [...] Documentation None Medical Decision Making / Diagnosis [facility] Diagnoses: None MIPS None [facility] Daysi Heck is a 28 year old [...] I also recommended follow-up with her primary informatics coordinator if symptoms persisted with a negative ultrasound. [...] statements to me. Sterling Salas MD 06/04/242214 GER OF CONSTRUCTION * Lexii Douglas RN - 06/04/2024 7:51 PM CST Pt arrives for concern for blood clot, pain primarily above the outer aspect of the R ankle, first noticed around 1100 today. Pt is 31 wks . Minimal swelling/redness noted. Denies pain behindthe knee or recent long travel. Denies trauma to the ankle. AVSS on RA. GER OF CONSTRUCTION documented in this encounter Plan of Treatment Upcoming Encounters Date Type Department Care Team (Late st Contact Info) Description 06/19/2024 12:00 PM MANAGER OF CONSTRUCTION Infusion Therapy Visit [place] [address] [address] [place] [phone] Jeff Wong MD [facility] [address] [address] 06/24/2024 9:00 AM MANAGER OF CONSTRUCTION [facility] [address] [place] [phone] Jeff Wong MD [facility] [address] [place] [address] 06/26/2024 2:00 PM MANAGER OF CONSTRUCTION [facility] [address] [place] [phone] Jeff Wong MD [facility] [address] [place], [place] [id number] documented as of this encounter Procedures Procedure Name Priority Date/Time Associated Diagnosis Comments US LOWER EXTREMITY VENOUS DUPLEX RIGHT STAT 06/04/2024 9:26 PM MANAGER OF CONSTRUCTION documented in this encounter Results * US Lower Extremity Venous Duplex Right (06/04/2024 9:26 PM MANAGER OF CONSTRUCTION) Anatomical Region Laterality Modality Lower Extremity Ultrasound 06/04/2024 9:26 PM MANAGER OF CONSTRUCTION Impressions 06/04/2024 9:34 PM MANAGER OF CONSTRUCTION IMPRESSION: 1. No deep venous thrombosis in the right lower extremity. Narrative 06/04/2024 9:34 PM MANAGER OF CONSTRUCTION EXAM: US LOWER EXTREMITY VENOUS DUPLEX RIGHT [...] documented as of this encounter Care Teams Triage Assistant Relationship Specialty Start Date End Date Yael Neville MD [facility] [place] [address] PCP - General Internal Medicine 04/11/16 Emmy Vance Cnp, MARU DOWNS [facility] [address] [address] Nurse Practitioner Nurse Practitioner 08/26/20 documented as of this encounter
--- OUTSIDE RECORDS SUMMARY | 2024-06-05 17:59 | XMS_ITS | Encounter Summary ---
Author Organization [employer] Address [address] [place] [address]. [place] [address] Care Team Providers Care Teletype Mechanic Name Role Phone Yael Neville MD Primary Care Provider [phone] Emmy Vance Cath Lab Manager FINANCE ASSOCIATE TEST EVALUATOR Unavailable [phone] Encounter Details Date Type Department Care Team [...] AM CDT Legal Sex Female 3:37 AM AVIONICS ELECTRICAL ENGINEER Gender Identity Female 08/26/2020 11:58 AM CDT Sexual Orientation Choose not to disclose 2020 11:58 AM CDT documented as of this encounter Plan of Treatment Upcoming Encounters Date Type Department Care Team (Late st Contact Info) Description 06/19/2024 12:00 PM AVIONICS ELECTRICAL ENGINEER Infusion Therapy Visit [facility] [address] [place] [phone] Jeff Wong MD [facility] [address] [place], [place] [id number] 06/24/2024 9:00 AM AVIONICS ELECTRICAL ENGINEER Infusion Therapy Visit [facility] [address] [employer] [address] [place] [phone] Jeff Wong MD [facility] [address] [place], [place] [phone] 06/26/2024 2:00 PM AVIONICS ELECTRICAL ENGINEER Infusion Therapy Visit [facility] [address] [employer] [employer] [address] [place] [phone] Jeff Wong MD [facility] [address] [place] [address] documented as of this encounter Visit Diagnoses Not on filedocumented in this encounter Additional Health Concerns Assessment Noted Time PHQ-9 Depression Total Score: 1 10/30/19 21 7:05 AM CDT documented as of this encounter Care Teams Teletype Mechanic Relationship Specialty Start Date End Date Yael Neville MD [address] [place] [address] [place] [address] PCP - General Internal Medicine 04/11/16 Emmy Vance Cnp, FINANCE ASSOCIATE TEST EVALUATOR [facility] [place] [address] [place], [place] [phone] Nurse Practitioner Nurse Practitioner 08/26/20 documented as of this encounter
--- OUTSIDE RECORDS SUMMARY | 2024-06-05 17:59 | XMS_ITS | Clinical Summary ---
Author Organization [facility] Address [place], [place] [address] Care Team Providers Care Radio Station Operator Name Role Phone Yael Neville MD [...] 8:19 AM 09/09/2016 2:31 AM Care Teams Radio Station Operator Relationship Specialty Start Date End Date Yael Neville MD [address] [place] [address] [place] [address] PCP - General Internal Medicine 09/06/16
[2024-06-05 18:32] VITALS: BP 121/69; PULSE 73; RESP 18; TEMP 36.6; O2SAT 97
== END 2024-06-05 18:56 | disposition home or self-care (01) ==
PROVIDERS: Emergency Provider Family Medicine; PCP Internal Medicine
DX: L03.115 Cellulitis of right lower limb (principal)
CPT/HCPCS: 36415; 85025; 86140; 99283; 99284